=== PATIENT | female | born 1955 | race Caucasian/White ===

== ENCOUNTER 2017-04-16 17:20 | Emergency (ER) | payer BC, SELFPAY ==
[2017-04-16 17:21] VITALS: BP 169/90; PULSE 70; RESP 17; TEMP 36.6; O2SAT 95; BMI 43.7
[2017-04-16 18:18] VITALS: BP 118/60; PULSE 63; RESP 13; O2SAT 95
--- NOTE | 2017-04-16 18:44 | EKG12_ITS ---
Test Reason : Blood Pressure : / mmHG Vent. Rate : 053 BPM Atrial Rate : 053 BPM P-R Int : 192 ms QRS Dur : 082 ms QT Int : 430 ms P-R-T Axes : 005 009 022 degrees QTc Int : 403 ms Sinus bradycardia Otherwise normal ECG Confirmed by REYMUNDO RAYMOND ([id number]), health editor SHEN SINCLAIR ([id number] on 04/21/2017 10:08:35 AM Referred By: ERNIE Confirmed By:REYMUNDO RAYMOND
--- NOTE | 2017-04-16 18:44 | CT_ITS ---
STUDY: CTA OF THE BRAIN REASON FOR EXAM: Female, 61 years old. Headache for 2 weeks, dizziness, high blood pressure. RADIATION DOSAGE (If Supplied By Facility): CTDIvol = ( 22.19 ) mGy, DLP = ( 1409.55 ) mGycm TECHNIQUE: CT angiography was performed with a multi-detector CT scanner. Data acquisition was obtained from the skull base through the vertex following intravenous administration of 100 ml of Isovue-370. MIP images were reconstructed from the axial data set. Post-processing of the angiographic images was performed, with multiplanar reformation and 3D reconstruction. Individualized dose optimization techniques were used for this CT. COMPARISON: Noncontrast CT brain April 06, 2017. FINDINGS: Normal bilateral petrous carotid arteries. There is minimal calcified plaque formation of the right cavernous carotid artery, without a cross-sectional luminal stenosis. There is minor calcified plaque formation of the left cavernous carotid artery, without a cross-sectional luminal stenosis. Normal A1 segment of the right anterior cerebral artery. Normal A1 segment of the left anterior cerebral artery. Normal intact anterior communicating artery (ACOM). Normal bilateral A2 segments of the anterior cerebral arteries. Normal M1 and M2 segments of the right middle cerebral artery, with a normal M1 bifurcation. Normal M1 and M2 segments of the left middle cerebral artery, with a normal M1 bifurcation. Normal right posterior communicating artery (PCOM). There is non-visualization of the left posterior communicating artery (PCOM). Normal bilateral vertebral arteries. Normal basilar artery with a normal basilar bifurcation. The visualized bilateral superior cerebellar (SCA) arteries are normal. Normal bilateral P1, P2 and visualized P3 segments of the posterior cerebral arteries. There is no demonstrated aneurysm of the [place]. There is no demonstrated abnormality of the visualized brain. CT/CTA Head W/WO Contrast IMPRESSION: Normal [place] without a demonstrated aneurysm or hemodynamically significant stenosis. Electronically Signed: Kevin Bass MD at 19:58 EST , Service support ,
--- NOTE | 2017-04-16 18:44 | CT_ITS ---
STUDY: CTA NECK WITH CONTRAST REASON FOR EXAM: Female, 61 years old. Headache, dizziness, elevated blood pressure RADIATION DOSAGE (If Supplied By Facility): CTDIvol = ( ) mGy, DLP = ( ) mGycm TECHNIQUE: CT angiography with multi-detector data acquisition was performed from the aortic arch to the skull base following intravenous administration of 100 ml of Isovue-370 contrast. MIP images were reconstructed from the axial data set. Post-processing of the angiographic images was performed, with multiplanar reformation and 3D reconstruction. Individualized dose optimization techniques were used for this CT. COMPARISON: None. FINDINGS: Incidental note of an 8 x 5 x 7 mm hypodense lesion in the upper left lobe of the thyroid gland. There are multilevel degenerative changes of the cervical spine. Mild fullness of the soft tissues of the posterior nasopharynx may reflect hypertrophy of the adenoids. AORTIC ARCH: Normal visualized aortic arch. Normal origins of the brachiocephalic, left common carotid, and left subclavian arteries. RIGHT CAROTID ARTERIES: Normal right common carotid artery (CCA). Normal right common carotid bulb. Normal origin of the right internal carotid (ICA) artery without a hemodynamically significant stenosis. There is tortuous elongation of the proximal cervical portion of the right internal carotid artery. Normal origin of the right external carotid artery (ECA). LEFT CAROTID ARTERIES: Normal left common carotid artery (CCA). Normal left common carotid bulb. Normal origin of the left internal carotid (ICA) artery without a hemodynamically significant stenosis. There is borderline to mild tortuous elongation of the cervical portion of the left internal carotid artery. Normal origin of the left external carotid artery (ECA). VERTEBRAL ARTERIES: Patent bilateral vertebral arteries without hemodynamically significant stenosis. Mild smooth narrowing is seen at the origin of the right vertebral artery, while there is a hairpin tortuosity of the proximal left vertebral artery. CT/CTA Neck W/WO Contrast IMPRESSION: 1. No hemodynamically significant stenosis of the bilateral cervical carotid and vertebral arteries. 2. 8 mm lesion in the upper left lobe of the thyroid gland. Further characterization with ultrasound is advised. 3. Multilevel degenerative changes of the cervical spine. Electronically Signed: Kevin Bass MD at 19:45 EST , Service support ,
[2017-04-16 19:04] LABS: Absolute Lymphocyte Count 2.18 X10^3/ul (0.83-4.51); Absolute Neutrophil Count 4.9 X10^3/uL (2.0-7.7); Basophil# 0.03 X10^3/uL; Basophil% 0.4 % (0-1); Eosinophil# 0.11 X10^3/uL; Eosinophils% 1.4 % (0-5); Hematocrit 44.4 % (37-47); Hemoglobin 14.9 g/dl (12.0-15.0); Lymphocyte # 2.18 X10^3/ul (4.0); Lymphocyte % 28.1 % (19-41); Mean Corp Hgb Conc 33.6 g/gl (32-36); Mean Corpuscular Hgb 27.9 pg (27.0-32.0); Mean Corpuscular Volume 83.1 fL (81-99); Mean Platelet Vol. 10.1 fl (6.2-12.0); Monocyte# 0.57 X10^3/uL; Monocyte% 7.4 % (0-10); Neutrophil # 4.85 X10^3/uL (2.7-7.7); Neutrophil % 62.6 % (47-70); Platelet Count 296 K/mm3 (150-450); RBC Distribution Width CV 13.2 % (11.6-14.6); RBC Distribution Width SD 39.7 fl (35.1-43.9); Red Blood Count 5.34 M/mm3 (4.2-5.4); White Blood Count 7.8 K/mm3 (4.4-11.0)
[2017-04-16 19:09] LABS: Anion Gap 7 (5-15); BUN 24 mg/dL (7-18); BUN/Creat Ratio 24.7 RATIO (10-20); Calcium,Total 8.7 mg/dL (8.5-10.1); Chloride 108 mmol/L (98-107); Creatinine, Serum 0.97 mg/dL (0.55-1.02); EST Glomerular Filtration Rate 62 mL/min (>60); Est Glom Filt Rate - Afr Amer 75 mL/min (>60); Estimated Creatinine Clearance 51.02 ml/min; Glucose 109 mg/dL (70-110); POSITIVE COUNT NO; POSITIVE DIFFERENTIAL NO; POSITIVE MORPHOLOGY NO; Potassium 3.9 mmol/L (3.5-5.1); Sodium Level 141 mmol/L (136-145)
[2017-04-16 20:08] VITALS: BP 139/71; PULSE 60; RESP 16; O2SAT 96
--- NOTE | 2017-04-16 20:42 | ED.DCSUM_ITS ---
- ER Visit Summary Date of Service: 04/16/17 Chief Complaint: Headache and elevated blood pressure History of Present Illness: The patient is a 61 F who states that after Piyush and beginning of this month she is sick. She had a lot of coughing. She states that since that time she has had episodes where she gets a bad headache on the left side and she takes her blood pressure is elevated. She had her blood pressure pills altered yesterday. Today she had little ones with her and began to have the headache her blood pressures up and she just did not feel right and that was concerning for her. She denies any syncope. She denies any arm or leg symptoms. No slurred speech. No vision changes. Physical Examination: Blood pressure in the room is 118/60 temperature 97.9 heart rate is 63 respirations are 13 pulse ox is 95% on room air Gen: Well-nourished well-developed Head: Normocephalic atraumatic Eyes: Perrl EOMI ENT: TMs clear no rhinorrhea moist mucous membranes Neck: Supple no lymphadenopathy no JVD nontender CVS: Regular rate rhythm no murmurs normal S1-S2 Respiratory: No distress clear to auscultation bilaterally chest nontender Abdomen: Soft nontender nondistended normal bowel sounds no masses Back: Nontender Extremity: Nontender no edema Skin: Normal color no rash Neuro: alert orientated ?3 CN II-XII intact normal strength sensation reflexes gait cerebellar Psych: Normal affect normal mood Test Results: EKG sinus at a rate of 53. CBC and chemistries are normal. CTA of the head and neck were negative. Emergency Department Course and Treatment: There is no evidence of dissection. No evidence of aneurysm. Think the patient is having difficulty managing her blood pressure with frequent ups and downs. She does take her blood pressure quite frequently throughout the day which could contribute to her elevated pressures. Think it safe to discharge her home and have her follow-up with her doctors. I recommend her staying with her new regimen of blood pressure pills Impression: 1. Headache 2. Elevated blood pressure This note was generated with [employer] dictation software. It may contain incorrect words, spelling, and punctuation that were not noted in review of the chart prior to signing ED Disposition - Plan for ED Patient: Disposition: Home or Assisted Living Chief Complaint: Hypertension Instructions: ED HTN Established Referrals: Chacha Bynum DO [Primary Care Provider] - 1 Week
[2017-04-16 21:07] VITALS: BP 138/97; PULSE 60; RESP 16; O2SAT 93
== END 2017-04-16 21:08 | disposition home or self-care (01) ==
PROVIDERS: Emergency Provider Emergency Medicine; Family Provider Internal Medicine; PCP Internal Medicine
DX: R51 Headache (principal); R03.0 Elevated blood-pressure reading, without diagnosis of hypertension; R05 Cough
CPT/HCPCS: 70496; 70498; 80048; 85025; 93005; 99284; Q9967; A4216

== ENCOUNTER → 2017-04-22 12:32 | Outpatient (CLI) | payer BC, SELFPAY ==
--- NOTE | 2017-04-22 12:34 | US_ITS ---
STUDY: THYROID ULTRASOUND REASON FOR EXAM: Female, 61 years old. Thyroid nodule TECHNIQUE: Ultrasound evaluation of the thyroid was performed with real-time and static arteaga-scale imaging. COMPARISON: None. FINDINGS: RIGHT LOBE: The right lobe of the thyroid gland measures 4.8X2X1.7 cm. There is a homogeneous echotexture. 8 x 6 x 6.0 nodule. This is in the mid pole. The lesion is solid with regular margins and intra- nodular doppler flow. LEFT LOBE: The left lobe of the thyroid gland measures 4.4X2.1X1.4 cm. There is a homogeneous echotexture. Cystic nodule containing calcification visualized measuring 8 x 7 x 5 mm. Hypervascular nodule noted measuring 10 x 7 x 6 cm. Cyst noted measuring 3 x 4 x 2 mm. The lesion is solid/cystic with regular margins and INTRA AND kush nodular doppler flow. ISTHMUS: The isthmus measures 2mm. US/Thyroid IMPRESSION: Bilateral thyroid nodules. The [place] [employer] (AACE) in collaboration with the [employer] (MAGDALENO) and the Thyroid Association (ETA) published guidelines for the diagnosis and management of thyroid nodules. Biopsy of any solid and hypoechoic nodule larger than 1 cm in diameter. Thyroid nodules of any size undergo biopsy if the patient has been exposed to irradiation, has a family history of medullary carcinoma or multiple endocrine neoplasia, or has previously undergone partial thyroidectomy for thyroid cancer or if an elevated calcitonin level is present. The AACE/MAGDALENO/ETA guidelines recommend biopsy of nodules of any size with marked hypoechogenicity, irregular or microlobulated margins, a taller than wide configuration (anteroposterior dimension greater than transverse dimension), microcalcifications, or chaotic arrangement of intranodular vascular images or chaotic intranodular vascular spots. These guidelines recommend biopsy independent of size if ultrasonography suggests the presence of metastatic lymph nodes or if extracapsular growth is noted in the nodule. They recommend biopsy of the solid component of all complex cystic nodules because of the risk of cystic papillary carcinoma. They further suggest that nodules that are hot on scintigraphy do not require biopsy. -Current Guidelines for the Management of Thyroid Nodules. Hollis Curtis MD, EZE MARION. Endocr Pract. 2012; 18(4): 596-599. Electronically Signed: Huy Lew MD at 16:49 EST , Service support ,
== END ==
PROVIDERS: Family Provider Internal Medicine; PCP Internal Medicine; Visit Provider Internal Medicine
DX: E04.1 Nontoxic single thyroid nodule (principal)
CPT/HCPCS: 76536

== ENCOUNTER → 2017-05-18 07:32 | Outpatient (CLI) | payer BC, SELFPAY ==
[2017-05-18 07:38] LABS: Bacteria 0 SEEN /hpf (None Seen); Mucous, Urine 0 SEEN /hpf (<or=2+); Red Blood Cells-Urine 0 SEEN /hpf (0-5)
[2017-05-18 08:31] LABS: Absolute Lymphocyte Count 2.44 X10^3/ul (0.83-4.51); Absolute Neutrophil Count 4.5 X10^3/uL (2.0-7.7); Basophil# 0.04 X10^3/uL; Basophil% 0.5 % (0-1); Eosinophil# 0.09 X10^3/uL; Eosinophils% 1.2 % (0-5); Hematocrit 44.8 % (37-47); Hemoglobin 15.4 g/dl (12.0-15.0); Lymphocyte # 2.44 X10^3/ul (4.0); Lymphocyte % 32.4 % (19-41); Mean Corp Hgb Conc 34.4 g/gl (32-36); Mean Corpuscular Volume 81.5 fL (81-99); Mean Platelet Vol. 10.2 fl (6.2-12.0); Monocyte# 0.43 X10^3/uL; Monocyte% 5.7 % (0-10); Neutrophil # 4.52 X10^3/uL (2.7-7.7); Neutrophil % 60.1 % (47-70); Platelet Count 279 K/mm3 (150-450); RBC Distribution Width SD 38.9 fl (35.1-43.9); White Blood Count 7.5 K/mm3 (4.4-11.0)
[2017-05-18 08:32] LABS: Color, Urine Yellow (Yellow); Glucose, Dipstick Normal (Normal); Ketone-Dipstick Negative (Negative); Leukocyte Esterase-Dipstick 25 /ul (Negative); Nitrite-Dipstick Negative (Negative); Occult Blood-Urine Negative /ul (Negative); Protein-Dipstick Negative (Negative); Specific Gravity, Urine 1.015 (1.002-1.030); Urine Bilirubin Dipstick Negative (Negative); Urine Clarity Sl. Cloudy (Clear); Urine Urobilinogen Normal (Normal)
[2017-05-18 08:34] LABS: POSITIVE COUNT NO; POSITIVE DIFFERENTIAL NO; POSITIVE MORPHOLOGY NO
[2017-05-18 08:45] LABS: Squamous Epithelial Cells - UA 0-5 SEEN /hpf (5-10); White Blood Cells 0-5 SEEN /hpf (0-5)
[2017-05-18 08:57] LABS: Vitamin B12 418 pg/mL (211-911); Vitamin D,25 Hydroxy 29.9 ng/mL (19.95-100.01)
[2017-05-18 09:02] LABS: AST(SGOT) 11 U/L (15-37); Alanine Aminotransfer ALT/SGPT 19 U/L (13-56); Albumin, Serum 3.5 g/dL (3.2-5.0); Alkaline Phosphatase 76 U/L (45-117); Anion Gap 10 (5-15); BUN 25 mg/dL (7-18); BUN/Creat Ratio 35.1 RATIO (10-20); Calcium,Total 8.7 mg/dL (8.5-10.1); Chloride 110 mmol/L (98-107); Cholesterol 197 mg/dL (200); Creatinine, Serum 0.71 mg/dL (0.55-1.02); EST Glomerular Filtration Rate 89 mL/min (>60); Est Glom Filt Rate - Afr Amer 107 mL/min (>60); Globulin 3.4 g/dL (2.2-4.2); Glucose 81 mg/dL (74-106); High Density Lipoprotein 41 mg/dL; Magnesium 2.1 mg/dL (1.6-2.6); Microalbumin,Random Urine 6.8 mg/L (NO RANGE EST.); Potassium 3.9 mmol/L (3.5-5.1); Protein, Total 6.9 g/dL (6.4-8.2); Sodium Level 141 mmol/L (136-145); Thyroid Stim Hormone (TSH) 1.39 uIU/mL (0.358-3.74); Triglycerides 82 mg/dL; Very Low Density Lipoprotein 16 mg/dL (5-40)
== END ==
PROVIDERS: Family Provider Internal Medicine; PCP Internal Medicine; Visit Provider Internal Medicine
DX: E53.8 Deficiency of other specified B group vitamins (principal); E55.9 Vitamin D deficiency, unspecified; E78.2 Mixed hyperlipidemia; I10 Essential (primary) hypertension; E83.42 Hypomagnesemia
CPT/HCPCS: 36415; 80053; 80061; 81001; 82043; 82306; 82570; 82607; 83735; 84443; 85025

== ENCOUNTER → 2017-05-20 09:21 | Outpatient (CLI) | payer BC, SELFPAY | PROVIDERS: Family Provider Internal Medicine; PCP Internal Medicine; Visit Provider Internal Medicine | DX: I49.5 Sick sinus syndrome (principal) | CPT/HCPCS: 93225; 93226 ==

== ENCOUNTER 2017-05-29 15:03 | Emergency (ER) | payer BC, SELFPAY ==
[2017-05-29 15:04] VITALS: BP 171/107; PULSE 71; RESP 16; TEMP 36.4; O2SAT 98; BMI 41.3
--- NOTE | 2017-05-29 15:25 | EKG12_ITS ---
Test Reason : Blood Pressure : / mmHG Vent. Rate : 060 BPM Atrial Rate : 060 BPM P-R Int : 184 ms QRS Dur : 090 ms QT Int : 430 ms P-R-T Axes : 005 006 021 degrees QTc Int : 430 ms Normal sinus rhythm Normal ECG Confirmed by NELLA WILKS MD ([id number]), news copy editor SHEN SINCLAIR ([id number]) on 06/01/2017 2:50:51 PM Referred By: ROCAEL Confirmed By:NELLA WILKS MD
--- NOTE | 2017-05-29 15:26 | ED.VISSUMM ---
- ER Visit Summary Date of Service: 05/29/17 Chief Complaint: I feel sheepish History of Present Illness: The patient is a 61 F history of hypertension. Patient states recently her blood pressures have been too high and sometimes too low. Today she saw her licensed and certified midwife Dr. Jalloh who adjusted her blood pressure medications. It was low prior to coming to the ER and now it is high. She denies any headache. She denies any chest pain. She denies any shortness of breath. She states she had a recent echocardiogram was is okay and she has an upcoming stress test. She denies any nausea or vomiting. Several days ago had diarrhea which is since resolved. She denies any fever or melena. Physical Examination: Very well appearing middle-aged female. Vital signs are stable afebrile. Her pulse ox is 90% room air her initial blood pressure is 171/107. She is in no distress. Her blood pressure will be repeated. HEENT exam unremarkable. No droop. Normal speech. Neck nontender no lymphadenopathy. Lungs clear to auscultation bilaterally. Heart regular rate and rhythm no murmur. Abdomen is soft and nontender. She is moving all 4 extremities. They are nontender without edema or cords. Neurologically she is awake and alert with no focal deficits. Test Results: Patient recently had numerous labs including CBC, BMP, TSH etc. which I reviewed and are unremarkable. She is going to have an EKG done today. EKG shows a sinus rhythm rate of 60 with no acute abnormalities and no change from her recent EKG done in March. Orthostatic vital signs were normal. Emergency Department Course and Treatment: She has a normal exam. Her blood pressure currently is around 120/70. She has had recent labs which were unremarkable. She will be discharged to home. Treatment Plan: He has been instructed to log her blood pressures twice daily. Continue on her current medications. Follow-up with her licensed and certified midwife and/or primary care physicians to have her blood pressure medications adjusted as needed for her daily recordings. Disposition: discharge Impression: Acute on chronic hypertension This note was generated with [employer] dictation software. It may contain incorrect words, spelling, and punctuation that were not noted in review of the chart prior to signing ED Disposition - Plan for ED Patient: Chief Complaint: Hypertension Referrals: Chacha Bynum DO [Primary Care Provider] -
--- NOTE | 2017-05-29 15:29 | ED.DCSUM_ITS ---
- ER Visit Summary Date of Service: 05/29/17 Chief Complaint: I feel sheepish History of Present Illness: The patient is a 61 F history of hypertension. Patient states recently her blood pressures have been too high and sometimes too low. Today she saw her hydraulic tester Dr. Jalloh who adjusted her blood pressure medications. It was low prior to coming to the ER and now it is high. She denies any headache. She denies any chest pain. She denies any shortness of breath. She states she had a recent echocardiogram was is okay and she has an upcoming stress test. She denies any nausea or vomiting. Several days ago had diarrhea which is since resolved. She denies any fever or melena. Physical Examination: Very well appearing middle-aged female. Vital signs are stable afebrile. Her pulse ox is 90% room air her initial blood pressure is 171 /107. She is in no distress. Her blood pressure will be repeated. HEENT exam unremarkable. No droop. Normal speech. Neck nontender no lymphadenopathy. Lungs clear to auscultation bilaterally. Heart regular rate and rhythm no murmur. Abdomen is soft and nontender. She is moving all 4 extremities. They are nontender without edema or cords. Neurologically she is awake and alert with no focal deficits. Test Results: Patient recently had numerous labs including CBC, BMP, TSH etc. which I reviewed and are unremarkable. She is going to have an EKG done today. EKG shows a sinus rhythm rate of 60 with no acute abnormalities and no change from her recent EKG done in March. Orthostatic vital signs were normal. Emergency Department Course and Treatment: She has a normal exam. Her blood pressure currently is around 120/70. She has had recent labs which were unremarkable. She will be discharged to home. Treatment Plan: He has been instructed to log her blood pressures twice daily. Continue on her current medications. Follow-up with her hydraulic tester and/or primary care physicians to have her blood pressure medications adjusted as needed for her daily recordings. Disposition: discharge Impression: Acute on chronic hypertension This note was generated with [employer] dictation software. It may contain incorrect words, spelling, and punctuation that were not noted in review of the chart prior to signing ED Disposition - Plan for ED Patient: Chief Complaint: Hypertension Referrals: Chacha Bynum DO [Primary Care Provider] -
[2017-05-29 16:04] VITALS: BP 123/77; PULSE 59; RESP 14; O2SAT 96
[2017-05-29 16:16] VITALS: BP 116/81; BP 121/90; BP 123/77; PULSE 59; PULSE 60; PULSE 61
--- NOTE | 2017-05-29 16:26 | DCINST.ED_ITS ---
ED Disposition - Plan for ED Patient: Disposition: Home or Assisted Living Chief Complaint: Hypertension Referrals: Chacha Bynum DO [Primary Care Provider] - As Needed Nehemias Rich MD [STAFF PHYSICIAN] - 1-2 Weeks Additional Instructions: Log blood pressures twice daily and follow-up your primary care physician and/ or Dr. Jalloh to have your blood pressure medications adjusted.
[2017-05-29 16:49] VITALS: BP 121/70; PULSE 68; RESP 16; O2SAT 97
== END 2017-05-29 16:51 | disposition home or self-care (01) ==
PROVIDERS: Emergency Provider Emergency Medicine; Family Provider Internal Medicine; PCP Internal Medicine
DX: I10 Essential (primary) hypertension (principal); R19.7 Diarrhea, unspecified
CPT/HCPCS: 93005; 99283

== ENCOUNTER → 2017-06-12 11:25 | Outpatient (CLI) | payer BC, SELFPAY ==
--- NOTE | 2017-06-12 18:22 | STRESSREP ---
Stress Test Report Exercise stress test. 61-year-old lady with a history of chest pain. Stress protocol: Resting EKG demonstrates normal sinus rhythm with rate of 67 bpm normal intervals and noted resting blood pressure is 128/84. The patient exercised according to regular Jimmie protocol for total duration of 5 minutes and 30 seconds attaining a maximum heart rate of 166 bpm which was 103% of maximum predicted heart rate the maximum workload attained was 7 metabolic equivalents. Patient maintained sinus rhythm throughout the recording. At rest there were no ST or T-wave changes noticed ischemia peak exercise no ST or T-wave changes were noted suggest ischemia. The resting blood pressure was 128/84 with a peak blood pressure of 252/120 the test was terminated due to dizziness. There were no EKG changes noted suggest ischemia. Conclusion: Exercise stress test with no EKG criteria for ischemia at a moderate workload. Severe hypertensive response to exercise.
== END ==
PROVIDERS: Family Provider Internal Medicine; PCP Internal Medicine; Visit Provider Internal Medicine Cardiovascular Disease
DX: I15.0 Renovascular hypertension (principal); I25.118 Atherosclerotic heart disease of native coronary artery with other forms of angina pectoris
CPT/HCPCS: 93017

== ENCOUNTER → 2017-09-17 10:32 | Outpatient (CLI) | payer BC, SELFPAY ==
--- NOTE | 2017-09-17 10:35 | VDLE_ITS ---
Reason For Study: LEG PAIN RIGHT LEFT CFV is compressible, spontaneous, phasic, GSV is normal. competent and demonstrates normal CFV is compressible, spontaneous, phasic, augmentation. competent, and demonstrates normal Procedure augmentation. Exam performed in department. FV is compressible, spontaneous, phasic, A preliminary report was called and/or faxed competent and demonstrates normal to Dr. Demarco. augmentation. POP V is compressible, spontaneous, phasic, competent and demonstrates normal augmentation. T/P Trunk is compressible. PTV is compressible. LT PerV is compressible. Interpretation Summary Deep veins of the left lower extremity are patent and compressible segmentally. There is no evidence of left lower extremity deep vein thrombosis. Valvular competence appears intact within the proximal deep venous system on the left . The left greater saphenous vein appears patent and compressible segmentally. Ordering Physician: Candida Demarco Referring Physician: Candida Demarco Performed By: Harriett Banks RVT
== END ==
PROVIDERS: Family Provider Internal Medicine; PCP Internal Medicine; Visit Provider Internal Medicine
DX: M79.669 Pain in unspecified lower leg (principal)
CPT/HCPCS: 93971

== ENCOUNTER → 2017-09-25 10:14 | Outpatient (CLI) | payer BC, SELFPAY ==
--- NOTE | 2017-09-25 10:18 | RAD_ITS ---
STUDY: X-RAY - PELVIS AND LEFT HIP REASON FOR EXAM: Female, 61 years old. Left hip pain TECHNIQUE: Radiological exam, hip, unilateral, with pelvis when performed; 2 or 3 views. COMPARISON: None. FINDINGS: There is a non-specific bowel gas pattern. Normal visualized soft tissue structures. Normal bilateral iliac wings, sacroiliac joints and visualized sacrum. Normal bilateral superior and inferior pubic rami. Normal pubic symphysis. Normal bilateral ischial tuberosities. Normal visualized femoral head. Normal acetabulum. Normal hip joint. RAD/Hip 2-3 Views with Pelvis IMPRESSION: Normal x-ray examination of the pelvis and hip. Electronically Signed: Huy Lew MD at 20:25 EDT , Service support ,
--- NOTE | 2017-09-25 10:18 | RAD_ITS ---
STUDY: X-RAY - LEFT SHOULDER REASON FOR EXAM: Female, 61 years old. Left shoulder pain TECHNIQUE: 4 view(s) of the shoulder. COMPARISON: None. FINDINGS: Normal glenohumeral articulation. There is degenerative arthrosis of the acromioclavicular joint without inferior osseous spur formation. Normal acromion. Normal humeral head and visualized proximal humerus. The soft tissue structures are unremarkable. Normal visualized pulmonary apex. RAD/Shoulder min 2 Views IMPRESSION: There is degenerative arthrosis of the acromioclavicular joint without inferior osseous spur formation. Electronically Signed: Huy Lew MD at 19:47 EDT , Service support ,
== END ==
PROVIDERS: Family Provider Internal Medicine; PCP Internal Medicine; Visit Provider Internal Medicine
DX: M25.512 Pain in left shoulder (principal); M25.552 Pain in left hip
CPT/HCPCS: 73030; 73502

== ENCOUNTER → 2017-10-06 09:15 | Outpatient (CLI) | payer BC, SELFPAY ==
--- NOTE | 2017-10-06 09:17 | BI_ITS ---
MAMMOGRAPHY - BILATERAL SCREENING REASON FOR EXAM: Female, 61 years old. Routine annual screening examination. PERTINENT HISTORY: Sister with breast cancer. TECHNIQUE: Digital bilateral breast cynthia (3D mammographic acquisition) in the CC and MLO projections. 2-D mediolateral oblique (MLO) and craniocaudad (CC) views of both breasts were obtained. CAD: Full Field Digital Mammography with Computer Added Detection was performed. COMPARISON: Comparison is made with prior examination dated July 23, 2016 and April 11, 2015. FINDINGS: Breast Composition: The breasts are almost entirely fatty. There are no dominant masses or suspicious calcifications. No other significant abnormalities are identified. There has been no significant change since the prior study. BI/SCREENING MAMM (CAD), BILAT IMPRESSION: Stable bilateral screening mammogram. Yearly follow-up mammogram recommended. (A) ASSESSMENT CATEGORY: BIRADS Category 1: Negative. A letter regarding these results will be sent to the patient by the facility within 30 days. Approximately 10% of breast cancers are not detected by mammography. A normal mammogram should not delay biopsy of a clinically suspicious abnormality. [id number] Electronically Signed: Jacob Hagan MD at 10:52 EDT Tel [phone], Service support ,
--- NOTE | 2017-10-06 09:18 | BD_ITS ---
STUDY: DUAL ENERGY X-RAY ABSORPTIOMETRY / DXA REASON FOR EXAM: Female, 61 years old. The patient is postmenopausal. Loss of height. TECHNIQUE: Bone Mineral Density (BMD) measurements of lumbar spine and bilateral hips were obtained. COMPARISON: None. FINDINGS: Lumbar Spine (L1-L4): g/cm2 (1.387) / T-score (1.9) / Z-score (3.1) Findings are suggestive of normal bone density with a low fracture risk. Left Femur Total: g/cm2 (1.199) / T-score (1.5) / Z-score (2.5) Left Femoral Neck: g/cm2 (1.063) / T-score (0.2) / Z-score (1.4) Right Femur Total: g/cm2 (1.229) / T-score (1.8) / Z-score (2.7) Right Femoral Neck: g/cm2 (1.200) / T-score (1.2) / Z-score (2.4) BD/Dexa Bone Density Study IMPRESSION: The patient is considered normal as outlined below according to World Richy Organization (WHO) criteria with a low fracture risk. Reference Information: The T-score is the number of standard deviations above or below the standard which is normal for young adults at their peak bone mineral density. The World Health Organization (WHO) interprets the T-scores as follows: Above -1 Normal bone density Between -1 and -2.5 Osteopenia Equal to / or below -2.5 Osteoporosis As a practical clinical guideline, osteopenia may be graded as follows: Mild -1 through -1.5 Moderate -1.6 through -2.0 Severe -2.1 through -2.4 The Z-score is the number of standard deviations above or below age-matched controls. A Z-score of less than -1.5 would be considered abnormal. References: 1. NIH Osteoporosis and Related Bone Diseases http://www.osteo.org 2. International Society for Clinical Densitometry http://www.iscd.org 3. National Osteoporosis Foundation http://www.nof.org Electronically Signed: Jacob Hagan MD at 9:54 EDT Tel [phone], Service support ,
== END ==
PROVIDERS: Family Provider Internal Medicine; PCP Internal Medicine; Visit Provider Internal Medicine
DX: Z00.00 Encounter for general adult medical examination without abnormal findings (principal); Z78.0 Asymptomatic menopausal state; Z12.31 Encounter for screening mammogram for malignant neoplasm of breast
CPT/HCPCS: 77063; 77067; 77080

== ENCOUNTER 2017-10-14 15:30 | Outpatient (RCR) | payer BC, SELFPAY ==
--- NOTE | 2017-09-30 13:20 | HP.PTEVAL ---
Patient's Visit Information KVNG ROMERO is a 61 year old F referred to Physical Therapy by Candida Demarco DO with a diagnosis of L shoulder RC tear, L knee pain. Date of Evaluation: 09/30/17 Physical Therapist: Ken Navarro PT, - Visit Plan Frequency: 2x /Week Duration: 4 Weeks Plan: postural ex's ,graded ROM left shoulder,grade ROM /PRE'S,flexablity,NU-STEP,modalties PRN. Patient has significant RTC tear with (+ drop arm) left shoulder - Subjective Subjective: Pt is a 61 y/o female referred for L RTC tear and L knee pain. L shoulder: She has 10+ year history of L shoulder pain with a RTC tear confirmed by MRI. Three weeks ago she started noticing increased pain when she was moving a swimming pool wall and feels like this irritated her shoulder. She did not hear a pop but noticed increased pain in the lateral shoulder quickly. Currently, she is not having much pain but is unable to elevate her L arm. She had full ROM before this with only occational pain. Denies any symptoms distal to the elbow. She is R hand dominant but using her L UE quite a bit. She did have injection about 2 weeks ago with minimal improvement. Denies any surgery for the L shoulder. Aggrevating factors: OH reaching. Easing factors: rest. L knee: Pt has a long history of L knee pain, but about 2 weeks ago she had started noticing increased L knee pain when she was busy with yard/gardening work. She reports posterior knee pain and calf pain that is worse with walking but improved with rest. She describes her symptoms as feeling tight. She also notices pain in her ankle at times. Denies LBP, n/t in the LEs. She reports that she is in talks with a surgeon to perform a possible replacement in the future. Injection to L knee about a week ago with minimal improvement. Denies surgical history to the L knee. 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 - Pain L shoulder Pain Intensity (Out of 10): 0 Pain Intensity Range: 0 L knee Pain Intensity (Out of 10): 4 Pain Intensity Range: 0, 9 - Objective OBSERVATION: Increased swelling L medial and posterior knee. Sulcus sign L shoulder. PALPATION: Tenderness medial and lateral distal hamstring tendons. No tenderness L shoulder. GAIT: Ambulates with increased knee flexion throughout L stance phase, antalgic L stance. ROM: L shoulder flexion AROM 75 degrees, functional IR L3, unable to perform functional ER actively. PROM full L shoulder. R shoulder AROM WNL. L knee AROM -12-80. R knee -7-124. R ankle DF 12, L ankle DF 10. STRENGTH: L shoulder flexion/abduction 2+/5, ER 4/5, IR 5/5. R shoulder 5/5. B hip abd/ext 5/5. - Special Tests R Shoulder Drop Sign - IS Test: Negative R Shoulder Sulcus Sign - Inferior Laxity: Negative L Shoulder Drop Sign - IS Test: Positive L Shoulder Sulcus Sign - Inferior Laxity: Positive - Goals Goal 1:: Pt will demonstrate L shoulder elevation AROM of 120 degrees to improve tolerance with overhead activities. Goal Time Frame: 4-6 Weeks Goal 2:: Pt will demonstrate L knee ROM of -5-120 degrees to normalize mechanics with gait and stair negotiation. Goal Time Frame: 4-6 Weeks Goal 3:: Pt will report ability to ambulate for 15 minutes or greater to improve tolerance with work/household duties. Goal Time Frame: 4-6 Weeks Goal 4:: Pt will improve LEFS score by 10 points or greater to show improved function and QOL. Goal Time Frame: 4-6 Weeks Goal 5:: Pt will be independent with HEP to sustain gains made in the clinic. Goal Time Frame: 4-6 Weeks - Rehabilitation Potential Physical Therapy Diagnosis: Pt is a 61 y/o female referred to PT for L shoulder RC tear and L knee pain. Both problem areas are acute on chronic that worsed ~2-3 weeks ago. Her L shoulder AROM and strength are significantly impaired and consistent with supraspinatus tearing. Pt's L knee is lacking extension ROM and quadriceps engagement and is consistent with OA deficits. She has activity limitations that include decreased ambulation tolerance, weight bearing tolerance, difficulty reaching overhead, and difficulty lifting. 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 The patient's prognosis for an ideal outcome is fair for her L shoulder problem and good for her L knee problem. The pt will benefit from skilled PT to address the documented impairments to maximize function. Rehabilitation Potential: Good - Anticipated Interventions Patient/Client Instruction: Educate patient on: Condition, Plan of Care For the Purpose of:: To decrease pain, To increase ROM, To improve muscle performance and motor function, To improve ability to perform ADL's, To increase tolerance to activity/condition/position, To improve performance and independence with ADL's, To improve ability of physical actions for home/community/work/leisure, To improve gait and locomotor functions, To improve health of tissue, To decrease soft tissue restriction, To increase flexibility/ROM, To reduce risk of recurrence, To improve self management Therapeutic Exercise to Include: Strength training, Endurance training, Postural training, Flexibilty training, Gait and locomotor training, Active ROM For the Purpose of:: To decrease pain, To increase ROM, To improve muscle performance and motor function, To improve ability to perform ADL's, To increase tolerance to activity/condition/position, To improve performance and independence with ADL's, To improve ability of physical actions for home/community/work/leisure, To improve gait and locomotor functions, To improve health of tissue, To decrease soft tissue restriction, To increase flexibility/ROM Manual Therapy Techniques to Include: Mobilization, Passive ROM, Soft tissue mobilization For the Purpose of:: To decrease pain, To increase ROM, To improve muscle performance and motor function, To improve ability to perform ADL's, To increase tolerance to activity/condition/position, To improve performance and independence with ADL's, To improve ability of physical actions for home/community/work/leisure, To improve gait and locomotor functions, To improve health of tissue, To decrease soft tissue restriction, To increase flexibility/ROM, To improve endurance, To reduce risk of recurrence, To improve self management TENS: Yes IF ES: Yes Other electric stimulation: Yes Cryotherapy (ice pack, ice massage): Yes Thermo therapy (hot pack): Yes Ultrasound (thermal/non thermal): Yes For the Purpose of:: To decrease pain, To increase ROM, To improve health of tissue, To decrease soft tissue restriction, To increase flexibility/ROM Thank you for the opportunity to evaluate your patient. For Medicare and Medicare HMO plans, please review the plan of care and approve it. It will need to be FAXED BACK to us at [phone] for Medicare purposes. Please let me know if there are questions or concerns regarding this plan of care. Physician Signature: Date:
--- NOTE | 2017-12-15 07:47 | HP.PTDCNRP_ITS ---
HP - Discharge Summary (1) - Patient Information KVNG ROMERO was seen in my office for initial evaluation on 09/30/17. The following Plan of Care was established for this patient: Initial Frequency: 2x /Week Initial Duration: 4 Weeks - Anticipated Interventions Patient/Client Instruction: Educate patient on: Condition, Plan of Care For the Purpose of:: To decrease pain, To increase ROM, To improve muscle perf ormance and motor function, To improve ability to perform ADL's, To increase tolerance to activity/condition/position, To improve performance and independence with ADL's, To improve ability of physical actions for home/community/work/leisure, To improve gait and locomotor functions, To improve health of tissue, To decrease soft tissue restriction, To increase flexibility/ROM, To reduce risk of recurrence, To improve self management Therapeutic Exercise to Include: Strength training, Endurance training, Postural training, Flexibilty training, Gait and locomotor training, Active ROM For the Purpose of:: To decrease pain, To increase ROM, To improve muscle performance and motor function, To improve ability to perform ADL's, To increase tolerance to activity/condition/position, To improve performance and independence with ADL's, To improve ability of physical actions for home/community/work/leisure, To improve gait and locomotor functions, To improve health of tissue, To decrease soft tissue restriction, To increase flexibility/ROM Manual Therapy Techniques to Include: Mobilization, Passive ROM, Soft tissue mobilization For the Purpose of:: To decrease pain, To increase ROM, To improve muscle performance and motor function, To improve ability to perform ADL's, To increase tolerance to activity/condition/position, To improve performance and independence with ADL's, To improve ability of physical actions for home/community/work/leisure, To improve gait and locomotor functions, To improve health of tissue, To decrease soft tissue restriction, To increase flexibility/ROM, To improve endurance, To reduce risk of recurrence, To improve self management TENS: Yes IF ES: Yes Other electric stimulation: Yes Cryotherapy (ice pack, ice massage): Yes Thermo therapy (hot pack): Yes Ultrasound (thermal/non thermal): Yes For the Purpose of:: To decrease pain, To increase ROM, To improve health of tissue, To decrease soft tissue restriction, To increase flexibility/ROM This patient was last seen in our office 10/14/17. Pertinent comments regarding their Physical therapy will appear below: Patient was seen for PT for left shoulder and and knee pain gocusing on ROM/strength. Patient had MRI knee showed complex tear of meniscus.Thus is d/c. At this point I will be discontinuing this patient from physical therapy. I would be happy to see this patient again in the future if found appropriate by the physician. Thank you! Ken Navarro, PT,
== END 2017-10-14 19:00 | disposition home or self-care (01) ==
LOC: PT 15:30
PROVIDERS: Family Provider Internal Medicine; PCP Internal Medicine; Visit Provider Internal Medicine
DX: M25.512 Pain in left shoulder (principal); M25.562 Pain in left knee
CPT/HCPCS: 97110; 97162

== ENCOUNTER 2017-10-20 08:55 | Outpatient (RCR) | payer BC, SELFPAY | END 2017-10-20 23:59 | LOC: NS 08:55 | PROVIDERS: Family Provider Internal Medicine; PCP Internal Medicine; Visit Provider Specialist | DX: E66.9 Obesity, unspecified (principal); Z68.41 Body mass index [BMI] 40.0-44.9, adult; Z71.3 Dietary counseling and surveillance | CPT/HCPCS: 97802 ==

== ENCOUNTER → 2017-11-19 15:00 | Outpatient (CLI) | payer BC, SELFPAY | PROVIDERS: Family Provider Internal Medicine; PCP Internal Medicine; Visit Provider Nurse Practitioner Gerontology | DX: R60.0 Localized edema (principal) | CPT/HCPCS: 93970 ==

== ENCOUNTER 2017-11-24 08:12 | Outpatient (RCR) | payer BC, SELFPAY | END 2017-12-20 23:59 | LOC: NS 08:12 | PROVIDERS: Family Provider Internal Medicine; PCP Internal Medicine; Visit Provider Specialist | DX: E66.9 Obesity, unspecified (principal); Z68.41 Body mass index [BMI] 40.0-44.9, adult; Z71.3 Dietary counseling and surveillance ==

== ENCOUNTER → 2017-12-07 11:18 | Outpatient (CLI) | payer BC, SELFPAY ==
--- NOTE | 2017-12-07 11:22 | RAD_ITS ---
STUDY: X-RAY CHEST REASON FOR EXAM: Female, 62 years old. Preop for knee surgery TECHNIQUE: PA and lateral views of the chest. COMPARISON: 04/06/2017 FINDINGS: The lungs are clear and expanded. There is no demonstrated pleural abnormality. Normal size heart. Normal mediastinum and jennifer. Normal visualized pulmonary arteries. Normal visualized aortic arch and descending thoracic aorta. Normal visualized thoracic spine. Normal visualized ribs, clavicles, and shoulders. There is no demonstrated abnormality of the visualized soft tissue structures of the upper abdomen. RAD/Chest PA and Lateral IMPRESSION: Normal x-ray examination of the chest. Electronically Signed: Kevin Garg MD at 17:43 EDT , Service support ,
== END ==
PROVIDERS: Family Provider Internal Medicine; PCP Internal Medicine; Visit Provider Internal Medicine
DX: Z01.818 Encounter for other preprocedural examination (principal)
CPT/HCPCS: 71046

== ENCOUNTER → 2017-12-09 17:30 | Outpatient (CLI) | payer BC, SELFPAY ==
--- NOTE | 2017-12-09 18:15 | MRI_ITS ---
STUDY: MRI LEFT KNEE REASON FOR EXAM: Female, 62 years old. Left knee pain. TECHNIQUE: Standardized fat and water weighted pulse sequences were obtained in all 3 orthogonal planes. COMPARISON: None. FINDINGS: There is a complex tear of the posterior horn of the medial meniscus with marked extrusion of the body and anterior horn. There is marked thinning of the articular cartilage of the medial femorotibial compartment with reactive subchondral bone marrow edema, subchondral cyst formation and osteophyte formation (coronal series 7 images 7-18). Normal medial collateral ligamentous complex (MCL). Normal distal semimembranosus, gracilis and semitendinosus tendons. Normal lateral meniscus. There is moderate thinning of the articular cartilage of the lateral femorotibial compartment with osteophyte formation (coronal series 7 images 10-17). Normal proximal tibiofibular articulation. Normal lateral collateral (fibular) ligament. Normal popliteus tendon. Normal biceps femoris tendon. Normal anterior cruciate ligament (ACL). Normal posterior cruciate ligament (PCL). Normal congruent patellofemoral articulation. There is moderate thinning of the articular cartilage of the patellofemoral compartment (axial series 3 images 10-15). Normal medial and lateral patellar retinaculum. Normal quadriceps tendon. Normal patellar tendon. Normal Hoffa's fat pad. There is a joint effusion (axial series 3 images 4-8). There is prepatellar subcutaneous soft tissue edema (sagittal series 5 images 10-16). The otherwise visualized osseous structures are unremarkable. MRI/Lower Ext Joint Only W/WO Cont IMPRESSION: Complex tear of the posterior horn of the medial meniscus with marked extrusion of the body and anterior horn. Marked thinning of the articular cartilage of the medial femorotibial compartment. Moderate thinning of the articular cartilage of the lateral femorotibial compartment. Moderate thinning of the articular cartilage of the patellofemoral compartment. Prepatellar subcutaneous soft tissue edema. Joint effusion. Electronically Signed: Bony Lam MD at 17:02 EDT , Service support ,
== END ==
PROVIDERS: Family Provider Internal Medicine; PCP Internal Medicine; Visit Provider Internal Medicine
DX: R93.6 Abnormal findings on diagnostic imaging of limbs (principal)
CPT/HCPCS: 73723; A9585

== ENCOUNTER 2017-12-30 05:51 | Inpatient (IN) | payer BC, SELFPAY ==
[2017-12-16 09:56] VITALS: BP 129/88; PULSE 57; RESP 16; TEMP 36.6; O2SAT 95; BMI 41.8
[2017-12-16 10:41] LABS: International Normalized Ratio 0.9; Prothrombin Time (Protime)PT. 12.5 SECONDS (11.7-14.9)
[2017-12-16 10:42] LABS: Partial Thromboplast Time 27.4 Seconds (24.1-36.2)
[2017-12-16 10:49] LABS: Absolute Lymphocyte Count 2.47 X10^3/ul (0.83-4.51); Absolute Neutrophil Count 6.1 X10^3/uL (2.0-7.7); Basophil# 0.06 X10^3/uL; Basophil% 0.6 % (0-1); Eosinophil# 0.13 X10^3/uL; Eosinophils% 1.4 % (0-5); Hematocrit 43.6 % (37-47); Hemoglobin 14.4 g/dl (12.0-15.0); Lymphocyte # 2.47 X10^3/ul (4.0); Lymphocyte % 26.6 % (19-41); Mean Corpuscular Hgb 27.5 pg (27.0-32.0); Mean Corpuscular Volume 83.4 fL (81-99); Mean Platelet Vol. 9.6 fl (6.2-12.0); Monocyte# 0.54 X10^3/uL; Monocyte% 5.8 % (0-10); Neutrophil # 6.07 X10^3/uL (2.7-7.7); Neutrophil % 65.5 % (47-70); POSITIVE COUNT NO; POSITIVE DIFFERENTIAL NO; POSITIVE MORPHOLOGY NO; Platelet Count 276 K/mm3 (150-450); RBC Distribution Width CV 13.3 % (11.6-14.6); RBC Distribution Width SD 40.1 fl (35.1-43.9); Red Blood Count 5.23 M/mm3 (4.2-5.4); White Blood Count 9.3 K/mm3 (4.4-11.0)
[2017-12-16 11:00] LABS: Microalbumin,Random Urine 20.5 mg/L (NO RANGE EST.); Microalbumin:Creatinine Ratio 10.5 mg/g CRE (<30 mg/g CRE)
[2017-12-16 11:05] LABS: Hemoglobin A1c 5.9 % (4.2-6.3)
[2017-12-16 11:06] LABS: Vitamin B12 391 pg/mL (211-911); Vitamin D,25 Hydroxy 21.6 ng/mL (29.95-100.01)
[2017-12-16 11:09] LABS: AST(SGOT) 10 U/L (15-37); Alanine Aminotransfer ALT/SGPT 21 U/L (13-56); Albumin, Serum 3.5 g/dL (3.2-5.0); Alkaline Phosphatase 76 U/L (45-117); Anion Gap 6 (5-15); BUN 19 mg/dL (7-18); BUN/Creat Ratio 22.5 RATIO (10-20); Bilirubin, Direct 0.09 mg/dL (0.00-0.30); Calcium,Total 8.5 mg/dL (8.5-10.1); Chloride 106 mmol/L (98-107); Cholesterol 152 mg/dL (200); Creatinine, Serum 0.84 mg/dL (0.55-1.02); EST Glomerular Filtration Rate 73 mL/min (>60); Est Glom Filt Rate - Afr Amer 88 mL/min (>60); Estimated Creatinine Clearance 58.18 ml/min; Globulin 3.5 g/dL (2.2-4.2); Glucose 88 mg/dL (74-106); High Density Lipoprotein 52 mg/dL; Sodium Level 139 mmol/L (136-145); Thyroid Stim Hormone (TSH) 1.64 uIU/mL (0.358-3.74); Triglycerides 85 mg/dL; Very Low Density Lipoprotein 17 mg/dL (5-40)
--- NOTE | 2017-12-17 11:10 | PCM.HP.BLA ---
History and Physical DATE OF SURGERY: 12/30/2017 SCHEDULED PROCEDURE: Left Total Knee Arthroplasty HISTORY OF PRESENT ILLNESS: This is a 62-year-old female who is been having ongoing pain in the left knee for several years duration. Patient states her pain as being constant, aching, stabbing, and sore. She has increased pain going up and down stairs and walking any amount of distance. She has difficult time with activities of daily living including bathing/showering, housework, shopping, leisure activities, and going to the barn. She has difficult time and feels unsafe with going up and down stairs and at the barn. Patient has tried conservative measures consisting of rest, elevation, and previous cortisone injections with minimal relief. Her pain is over the medial joint line. She has difficult time sleeping due to the pain. Patient has start up pain. She has also been through formal physical therapy and home exercises with minimal relief. 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 Patient has tried oral medications with no relief in symptoms. She denies previous surgery on the left knee. She has tried a brace in the past with no significant relief in symptoms. After failure of conservative measures and discussion with Dr. Roberto Nunez, the patient would like proceed with a left total knee arthroplasty. She currently denies any chest pain, shortness of breath, fevers chills, recent infections. She does have medical history pertinent for hypertension. Patient also has history of sciatica nerve problems in the past and occasionally gets numbness and tingling into left lower leg. REVIEW OF SYSTEMS: ROS: Const: Reports weight change, but denies anorexia, anxiety, change in appetite and fever,hard of hearing, and vision problems. Eyes: Reports vision loss. CV: Reports peripheral vascular disease, but denies chest pain, heart murmur and irregular heartbeat. Resp: Reports shortness of breath, but denies asthma, cough, pneumonia, sleep apnea, tuberculosis and wheezing. GI: Denies constipation, diarrhea, heartburn, nausea, bloody stools and vomiting, and difficulty swallowing. : Denies incontinence. Musculo: Denies leg swelling, trouble walking and weakness and limp. Skin: Denies Raynaud's, history of shingles and tattoo. Neuro: Reports numbness/tingling but denies ambulatory dysfunction, dizziness and tremor. Psych: Denies anxiety, depression, insomnia, mental illness and stress. [place]/Lymph: Denies anemia, bleeding/bruising tendency and past transfusion. Reviewed, no changes. PAST MEDICAL HISTORY: Advance Care Plan: No Advance Directives Effective Date: 09/17/2017 PMH: Medical Problems: Arthritis, High Blood Pressure, Hypercholesterolemia Accidents: Fracture - pelvis/ l arm Surgical Hx: Hysterectomy Anesthesia Complications: None Assistive Devices: Dentures Reviewed, no changes. 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 Personal Habits: Cigarette Use: Never.Alcohol: Denies use.Drug Use: Denies Use.Enjoy Exercising: Never Exercises. Reviewed, no changes. VITALS: Ht: 63 Wt: 232lb Wt k.235 BMI: 41.1 BP: 124/74 Pulse: 64 Resp: 16 T: 98.7 T: 37.1C ALLERGIES: No Known Drug Allergy MEDICATIONS: Jayna 1 tab PO daily, Vitamin D 1 tab PO daily, Aspirin 325 mg 1 tab PO daily, Atenolol 25 mg 1 tab PO daily, Crestor 5 mg 1 tab PO daily, Advil 200 mg prn pain PRE-OP EXAM: General appearance:NORMAL Other: Eyes: Conjunctivae and lids: NORMAL Pupils: ERR Ears, Nose, Mouth, and Throat: NORMAL Other: Inspection of lips, teeth and gums: NORMAL Other: Neck: Examination of neck: no masses noted. Respiratory: Assessment of respiratory effort: NORMAL Other: Auscultation of lungs: clear to auscultation no wheezes, rhonchi or rales. Cardiovascular: Auscultation of heart: regular rate and rhythm, no murmurs, gallops or rubs. Exam of carotid arteries: NORMAL Other: Gastrointestinal: Exam of abdomen: soft, nontender, nondistended bowel sounds present. PHYSICAL EXAMINATION: Patient walks with a limping gait. Left knee is cool to touch without erythema. She has tenderness to palpation over the medial joint line. Range of motion of the left knee lacks 10 of extension to 90 of flexion. Varus alignment. Patient is unstable with varus and valgus stress test. Sensation intact to light touch. Neurovascularly intact. IMAGING STUDIES: X-rays of the left knee reveal varus alignment with medial joint space narrowing, subchondral sclerosis, and osteophyte formation consistent with severe osteoarthritis. IMPRESSION: 1. Severe left knee osteoarthritis 2. Hypertension 3. Hypercholesterolemia PLAN: Dr. Nunez did discuss and review with the patient all treatment options including surgical versus nonsurgical options. Patient does wish to proceed with the above-stated procedure. Potential risks, benefits, and complications of the procedure were discussed in detail including but not limited to , infection, nerve and blood vessel damage, persistent pain, numbness, tingling, paresthesias, blood clot, pulmonary embolism, and requirement for possible further surgery. The patient expressed full understanding and has no further questions for the doctor. Patient does agree to proceed with the above-stated procedure and has signed the surgery consent form. ___ I have re-examined the patient. There are no clinical changes since date of exam. ___ See progress notes for changes. ___ Dictated on admission Date: Time: Signature:
--- NOTE | 2017-12-24 10:50 | CASEMGMT ---
Call placed to patient to discuss d/c needs after upcoming surgery. Patient plans to return home, states she has assistance at home. Outpatient PT is set up at [facility], has assistance with transportation. Patient has a walker and a higher toilet at home. No shower seat or grab bars in bathroom. Bathroom is on 1st level of the home, plans to sleep on couch or in chair d/t bedroom being upstairs. Patient has 2 steps into home, there are no handrails near steps. Informed patient that RN-CM will follow up in hospital for any further needs. Madyson Jerome LPN Clinical Support
[2017-12-30] VITALS (13 sets, daily range): BP systolic 109–130; BP diastolic 60–83; PULSE 55–73; RESP 16–20; TEMP 36–36.7; O2SAT 91–97; BMI 41.8
--- NOTE | 2017-12-30 | KNEE_PTH ---
PATIENT: KVNG ROMERO LOC: [facility]3 U#:[id number] AGE/SX: 62/F ROOM: MS315 RE12/30/[address]: Dr. Roberto Nunez MD : [id number] BED: 1 DIS: 01/01/2018 SPEC #: [id number] RECD: 12/30/17 13:27 STATUS: DENILSON REQ #: [id number] RADHA: 12/30/17 00:[address]: Roberto Nunez DEPT: SURGICAL PATHOLOGY RECD BY: Nacho May ENTERED: 12/30/17 13:27 SP TYPE: TOTAL KNEE OTHR DR: Dr. Candida Demarco, DO Tissues: Knee, NOS Procedures: Decalcification bone/plaque Surgery Specimen Level IV HEADER OPERATION: Left total knee replacement with navigation PRE-OP DIAGNOSIS: Severe left knee osteoarthritis TISSUE SUBMITTED: Bone left knee MICROSCOPIC DIAGNOSIS Bone, left knee, total knee replacement/resection: Pieces of bone with degenerative osteoarthritic changes. SJ:kennedy 01/04/18 MICROSCOPIC DESCRIPTION Slides are reviewed. GROSS DESCRIPTION Received is one container designated bone left knee. The specimen consists of multiple fragments of winters-yellow bone measuring in aggregate 9 x 11 x 4 cm. No soft tissue is identified. A number of bony fragments contain articular surfaces consistent with tibial plateau and femoral condyle and displaying prominent osteophyte formation, eburnation and bone erosion. Director Of Integrated Marketing sections from the bone are submitted in one cassette after decalcification. / ELIZABETH:kennedy 12/30/17 TC:5 CPT: 73179, 36751
[2017-12-30] MEDS: oxyCODONE HCl Cr 10 MG Tablet PO (07:08)
[2017-12-30] MEDS: Acetaminophen 500 MG Tablet 1000 MG PO ×3 (07:09→22:29)
[2017-12-30] MEDS: Celecoxib 200 MG Capsule 400 MG PO (07:09)
[2017-12-30] MEDS: Cefazolin 2 GM in 0.9% Normal Saline 100 ML IV (07:45)
--- NOTE | 2017-12-30 07:58 | PCM.OPRPT ---
Report of Operation Date of Procedure: 12/30/17 Pre-Operative Diagnosis: Left knee primary OA Post-Operative Diagnosis: Left knee primary OA Surgery/Procedure Performed:: Left TKA Description of Surgical Findings:: Cemented stable cruciate retaining total knee replacement with good patella tracking, no bony lesions were noted signals collector/analyst: Dayton Kinney Type of Anesthesia:: Spinal Anesthesiologist: Thuan Regalado Special Medications: 2 g Ancef, 1 g TXA at incision, 1 g TXA closure, 10 mg Decadron, joint cocktail (5 mg Duramorph, 30 mL of 0.5% Ropivicaine, 1000 units of epinephrine, 30 mg of Toradol) Specimen's removed: Bony cuts were sent to pathology Estimated Blood Loss (mL): 40 Fluids Replaced: 700 ml crystalloid Description of Procedure: Implants used: 1. Phillips size 4 triathlon cruciate retaining distal femoral component 2. Heavenly size 4 universal tibial baseplate 3. Phillips X3 9 mm CS polyethylene 4. Heavenly X3 32 mm asymmetric patella Brief history operative indications: 62-year-old F with history of left knee osteoarthritis with radiographic findings with loss of joint space, osteophyte formation and subchondral sclerosis. Failed conservative measures as mentioned in the H&P. Discussion of total knee arthroplasty as well as risk and benefits were discussed the patient including but not limited to blood loss, DVTs, PEs, neurovascular damage, general risk of anesthesia including loss of life, and stiffness or instability were discussed with patient. Patient demonstrated understanding and was able to sign informed consent. Patient also had a history of red marrow disease. Multiple MRI showed no progressive lesions. We did discuss this with her previous orthopedic oncologist who recommended sending the tissue for specimen but no further workup at this time considering previous workup for the same bone lesions were negative. Procedure: On the date of procedure patient's left lower extremity was marked in the preoperative area. The patient was then taken back to the operating room where the patient was placed on the table in the supine position. All bony prominences were identified a well-padded. Anesthesia assumed control of the C-spine and airway and remained controlled throughout the remainder of the procedure. A tourniquet was placed on the left upper thigh and the leg was prepped in a sterile fashion. The surgeon then scrubbed at this time .Upon reentering the room left lower extremity was draped in a standard orthopedic fashion. A timeout was then called and everyone agreed upon the side, the site, the procedure to be performed, patient's identity and antibiotics given. Esmarch bandage was used to exsanguinate the extremity and the tourniquet was placed up to 250 mmHg with the knee in flexion. A midline skin incision was made and sharp dissection was taken down through skin subcutaneous tissue and fat. The standard medial parapatellar incision was made and the patella was subluxed laterally. The standard deep MCL release was done and the fat pad was resected. Next our attention was directed to the femur. Navigation pins were placed, navigation was registered. The distal femoral cutting block was pinned into place and 8 mm of distal femur resection was completed. The distal femoral cut was verified with navigation. The knee was then placed in deep flexion in the standard [employer] sizing guide was used to place the femoral component in 3? external rotation based on the posterior condyles. A size 4 4-in-1 cutting block was selected and pinned into place. The anterior cut was then made and checked for notching. The subsequent anterior chamfer cuts, posterior condylar cuts and posterior chamfer cuts were made while ensuring the MCL and LCL were protected. Our attention was then turned to the tibia where the navigation pins were placed, navigation was registered. [employer] tibial cutting guide was used to make the appropriate tibial cut 90 degrees from the mechanical axis. Navigation was then used to verify the cut. A size 4 tibial base plate was selected. the knee was flexed to 90 degrees and the soft tissues and posterior osteophytes were removed from the joint. 40 cc of the periarticular injection was injected into the posterior medial corner of the joint. The appropriate trials were then placed on the femur and tibia. A trial polyethylene was trialed to ensure proper balancing and stability of the knee. Patella tracking, was then verified and corrected appropriately as needed. The appropriate tibial internal rotation was then marked with a bovie. Our attention was then directed to the patella. The patella was everted and a flat resection was made. The lug holes were drilled and the patella trial was placed. Patellar tracking was checked and deemed appropriate. Once we were happy lug holes were drilled for the femur and trial components were removed. the tibia was subluxed and pinned into place and the keel was punched and the canal was reamed. Final components were verified and opened, and cement was mixed in a vacuum. Heavenly Simplex cement was used. The wound was copiously irrigated with normal saline. When the cement was ready the components were cemented into place starting with the tibia, femur and finally the patella. The trial poly component was placed and the knee was placed in full extension. All excess cement was removed in the process. Once the cement had cured the tracking, alignment and balance were verified and a size 9 mm polyethylene component was placed. Once the final components were placed the wound was copiously irrigated with normal saline solution and the periarticular injection was given. The wound was closed in a layer perez fashion using #1 vicryl interrupted sutures for the arthrotomy, 2-0 interrupted Vicryl suture for the subcuticular layer and nichelle for final skin closure. A sterile compressive dressing was then placed. The patient was then awakened from anesthesia, transferred to the [facility] and transferred to the PACU for recovery. Post op plan DVT ppx: ASA 81mg, thigh high compression stockings Follow up: in office in 2 weeks for wound check PT: to start POD #0 at hospital, outpatient PT should be arranged. Grafts/Implants Used: Heavenly triathlon total knee replaced - Complications none - Admit VTE Documentation VTE Present on Admission: No VTE Mechan Device Prophylaxis: SCD's, Thigh High DEB Hose VTE Pharm Prophylaxis ordered?: Yes
--- NOTE | 2017-12-30 10:00 | RAD_ITS ---
STUDY: X-RAY - LEFT KNEE REASON FOR EXAM: Postop. TECHNIQUE: 2 view(s) of the knee. COMPARISON: None. FINDINGS: There is a left total knee arthroplasty without evidence of complication. There are overlying skin nichelle and postoperative gas in the soft tissues. RAD/Knee 1 or 2 Views IMPRESSION: Uncomplicated left total knee arthroplasty. Electronically Signed: Agus Swan MD at 13:09 EDT Tel , Service support ,
[2017-12-30] MEDS: Scopolamine 1mg/72hr Patch 1 PATCH TD (11:14)
[2017-12-30] MEDS: Lactated Ringers 1,000 ML 999 ML IV (11:14)
[2017-12-30] MEDS: Famotidine 20 MG Tablet PO (13:55)
[2017-12-30] MEDS: Senna/Docusate Sodium 1 Tablet 2 TABLET PO ×2 (13:56→22:29)
[2017-12-30] MEDS: Ondansetron 4 MG/2 ML Vial IV (15:05)
[2017-12-30] MEDS: 0.9% NaCl Peripheral Flush Adult/Peds IV ×2 (15:05→22:30)
[2017-12-30] MEDS: Cefazolin 1 GM/50 ML BAG IV (15:51)
[2017-12-30] MEDS: Ketorolac 15 MG/ML Vial IV (17:43)
[2017-12-30] MEDS: proMETHazine 25 MG/ML Syringe 12.5 MG IM (17:43)
[2017-12-30] MEDS: Lactated Ringers 1,000 ML 125 ML IV (17:44)
[2017-12-30] MEDS: Aspirin 81 MG TAB.CHEW PO (17:51)
[2017-12-30] MEDS: Morphine 2 MG/ML Syringe IV (22:29)
[2017-12-30] MEDS: Atorvastatin Calcium 10 MG Tablet PO (22:29)
[2017-12-31] MEDS: Cefazolin 1 GM/50 ML BAG IV (00:12)
[2017-12-31] MEDS: Lactated Ringers 1,000 ML 125 ML IV (00:13)
[2017-12-31] MEDS: Morphine 2 MG/ML Syringe IV (02:40)
[2017-12-31] MEDS: 0.9% NaCl Peripheral Flush Adult/Peds IV ×3 (02:40→09:26)
[2017-12-31 04:40] VITALS: BP 123/80; PULSE 60; RESP 16; TEMP 36.6; O2SAT 95
[2017-12-31] MEDS: Acetaminophen 500 MG Tablet 1000 MG PO (05:41)
[2017-12-31] MEDS: oxyCODONE 5 MG Tablet PO (05:43)
[2017-12-31] MEDS: Ondansetron 4 MG/2 ML Vial IV (06:21)
[2017-12-31 06:46] LABS: Hematocrit 41.7 % (37-47); Mean Corp Hgb Conc 33.6 g/gl (32-36); Mean Corpuscular Hgb 28.1 pg (27.0-32.0); Mean Corpuscular Volume 83.6 fL (81-99); Mean Platelet Vol. 9.7 fl (6.2-12.0); Platelet Count 267 K/mm3 (150-450); RBC Distribution Width CV 13.3 % (11.6-14.6); RBC Distribution Width SD 40.3 fl (35.1-43.9); Red Blood Count 4.99 M/mm3 (4.2-5.4); White Blood Count 10.1 K/mm3 (4.4-11.0)
[2017-12-31 06:49] LABS: Scan Indicated on CBC? Y/N NO
[2017-12-31 07:01] LABS: Anion Gap 11 (5-15); BUN 17 mg/dL (7-18); BUN/Creat Ratio 22.4 RATIO (10-20); Calcium,Total 8.7 mg/dL (8.5-10.1); Chloride 107 mmol/L (98-107); Creatinine, Serum 0.76 mg/dL (0.55-1.02); EST Glomerular Filtration Rate 82 mL/min (>60); Est Glom Filt Rate - Afr Amer 100 mL/min (>60); Glucose 133 mg/dL (74-106); Potassium 3.7 mmol/L (3.5-5.1); Sodium Level 141 mmol/L (136-145)
[2017-12-31 07:30] VITALS: RESP 16; O2SAT 96
[2017-12-31 07:31] VITALS: PULSE 80
[2017-12-31] MEDS: Aspirin 81 MG TAB.CHEW PO ×2 (07:34→16:37)
--- NOTE | 2017-12-31 08:56 | PN.ORTHO_ITS ---
Subjective: The patient was sitting in bedside chair upon examination. Patient denies any chest pain, shortness of breath, dizziness, lightheadedness, nausea or vomiting, or calf pain. Patient did have nausea yesterday. She states she also had increased nausea and sick to her stomach from the oxycodone this morning. She states she has had a similar episode with this medication in the past. She has taken [place] in the past and tolerated it much better. No adverse overnight events. [ ]. Objective: Vital signs stable and afebrile. Patient is able to plantarflex and dorsiflex actively. Sensation is intact to light touch to saphenous, sural, superficial and deep peroneal, and tibial distribution. Dressing is with minimal drainage Negative Homans bilaterally, negative signs and symptoms of DVT. - Physical Exam General: Alert, Oriented x3, Cooperative, No apparent distress Vital Signs Temp Pulse Resp BP Pulse Ox 97.9 F 80 16 123/80 H 96 12/31/17 04:40 12/31/17 07:31 12/31/17 07:30 12/31/17 04:40 12/31/17 07:30 Oxygen Flow Rate (L/min) 2 Oxygen Delivery Method Room Air Weight: 107 kg Body Mass Index (BMI) 41.8 Intake and Output for Last 24 Hours 12/29/17 12/30/17 12/31/17 23:59 23:59 23:59 Intake Total 1500 / 1500 2303 / 2303 Output Total 800 / 800 900 / 900 Balance 700 / 700 1403 / 1403 Laboratory Tests Past 24 Hrs 12/31/17 12/31/17 06:18 06:18 WBC 10.1 RBC 4.99 Hgb 14.0 Hct 41.7 MCV 83.6 MCH 28.1 MCHC 33.6 RDW 13.3 RDW Differential 40.3 Plt Count 267 MPV 9.7 Sodium 141 Potassium 3.7 Chloride 107 Carbon Dioxide 23.0 Anion Gap 11 BUN 17 Creatinine 0.76 Estim Creat Clear Calc 64.30 Est GFR (MDRD) Af Amer 100 Est GFR (MDRD) Non-Af 82 BUN/Creatinine Ratio 22.4 H Glucose 133 H Calcium 8.7 Medical Necessity - Tobacco Use Smoking Status: Current every day smoker Tobacco Use: Non-smoker Assessment/Plan 1. S/P left total knee arthroplasty POD #1 2. Continue Pain Medications: Tylenol and OxyIR has been stopped. [place] was placed for pain control. If [place] does not control her pain we will add MS Contin 15 mg twice daily. 3. DVT Prophylaxis: Aspirin 81 mg twice daily times 4 weeks 4. PT/OT: Weightbearing as tolerated 5. H & H: 14.0/41.7, asymptomatic 6. Encouraged Incentive Spirometry 7. Disposition: Plan will be for possible discharge home tomorrow if pain is controlled and tolerates physical therapy.
[2017-12-31 09:22] VITALS: BP 160/90; PULSE 96; RESP 18; TEMP 36.6; O2SAT 94
[2017-12-31] MEDS: Senna/Docusate Sodium 1 Tablet 2 TABLET PO ×2 (09:26→20:50)
[2017-12-31] MEDS: Atenolol 25 MG Tablet PO (09:26)
[2017-12-31] MEDS: Meloxicam 7.5 MG Tablet PO ×2 (09:26→20:50)
[2017-12-31] MEDS: Losartan Potassium 100 MG Tablet PO (09:26)
[2017-12-31] MEDS: Famotidine 20 MG Tablet PO (09:27)
[2017-12-31] MEDS: amLODIPine 10 MG Tablet PO (09:27)
--- NOTE | 2017-12-31 09:33 | DCINST_ITS ---
Discharge Diet: No Restrictions Discharge Activity: May Not Drive May shower in (days): 1 - Turned dressing away from water Ice area for (Minutes): 20 - every hour while awake. Weight Bearing Status: Weight bearing as tolerated Elevate: Operative Extremity Additional Activity Instructions:: Wear elastic stockings for 2 weeks after your surgery. Call your doctor if your incision/area has: Continuous Slow Oozing, Sudden Increased Bleeding, Increased Pain/ Swelling, Increased Redness, Foul Smelling Discharge Call your doctor if you observe: Fever of 101 or Higher, Coldness, Increased Pain, Numbness or Tingling, Change in Color, Calf discomfort, Uncontrolled pain Remove Dressing in (days):: 3 - Okay to remove dressing on January 04, 2018 Additional Instructions: Follow [facility] postop instructions Allergies/Adverse Reactions: Allergies No Known Allergies Allergy (Verified 12/30/17 06:45) Medications to take at Discharge Atenolol 25 mg PO DAILY 02/08/16 Amlodipine Bes/Olmesartan Med [Jayna 10-40 MG Tablet] 1 udtab PO DAILY 12/16/17 Rosuvastatin Calcium [Crestor] 5 mg PO DAILY 12/16/17 Aspirin [Aspirin, Baby] 81 mg PO BIDCM #60 tab.chew 01/01/18 Famotidine [Pepcid] 20 mg PO DAILY #30 tablet 01/01/18 Hydrocodone Bitart/Apap 5-325 [[place] 5/325] 1 tab PO Q6H PRN PRN 7 Days #56 tablet 01/01/18 Meloxicam [Mobic] 7.5 mg PO BID #30 tablet 01/01/18 Senna/Docusate Sodium [Senokot-S] 2 tablet PO BID #20 tablet 01/01/18 morphine SR tablet [Ms Contin] 15 mg PO BID 4 Days #8 tablet 01/01/18 The following prescriptions were given: Hydrocodone Bitart/Apap 5-325 [[place] 5/325] 1 tab PO Q6H PRN PRN 7 Days #56 tablet PRN Reason: Mod-Severe Pain (-12/30) Famotidine [Pepcid] 20 mg PO DAILY #30 tablet Aspirin [Aspirin, Baby] 81 mg PO BIDCM #60 tab.chew Meloxicam [Mobic] 7.5 mg PO BID #30 tablet morphine SR tablet [Ms Contin] 15 mg PO BID 4 Days #8 tablet Senna/Docusate Sodium [Senokot-S] 2 tablet PO BID #20 tablet Primary Care Physician: Candida Demarco DO [Primary Care Provider] - Test Results: Test results from this visit will be discussed in further detail at your follow- up appointment, if applicable. Please Follow Up With: Physical therapy When: 01/04/18 @ 8:00 am Please Follow Up With: Jose Tong PA-C When: 01/13/18 @ 8:30 am
--- NOTE | 2017-12-31 11:40 | CASEMGMT ---
GOLDIE MINA Face to Face with patient for initial transition planning/care coordination assessment. RN KEELEY introduced self and role at [facility]. Patient lying in bed, alert and oriented. Patient willing to participate in assessment and is able to answer all questions appropriately. Care providers, pharmacy, and demographics verified. Lives with in two story house with bed and bath on 1st floor. Patient has walker and raised toilet. Patient wishes to discharge home and is setup with outpatient therapy at [facility] and family providing transportation. Patient states she has no further needs or concerns at this time. CM to follow for discharge planning needs that may arise. Disposition Plan: Patient to discharge home with outpatient therapy, family support, and follow-up plans in place. Vita ESETVEZ, RN, CM
[2017-12-31] MEDS: HYDROcodone Bitartrate/Apap 5/325 Tablet PO ×2 (11:51→20:50)
--- NOTE | 2017-12-31 15:11 | NURSING ---
Christophe LIMA paged at [phone], no reply paged again at [phone], no reply, Dr Nunez paged at [phone] waiting to hear from him.
[2017-12-31] MEDS: morphine SR 15 MG Tablet PO (16:37)
[2017-12-31] MEDS: Atorvastatin Calcium 10 MG Tablet PO (20:50)
[2017-12-31 20:57] VITALS: BP 183/93; PULSE 86; RESP 18; TEMP 37.1; O2SAT 94
[2017-12-31 22:22] VITALS: BP 154/78; PULSE 74
[2018-01-01] MEDS: HYDROcodone Bitartrate/Apap 5/325 Tablet PO ×2 (01:51→08:41)
[2018-01-01 02:55] VITALS: BP 158/95; PULSE 86; RESP 18; TEMP 36.9; O2SAT 96
[2018-01-01] MEDS: morphine SR 15 MG Tablet PO (04:24)
--- NOTE | 2018-01-01 06:38 | PCM.PN.ORT ---
Subjective: The patient was sitting in bed upon examination. Patient denies any chest pain, shortness of breath, dizziness, lightheadedness, nausea or vomiting, or calf pain. Pain is controlled on medications. No adverse overnight events. Patient is doing much better today with the change of medications. Patient is ready for discharge home. Objective: Vital signs stable and afebrile. Patient is able to plantarflex and dorsiflex actively. Sensation is intact to light touch to saphenous, sural, superficial and deep peroneal, and tibial distribution. Dressing is with minimal discharge that is been stable Negative Homans bilaterally, negative signs and symptoms of DVT. - Physical Exam General: Alert, Oriented x3, Cooperative, No apparent distress Vital Signs Temp Pulse Resp BP Pulse Ox 98.4 F 86 18 158/95 H 96 01/01/18 02:55 01/01/18 02:55 01/01/18 02:55 01/01/18 02:55 01/01/18 02:55 Oxygen Flow Rate (L/min) 2 Oxygen Delivery Method Room Air Weight: 107 kg Body Mass Index (BMI) 41.8 Intake and Output for Last 24 Hours 12/30/17 12/31/17 01/01/18 23:59 23:59 23:59 Intake Total 1500 / 1500 3053 / 3053 Output Total 800 / 800 1650 / 1650 Balance 700 / 700 1403 / 1403 Laboratory Tests Past 24 Hrs 12/31/17 12/31/17 01/01/18 06:18 06:18 05:50 WBC 10.1 Pending RBC 4.99 Pending Hgb 14.0 Pending Hct 41.7 Pending MCV 83.6 Pending MCH 28.1 Pending MCHC 33.6 Pending RDW 13.3 Pending RDW Differential 40.3 Pending Plt Count 267 Pending MPV 9.7 Sodium 141 Potassium 3.7 Chloride 107 Carbon Dioxide 23.0 Anion Gap 11 BUN 17 Creatinine 0.76 Estim Creat Clear Calc 64.30 Est GFR (MDRD) Af Amer 100 Est GFR (MDRD) Non-Af 82 BUN/Creatinine Ratio 22.4 H Glucose 133 H Calcium 8.7 Medical Necessity - Tobacco Use Smoking Status: Current every day smoker Tobacco Use: Non-smoker Assessment/Plan 1. S/P left total knee arthroplasty POD #2 2. Continue Pain Medications: [place] and MS Contin 3. DVT Prophylaxis: Aspirin 81 mg twice daily times 4 weeks 4. PT/OT: Weightbearing as tolerated 5. H & H: Labs are currently pending, asymptomatic 6. Encouraged Incentive Spirometry 7. Disposition: Plan is for discharge home today. Patient will perform physical therapy outpatient. Prescriptions will be E scribed to [facility]. Patient will follow-up per postop instructions.
[2018-01-01 06:41] LABS: Hematocrit 39.8 % (37-47); Hemoglobin 13.3 g/dl (12.0-15.0); Mean Corp Hgb Conc 33.4 g/gl (32-36); Mean Corpuscular Hgb 27.9 pg (27.0-32.0); Mean Corpuscular Volume 83.6 fL (81-99); Mean Platelet Vol. 9.6 fl (6.2-12.0); Platelet Count 213 K/mm3 (150-450); RBC Distribution Width CV 13.3 % (11.6-14.6); RBC Distribution Width SD 40.4 fl (35.1-43.9); Red Blood Count 4.76 M/mm3 (4.2-5.4); White Blood Count 9.2 K/mm3 (4.4-11.0)
[2018-01-01 06:42] LABS: Scan Indicated on CBC? Y/N NO
[2018-01-01] MEDS: Atenolol 25 MG Tablet PO (08:43)
[2018-01-01] MEDS: amLODIPine 10 MG Tablet PO (08:44)
[2018-01-01] MEDS: Meloxicam 7.5 MG Tablet PO (08:44)
[2018-01-01] MEDS: Losartan Potassium 100 MG Tablet PO (08:44)
[2018-01-01] MEDS: Famotidine 20 MG Tablet PO (08:44)
[2018-01-01] MEDS: Aspirin 81 MG TAB.CHEW PO (08:44)
[2018-01-01] MEDS: Senna/Docusate Sodium 1 Tablet 2 TABLET PO (08:45)
[2018-01-01] MEDS: 0.9% NaCl Peripheral Flush Adult/Peds IV (08:47)
[2018-01-01] MEDS: Ondansetron 4 MG/2 ML Vial IV (08:47)
[2018-01-01 08:59] VITALS: BP 164/104; PULSE 92; RESP 18; TEMP 36.4; O2SAT 99
[2018-01-01 12:18] VITALS: BP 152/100; PULSE 79; RESP 18; TEMP 36.6; O2SAT 96
== END 2018-01-01 12:46 | disposition home or self-care (01) | DRG 470 ==
LOC: ACINP 05:52 → MS3 08:27
PROVIDERS: Admitting Provider Specialist; Family Provider Internal Medicine; PCP Internal Medicine; Visit Provider Specialist
PROC: 0SRD0J9 Replacement of Left Knee Joint with Synthetic Substitute, Cemented, Open Approach (ICD-10-PCS; CPT 27447; principal; 2017-12-30 07:30)
DX: M17.12 Unilateral primary osteoarthritis, left knee (principal); I10 Essential (primary) hypertension; E78.00 Pure hypercholesterolemia, unspecified; Z79.82 Long term (current) use of aspirin; F17.200 Nicotine dependence, unspecified, uncomplicated
CPT/HCPCS: 36415; 73560; 80048; 80053; 80061; 82043; 82248; 82306; 82570; 82607; 83036; 84443; 85025; 85027; 85610; 85730; 87081; 88305; 88311; 97110; 97162; 97165; 97530; 99251; C1776; J7120; A4216; G0463; J2405

== ENCOUNTER 2018-01-03 20:19 | Emergency (ER) | payer BC, SELFPAY ==
[2018-01-03 20:19] VITALS: BP 143/74; PULSE 95; RESP 18; TEMP 36.7; O2SAT 94; BMI 41.4
--- NOTE | 2018-01-03 21:43 | RAD_ITS ---
STUDY: X-RAY - RIGHT KNEE REASON FOR EXAM: Female, 62 years old. PAIN SWELLING TECHNIQUE: 3 view(s) of the knee. COMPARISON: None. FINDINGS: Normal visualized distal femur. Normal visualized proximal tibia and fibula. Normal proximal tibiofibular articulation. There is mild degenerative arthrosis of the medial femorotibial compartment. Normal lateral femorotibial compartment. There is mild degenerative arthrosis of the patellofemoral articulation. There is no demonstrated joint effusion. The soft tissue structures are unremarkable. RAD/Knee 3 Views IMPRESSION: There is mild degenerative arthrosis of the medial femorotibial compartment. There is mild degenerative arthrosis of the patellofemoral articulation. Electronically Signed: Huy Lew MD at 22:56 EDT , Service support ,
[2018-01-03] MEDS: Cefazolin 1 GM/50 ML BAG IV (22:29)
[2018-01-03 22:35] LABS: Absolute Neutrophil Count 5.2 X10^3/uL (2.0-7.7); Basophil# 0.01 X10^3/uL; Basophil% 0.1 % (0-1); Eosinophil# 0.23 X10^3/uL; Hematocrit 38.5 % (37-47); Hemoglobin 12.5 g/dl (12.0-15.0); Lymphocyte % 21.8 % (19-41); Mean Corp Hgb Conc 32.5 g/gl (32-36); Mean Corpuscular Hgb 27.3 pg (27.0-32.0); Mean Corpuscular Volume 84.1 fL (81-99); Mean Platelet Vol. 9.3 fl (6.2-12.0); Monocyte# 0.61 X10^3/uL; Monocyte% 7.8 % (0-10); Neutrophil # 5.23 X10^3/uL (2.7-7.7); Neutrophil % 67.2 % (47-70); POSITIVE COUNT NO; POSITIVE DIFFERENTIAL NO; POSITIVE MORPHOLOGY NO; Platelet Count 254 K/mm3 (150-450); RBC Distribution Width CV 13.2 % (11.6-14.6); RBC Distribution Width SD 40.1 fl (35.1-43.9); Red Blood Count 4.58 M/mm3 (4.2-5.4); White Blood Count 7.8 K/mm3 (4.4-11.0)
[2018-01-03 22:45] LABS: Anion Gap 4 (5-15); BUN 24 mg/dL (7-18); BUN/Creat Ratio 34.8 RATIO (10-20); Calcium,Total 8.5 mg/dL (8.5-10.1); Chloride 104 mmol/L (98-107); Creatinine, Serum 0.69 mg/dL (0.55-1.02); EST Glomerular Filtration Rate 92 mL/min (>60); Est Glom Filt Rate - Afr Amer 111 mL/min (>60); Estimated Creatinine Clearance 70.83 ml/min; Glucose 109 mg/dL (74-106); Potassium 4.2 mmol/L (3.5-5.1); Sodium Level 138 mmol/L (136-145)
--- NOTE | 2018-01-03 22:45 | RAD_ITS ---
STUDY: X-RAY - LEFT KNEE REASON FOR EXAM: Female, 62 years old. Pain and swelling. Recent knee replacement. TECHNIQUE: 3 view(s) of the knee. COMPARISON: 12/30/2017. FINDINGS: Normal visualized distal femur. Normal visualized proximal tibia and fibula. Normal proximal tibiofibular articulation. The patient is status post total knee replacement. Hardware appears to be intact.There is a soft tissue prominence in the suprapatellar region suggesting a small volume joint effusion. There are anterior skin nichelle, anterior soft tissue swelling, and minimal anterior soft tissue emphysema, consistent with history of recent surgery. RAD/Knee 3 Views IMPRESSION: Intact knee prosthesis. Small joint effusion. Electronically Signed: Bang Epperson MD at 0:10 EDT , Service support ,
[2018-01-03 23:19] VITALS: BP 124/77; PULSE 77; RESP 14; O2SAT 94
--- NOTE | 2018-01-04 00:40 | ED.VISSUMM ---
- ER Visit Summary Date of Service: 01/04/18 Chief Complaint: Left leg swelling History of Present Illness: The patient is a 62 F who presents with swelling of her left lower extremity the began today. Patient noted worsening swelling of her left leg. Patient had a recent left total knee replacement done by Dr. Nunez. Patient states that she is scheduled for physical therapy tomorrow. Patient noted increased swelling of her thigh, knee, and lower leg today. Patient also admits to some mild swelling of her right lower extremity. Patient is concerned over possible blood clot. Patient denies any prior history of DVT. Patient denies any fevers or chills. Patient denies any chest pain or shortness of breath. Physical Examination: Vital signs are stable. Patient is afebrile. Patient is in no acute distress. Oral mucosa is pink and moist. Neck is supple. There is no JVD noted. Heart was regular rate and rhythm. Lungs are clear and equal bilaterally. Skin is warm and dry. There is some mild erythema and warmth over the medial aspect of the left knee and thigh. There is no pain with short arc range of motion. There is no discharge or drainage from the incision. There is no calf tenderness. Pedal pulses are equal bilaterally. There is no motor or sensory deficit noted. The remaining physical exam is within normal limits. Test Results: X-rays of the left knee shows a small effusion but there is no disruption in the prosthesis. X-rays of the right knee also were obtained and showed mild degenerative joint changes. CBC was normal. Basic metabolic profile shows slightly elevated BUN of 24. The remaining lab was within normal limits. Emergency Department Course and Treatment: Patient was given a dose of Ancef here. Venous duplex was unable to be obtained tonight. Patient was given a dose of Lovenox here. Patient was given an order for an outpatient venous duplex to be obtained tomorrow. Case was discussed with Dr. Conner who is covering for Dr. Nunez. He agreed with the plan. Patient was instructed to contact Dr. Nunez's office tomorrow morning and update the office. Patient was given a prescription for Keflex. Patient and family understood and were agreeable with the plan. All questions were answered. Disposition: Discharge home Impression: Left leg cellulitis This note was generated with [employer] software. It may contain incorrect words, spelling, and punctuation that were not noted in review of the chart prior to signing ED Disposition - Plan for ED Patient: Disposition: Home or Assisted Living Chief Complaint: Edema Diagnosis: Cellulitis of leg, left Instructions: ED Leg Swelling Unilateral Prescriptions: Cephalexin [Keflex] 500 mg PO 4X/DAY #40 cap Referrals: Candida Demarco DO [Primary Care Provider] -
[2018-01-04] MEDS: Enoxaparin 100 MG/ML Syringe SC (00:46)
--- NOTE | 2018-01-04 00:47 | ED.DCSUM_ITS ---
- ER Visit Summary Date of Service: 01/04/18 Chief Complaint: Left leg swelling History of Present Illness: The patient is a 62 F who presents with swelling of her left lower extremity the began today. Patient noted worsening swelling of her left leg. Patient had a recent left total knee replacement done by Dr. Nunez. Patient states that she is scheduled for physical therapy tomorrow. Patient noted increased swelling of her thigh, knee, and lower leg today. Patient also admits to some mild swelling of her right lower extremity. Patient is concerned over possible blood clot. Patient denies any prior history of DVT. Patient denies any fevers or chills. Patient denies any chest pain or shortn ess of breath. Physical Examination: Vital signs are stable. Patient is afebrile. Patient is in no acute distress. Oral mucosa is pink and moist. Neck is supple. There is no JVD noted. Heart was regular rate and rhythm. Lungs are clear and equal bilaterally. Skin is warm and dry. There is some mild erythema and warmth over the medial aspect of the left knee and thigh. There is no pain with short arc range of motion. There is no discharge or drainage from the incision. There is no calf tenderness. Pedal pulses are equal bilaterally. There is no motor or sensory deficit noted. The remaining physical exam is within normal limits. Test Results: X-rays of the left knee shows a small effusion but there is no disruption in the prosthesis. X-rays of the right knee also were obtained and showed mild degenerative joint changes. CBC was normal. Basic metabolic profile shows slightly elevated BUN of 24. The remaining lab was within normal limits. Emergency Department Course and Treatment: Patient was given a dose of Ancef here. Venous duplex was unable to be obtained tonight. Patient was given a dose of Lovenox here. Patient was given an order for an outpatient venous duplex to be obtained tomorrow. Case was discussed with Dr. Conner who is covering for Dr. Nunez. He agreed with the plan. Patient was instructed to contact Dr. Nunez's office tomorrow morning and update the office. Patient was given a prescription for Keflex. Patient and family understood and were agreeab le with the plan. All questions were answered. Disposition: Discharge home Impression: Left leg cellulitis This note was generated with [employer] software. It may contain incorrect words, spelling, and punctuation that were not noted in review of the chart prior to signing ED Disposition - Plan for ED Patient: Disposition: Home or Assisted Living Chief Complaint: Edema Diagnosis: Cellulitis of leg, left Instructions: ED Leg Swelling Unilateral Prescriptions: Cephalexin [Keflex] 500 mg PO 4X/DAY #40 cap Referrals: Candida Demarco DO [Primary Care Provider] -
[2018-01-04 00:49] VITALS: BP 143/85; PULSE 82; RESP 16; O2SAT 95
[2018-01-04 01:06] VITALS: BP 143/85; PULSE 80; RESP 15
== END 2018-01-04 01:11 | disposition home or self-care (01) ==
PROVIDERS: Emergency Provider Emergency Medicine; Family Provider Internal Medicine; PCP Internal Medicine
DX: L03.116 Cellulitis of left lower limb (principal); Z96.652 Presence of left artificial knee joint; K59.00 Constipation, unspecified
CPT/HCPCS: 73562; 80048; 85025; 96365; 96372; 99285; J7030; A4216

== ENCOUNTER → 2018-01-04 13:15 | Outpatient (CLI) | payer BC, SELFPAY ==
--- NOTE | 2018-01-04 13:17 | VDLE_ITS ---
Reason For Study: Swelling LLE RIGHT LEFT CFV is compressible, spontaneous, phasic, GSV is normal. competent and demonstrates normal CFV is compressible, spontaneous, phasic, augmentation. competent, and demonstrates normal Procedure augmentation. Exam performed in department. FV is compressible, spontaneous, phasic, A preliminary report was called and/or faxed competent and demonstrates normal to Dr. Demarco. augmentation. POP V is compressible, spontaneous, phasic, competent and demonstrates normal augmentation. T/P Trunk is compressible. PTV is compressible. LT PerV is compressible. Interpretation Summary Deep veins of the left lower extremity are patent and compressible segmentally. There is no evidence of left lower extremity deep vein thrombosis. Valvular competence appears intact within the proximal deep venous system on the left . The left greater saphenous vein appears patent and compressible segmentally. Ordering Physician: Matthias Blair Referring Physician: Candida Demarco Performed By: Yudelka Concepcion, DYLON, RVT
== END ==
PROVIDERS: Family Provider Internal Medicine; PCP Internal Medicine; Visit Provider Emergency Medicine
DX: M79.89 Other specified soft tissue disorders (principal)
CPT/HCPCS: 93971

== ENCOUNTER → 2018-01-05 13:30 | Outpatient (CLI) | payer BC, SELFPAY ==
[2018-01-05 14:37] LABS: Absolute Lymphocyte Count 2.08 X10^3/ul (0.83-4.51); Basophil# 0.03 X10^3/uL; Basophil% 0.5 % (0-1); Eosinophil# 0.19 X10^3/uL; Eosinophils% 2.9 % (0-5); Hematocrit 39.3 % (37-47); Hemoglobin 12.9 g/dl (12.0-15.0); Lymphocyte # 2.08 X10^3/ul (4.0); Lymphocyte % 31.4 % (19-41); Mean Corp Hgb Conc 32.8 g/gl (32-36); Mean Corpuscular Hgb 27.5 pg (27.0-32.0); Mean Corpuscular Volume 83.8 fL (81-99); Mean Platelet Vol. 9.4 fl (6.2-12.0); Monocyte# 0.35 X10^3/uL; Monocyte% 5.3 % (0-10); Neutrophil # 3.98 X10^3/uL (2.7-7.7); Neutrophil % 59.9 % (47-70); Platelet Count 298 K/mm3 (150-450); RBC Distribution Width CV 13.2 % (11.6-14.6); RBC Distribution Width SD 39.8 fl (35.1-43.9); Red Blood Count 4.69 M/mm3 (4.2-5.4); White Blood Count 6.6 K/mm3 (4.4-11.0)
[2018-01-05 14:40] LABS: Erythrocyte Sedimentation Rate 54 mm/hr (0-30); POSITIVE COUNT NO; POSITIVE DIFFERENTIAL NO; POSITIVE MORPHOLOGY NO
== END ==
PROVIDERS: Family Provider Internal Medicine; PCP Internal Medicine; Referring Provider Specialist; Visit Provider Specialist
DX: Z47.1 Aftercare following joint replacement surgery (principal)
CPT/HCPCS: 36415; 85025; 85652; 86140

== ENCOUNTER 2018-03-21 03:03 | Emergency (ER) | payer BC, SELFPAY ==
[2018-03-21 03:03] VITALS: BP 204/113; PULSE 74; RESP 20; TEMP 36.7; O2SAT 99; BMI 42.6
[2018-03-21 03:06] VITALS: RESP 20
--- NOTE | 2018-03-21 03:17 | CT_ITS ---
HISTORY: SEVERE RT FLANK PAIN THIS AM,NAUSEA,ELEVATED BP,SIMILAR EPISODE 1 WEEK AGOHX:HTN,TOTAL HYSTERECTOMY TECHNIQUE: Helically acquired images were obtained of the abdomen and pelvis without oral or IV contrast as per renal stone protocol. A radiation dose optimization technique was used for this scan. IV Contrast dosage and agent: None. Oral contrast: None. COMPARISON: None FINDINGS: Lower thorax: No pleural effusion. The posterior segment of the right hepatic lobe shows a 0.8 cm hypodensity in keeping with a small cyst or possibly hemangioma. No biliary dilatation. Borderline hepatomegaly. Negative gallbladder. The spleen and pancreas show no CT abnormality. Both kidneys are normal in position. No renal or ureteral calculi and no hydronephrosis or hydroureter. Possible small parapelvic cyst at the lower pole of the right kidney. The adrenal glands are not enlarged. Abdominal aorta is normal in caliber. No ascites or retroperitoneal lymphadenopathy. GI tract: Diverticulosis coli. Normal appendix. No pericolonic inflammatory changes. Pelvis: Hysterectomy. The pelvis shows no free fluid or lymphadenopathy. Urinary bladder appears negative. Bones: No acute osseous abnormality. CT/Abdomen/Pelvis without Cont IMPRESSION: 1. Diverticulosis coli. No acute disease seen. 2. No urolithiasis or hydronephrosis. 3. Incidental findings, as above Individualized dose optimization techniques were used for this CT. at 0500 Reported and signed by: Edgar Hatch MD Electronically Signed: Edgar Hatch, at 4:59 EST Tel , Service support ,
--- NOTE | 2018-03-21 03:17 | ED.VISSUMM ---
- ER Visit Summary Date of Service: 03/21/18 Chief Complaint: [] Right flank pain History of Present Illness: The patient is a 62 F complaining of right flank pain since last week. It went away last week and then came back a few days ago. It was tolerable but then became intolerable this evening. The pain waxes and wanes. It is a sharp stabbing pain in her right flank. She feels in her low back as well. Current severity is moderate. Maximum severity is moderate. Worsened by nothing. Relieved by nothing. She tried Tylenol this evening with minimal relief. She had some mild nausea without vomiting. No diarrhea. No urinary symptoms. No blood in her urine. She is never had this before. No recent illness. ROS General: Denies fever, chills, sweats Eyes: Denies visual changes, blurred vision, double vision ENT: Denies ear pain, rhinorrhea, sore throat Cardiovascular: Denies chest pain, palpitations, heart racing Respiratory: Denies dyspnea, cough, sputum, dyspnea on exertion, orthopnea,PND GI: Denies abdominal pain, nausea, vomiting, diarrhea, constipation, melena : Denies dysuria, hematuria, frequency Musculoskeletal: Denies myalgias, arthralgias, neck pain, positive right flank and back pain lower Skin: Denies rash, abscess, abrasions Neuro: Denies headache, weakness, paresthesia Psych: Denies depression, anxiety Endo: Denies polyuria, polydipsia, polyphagia Heme: Denies easy bruising, easy bleeding, lymphadenopathy Allergy: Denies hives, swelling Physical Examination: [] Vital signs reviewed General: Well-nourished well-developed Head: Normocephalic atraumatic Eyes: Pupils equal round and reactive to light extraocular movements intact ENT: TMs clear no hemotympanum no trauma Neck: Nontender full range of motion Cardiovascular: Regular rate rhythm no murmurs normal S1-S2 Respiratory: No distress clear to auscultation bilaterally chest nontender Abdomen: Soft nontender nondistended normal bowel sounds no masses Back: Nontender no CVA tenderness Extremities: Nontender active range of motion ?4 extremities no trauma Skin: Normal color no trauma Neuro alert oriented cranial nerves II through XII intact normal strength sensation reflexes Test Results: [] Emergency Department Course and Treatment: [] Patient given IV fluids, Zofran, Toradol, morphine. Lab work and CT abdomen pelvis obtained. Lab work shows a white count of 13.9. Hemoglobin 15.7. Chemistries show glucose 128 BUN 23 liver function tests show AST of 13. Urinalysis shows nothing acute. CT abdomen pelvis shows a liver hemangioma which the patient stated is chronic for her. No other acute abnormalities noted. Her gallbladder appears normal. No evidence of kidney stones. Her aorta shows no AAA. Her appendix is normal. Reevaluation after 2 doses of pain medicine she is resting comfortably. I do not have a cause for her pain. This could be musculoskeletal. This could be shingles type pain. The patient will be given Percocet for home as well as Zofran and will follow-up as an outpatient return if she worsens. Treatment Plan: [] Disposition: [] Impression: [] Right flank pain This note was generated with [employer] dictation software. It may contain incorrect words, spelling, and punctuation that were not noted in review of the chart prior to signing ED Disposition - Plan for ED Patient: Chief Complaint: Flank Pain Referrals: Candida Demarco DO [Primary Care Provider] -
[2018-03-21] MEDS: Ondansetron 4 MG/2 ML Vial IV (03:36)
[2018-03-21] MEDS: 0.9% Normal Saline 1,000 ML 250 ML IV (03:36)
[2018-03-21] MEDS: Morphine 4 MG/ML Syringe IV ×2 (03:38→04:29)
[2018-03-21] MEDS: Ketorolac 30 MG/ML Syringe IV (03:41)
[2018-03-21 04:08] LABS: Absolute Lymphocyte Count 2.17 X10^3/ul (0.83-4.51); Absolute Neutrophil Count 10.8 X10^3/uL (2.0-7.7); Basophil# 0.04 X10^3/uL; Basophil% 0.3 % (0-1); Eosinophil# 0.02 X10^3/uL; Eosinophils% 0.1 % (0-5); Hemoglobin 15.7 g/dl (12.0-15.0); Lymphocyte # 2.17 X10^3/ul (4.0); Lymphocyte % 15.7 % (19-41); Mean Corp Hgb Conc 34.1 g/gl (32-36); Mean Corpuscular Hgb 27.7 pg (27.0-32.0); Mean Corpuscular Volume 81.3 fL (81-99); Monocyte# 0.82 X10^3/uL; Monocyte% 5.9 % (0-10); Neutrophil # 10.76 X10^3/uL (2.7-7.7); Neutrophil % 77.7 % (47-70); Platelet Count 313 K/mm3 (150-450); RBC Distribution Width CV 13.9 % (11.6-14.6); Red Blood Count 5.66 M/mm3 (4.2-5.4); White Blood Count 13.9 K/mm3 (4.4-11.0)
[2018-03-21 04:10] LABS: POSITIVE COUNT NO; POSITIVE DIFFERENTIAL NO; POSITIVE MORPHOLOGY NO
[2018-03-21 04:19] LABS: AST(SGOT) 13 U/L (15-37); Alanine Aminotransfer ALT/SGPT 23 U/L (13-56); Alkaline Phosphatase 95 U/L (45-117); Anion Gap 12 (5-15); BUN 23 mg/dL (7-18); BUN/Creat Ratio 25.8 RATIO (10-20); Bilirubin, Direct 0.11 mg/dL (0.00-0.30); Calcium,Total 9.2 mg/dL (8.5-10.1); Chloride 105 mmol/L (98-107); Creatinine, Serum 0.89 mg/dL (0.55-1.02); EST Glomerular Filtration Rate 68 mL/min (>60); Est Glom Filt Rate - Afr Amer 83 mL/min (>60); Estimated Creatinine Clearance 54.91 ml/min; Globulin 3.3 g/dL (2.2-4.2); Glucose 128 mg/dL (74-106); Potassium 3.6 mmol/L (3.5-5.1); Protein, Total 7.3 g/dL (6.4-8.2); Sodium Level 139 mmol/L (136-145)
[2018-03-21 05:04] LABS: Bacteria 0 SEEN /hpf (None Seen); Mucous, Urine 0 SEEN /hpf (<or=2+); Red Blood Cells-Urine 0 SEEN /hpf (0-5)
[2018-03-21 05:05] LABS: Color, Urine Yellow (Yellow); Glucose, Dipstick Normal (Normal); Ketone-Dipstick Negative (Negative); Leukocyte Esterase-Dipstick Negative /ul (Negative); Nitrite-Dipstick Negative (Negative); Occult Blood-Urine 10 /ul (Negative); Protein-Dipstick Negative (Negative); Specific Gravity, Urine 1.015 (1.002-1.030); Urine Bilirubin Dipstick Negative (Negative); Urine Clarity Clear (Clear); Urine Urobilinogen Normal (Normal); Urine pH 6.5 (5.0 - 8.0)
[2018-03-21 05:10] VITALS: BP 160/91; PULSE 63; RESP 16; TEMP 36.8; O2SAT 97
[2018-03-21 05:15] LABS: Squamous Epithelial Cells - UA 0-5 SEEN /hpf (5-10); White Blood Cells 0-5 SEEN /hpf (0-5)
--- NOTE | 2018-03-21 05:46 | ED.DEP ---
ED Disposition - Plan for ED Patient: Disposition: Home or Assisted Living Chief Complaint: Flank Pain Instructions: ED Flank Pain Uncertain Cause Prescriptions: Hydrocodone Bitart/Apap 5-325 [[place] 5MG-325MG] 1 - 2 tab PO Q6H PRN PRN 3 Days #15 tab PRN Reason: Pain Ondansetron [Zofran Odt] 4 mg PO Q8H PRN PRN #10 tab PRN Reason: Nausea Referrals: Candida Demarco DO [Primary Care Provider] -
[2018-03-21 06:08] VITALS: BP 154/113; PULSE 66; RESP 16; O2SAT 98
== END 2018-03-21 06:12 | disposition home or self-care (01) ==
PROVIDERS: Emergency Provider Emergency Medicine; Family Provider Internal Medicine; PCP Internal Medicine
DX: R10.9 Unspecified abdominal pain (principal); I10 Essential (primary) hypertension; E78.00 Pure hypercholesterolemia, unspecified; D18.09 Hemangioma of other sites
CPT/HCPCS: 36415; 74176; 80048; 80076; 81001; 85025; 96361; 96374; 96375; 96376; 99285; J7030; A4216; J2405

== ENCOUNTER → 2018-03-26 06:14 | Outpatient (CLI) | payer BC, SELFPAY ==
[2018-03-21 03:03] VITALS: BMI 42.6
[2018-03-26 07:53] LABS: Absolute Lymphocyte Count 2.64 X10^3/ul (0.83-4.51); Absolute Neutrophil Count 7.4 X10^3/uL (2.0-7.7); Basophil# 0.05 X10^3/uL; Basophil% 0.5 % (0-1); Eosinophil# 0.12 X10^3/uL; Eosinophils% 1.1 % (0-5); Hematocrit 46.3 % (37-47); Hemoglobin 15.2 g/dl (12.0-15.0); Lymphocyte # 2.64 X10^3/ul (4.0); Lymphocyte % 24.2 % (19-41); Mean Corp Hgb Conc 32.8 g/gl (32-36); Mean Corpuscular Hgb 27.1 pg (27.0-32.0); Mean Corpuscular Volume 82.7 fL (81-99); Mean Platelet Vol. 10.4 fl (6.2-12.0); Monocyte# 0.65 X10^3/uL; Neutrophil # 7.43 X10^3/uL (2.7-7.7); Neutrophil % 67.9 % (47-70); Platelet Count 346 K/mm3 (150-450); RBC Distribution Width CV 14.2 % (11.6-14.6); White Blood Count 10.9 K/mm3 (4.4-11.0)
[2018-03-26 07:57] LABS: POSITIVE COUNT NO; POSITIVE DIFFERENTIAL NO; POSITIVE MORPHOLOGY NO
[2018-03-26 08:12] LABS: Microalbumin,Random Urine 7.4 mg/L (NO RANGE EST.)
[2018-03-26 08:21] LABS: Hemoglobin A1c 6.1 % (4.2-6.3)
[2018-03-26 08:22] LABS: ALB/GLOB Ratio 1.1 RATIO (0.9-2.4); AST(SGOT) 8 U/L (15-37); Alanine Aminotransfer ALT/SGPT 18 U/L (13-56); Albumin, Serum 3.8 g/dL (3.2-5.0); Alkaline Phosphatase 95 U/L (45-117); Anion Gap 10 (5-15); BUN 23 mg/dL (7-18); BUN/Creat Ratio 31.9 RATIO (10-20); Calcium,Total 8.6 mg/dL (8.5-10.1); Chloride 109 mmol/L (98-107); Cholesterol 187 mg/dL (200); Creatinine, Serum 0.72 mg/dL (0.55-1.02); EST Glomerular Filtration Rate 87 mL/min (>60); Est Glom Filt Rate - Afr Amer 105 mL/min (>60); Globulin 3.4 g/dL (2.2-4.2); Glucose 88 mg/dL (74-106); High Density Lipoprotein 53 mg/dL; Potassium 4.1 mmol/L (3.5-5.1); Protein, Total 7.2 g/dL (6.4-8.2); Sodium Level 140 mmol/L (136-145); Thyroid Stim Hormone (TSH) 2.07 uIU/mL (0.358-3.74); Triglycerides 98 mg/dL; Very Low Density Lipoprotein 20 mg/dL (5-40)
[2018-03-26 08:23] LABS: Vitamin B12 374 pg/mL (211-911); Vitamin D,25 Hydroxy 24.5 ng/mL (29.95-100.01)
== END ==
PROVIDERS: Family Provider Internal Medicine; PCP Internal Medicine; Referring Provider Internal Medicine; Visit Provider Internal Medicine
DX: R73.09 Other abnormal glucose (principal); I10 Essential (primary) hypertension; E04.1 Nontoxic single thyroid nodule; E53.8 Deficiency of other specified B group vitamins; E78.2 Mixed hyperlipidemia; E55.9 Vitamin D deficiency, unspecified
CPT/HCPCS: 36415; 80053; 80061; 82043; 82306; 82570; 82607; 83036; 84443; 85025

== ENCOUNTER → 2018-04-02 09:18 | Outpatient (CLI) | payer BC, SELFPAY ==
[2018-03-21 03:03] VITALS: BMI 42.6
--- NOTE | 2018-04-02 09:20 | US_ITS ---
STUDY: ABDOMINAL ULTRASOUND - RIGHT UPPER QUADRANT REASON FOR VISIT: Female, 62 years old. Right upper quadrant pain TECHNIQUE: Ultrasound evaluation of the right upper quadrant was performed with real-time and static arteaga-scale imaging. TECHNICAL QUALITY: Adequate. COMPARISON: None. FINDINGS: Liver: The liver measures 17.6 cm. There is increased echogenicity consistent with fatty infiltration. The bile ducts are within normal limits. There is hepatic color flow. The direction of portal flow is hepatopetal. Hypoechoic mass in the left hepatic lobe measuring 1.5 x 1.5 x 1.9 cm. This appears to be avascular. Gallbladder: Normal distended gallbladder. The gallbladder wall measures 2 mm. There is a negative sonographic Cabrera's sign. There is no pericholecystic fluid. There are no gallstones. Common Bile Duct (C.B.D.): The common bile duct measures 4 mm. Pancreas: Normal size of the head, body and tail of the pancreas. There is normal echogenicity of the pancreas. There is no demonstrated pancreatic mass or cyst. Right Kidney: Normal size of the right kidney. The right kidney measures 11.5 x 6 x 4.5 cm. Normal renal cortex. The right cortex measures 1.8 cm. There is inferior pole 1.4 x 1 x 1 cm cyst. There is no right hydronephrosis. US/Abdomen Limited IMPRESSION: Moderate hepatomegaly and hepatic steatosis. Small subcentimeter right hepatic low attenuation on CT is not visualized. Hypoechoic area within the anterior left hepatic lobe medial lobe is seen very subtle finding retrospectively on CT. This is not a simple cyst. This can represent a benign finding such as hemangioma. This can be further assessed with MRI. Small right renal cyst. Electronically Signed: Klarissa Busch MD at 6:34 EST , Service support ,
== END ==
PROVIDERS: Family Provider Internal Medicine; PCP Internal Medicine; Referring Provider Internal Medicine; Visit Provider Internal Medicine
DX: R10.9 Unspecified abdominal pain (principal)
CPT/HCPCS: 76705

== ENCOUNTER → 2018-06-16 06:12 | Outpatient (CLI) | payer BC, SELFPAY ==
[2018-06-16 07:50] LABS: Absolute Lymphocyte Count 2.62 X10^3/ul (0.83-4.51); Absolute Neutrophil Count 4.3 X10^3/uL (2.0-7.7); Basophil# 0.03 X10^3/uL; Basophil% 0.4 % (0-1); Eosinophils% 1.4 % (0-5); Hematocrit 43.4 % (37-47); Hemoglobin 14.7 g/dl (12.0-15.0); Lymphocyte # 2.62 X10^3/ul (4.0); Lymphocyte % 35.9 % (19-41); Mean Corp Hgb Conc 33.9 g/gl (32-36); Mean Corpuscular Hgb 27.7 pg (27.0-32.0); Mean Corpuscular Volume 81.7 fL (81-99); Mean Platelet Vol. 10.1 fl (6.2-12.0); Monocyte# 0.27 X10^3/uL; Monocyte% 3.7 % (0-10); Neutrophil # 4.27 X10^3/uL (2.7-7.7); Neutrophil % 58.5 % (47-70); Platelet Count 270 K/mm3 (150-450); RBC Distribution Width CV 13.1 % (11.6-14.6); RBC Distribution Width SD 39.3 fl (35.1-43.9); Red Blood Count 5.31 M/mm3 (4.2-5.4); White Blood Count 7.3 K/mm3 (4.4-11.0)
[2018-06-16 07:51] LABS: POSITIVE COUNT NO; POSITIVE DIFFERENTIAL NO; POSITIVE MORPHOLOGY NO
[2018-06-16 07:59] LABS: ALB/GLOB Ratio 1.1 RATIO (0.9-2.4); AST(SGOT) 16 U/L (15-37); Alanine Aminotransfer ALT/SGPT 22 U/L (13-56); Albumin, Serum 3.9 g/dL (3.2-5.0); Alkaline Phosphatase 88 U/L (45-117); Anion Gap 9 (5-15); BUN 15 mg/dL (7-18); BUN/Creat Ratio 20.5 RATIO (10-20); Calcium,Total 8.9 mg/dL (8.5-10.1); Chloride 109 mmol/L (98-107); Cholesterol 144 mg/dL (200); Creatinine, Serum 0.73 mg/dL (0.55-1.02); EST Glomerular Filtration Rate 86 mL/min (>60); Est Glom Filt Rate - Afr Amer 104 mL/min (>60); Globulin 3.4 g/dL (2.2-4.2); Glucose 96 mg/dL (74-106); High Density Lipoprotein 47 mg/dL; Potassium 3.3 mmol/L (3.5-5.1); Protein, Total 7.3 g/dL (6.4-8.2); Sodium Level 141 mmol/L (136-145); Triglycerides 131 mg/dL; Very Low Density Lipoprotein 26 mg/dL (5-40)
[2018-06-16 09:30] LABS: Vitamin B12 610 pg/mL (211-911); Vitamin D,25 Hydroxy 45.3 ng/mL (29.95-100.01)
[2018-06-16 12:47] LABS: Hemoglobin A1c 5.9 % (4.2-6.3)
[2018-06-17 14:42] LABS: AFP, Tumor Marker 4.2 ng/mL (0.0-8.3)
== END ==
PROVIDERS: Family Provider Internal Medicine; PCP Internal Medicine; Referring Provider Internal Medicine; Visit Provider Internal Medicine
DX: R73.09 Other abnormal glucose (principal); K76.0 Fatty (change of) liver, not elsewhere classified; I10 Essential (primary) hypertension; E55.9 Vitamin D deficiency, unspecified; E78.2 Mixed hyperlipidemia; E53.8 Deficiency of other specified B group vitamins
CPT/HCPCS: 36415; 80053; 80061; 82105; 82306; 82607; 83036; 85025

== ENCOUNTER 2018-07-10 10:01 | Emergency (ER) | payer BC, SELFPAY ==
[2018-07-10 10:01] VITALS: BP 187/107; PULSE 59; RESP 20; TEMP 36.4; O2SAT 97; BMI 42.1
--- NOTE | 2018-07-10 10:14 | RAD_ITS ---
STUDY: X-RAY CHEST REASON FOR EXAM: Female, 62 years old. Chest pain TECHNIQUE: AP COMPARISON: 12/07/2017 FINDINGS: EKG leads project over the chest. The lungs are clear and expanded. There is no demonstrated pleural abnormality. Normal size heart. Normal mediastinum and jennifer. Normal visualized pulmonary arteries. There is atherosclerotic tortuosity of the aortic arch and descending thoracic aorta. Normal visualized thoracic spine. There is degenerative osteoarthritis of the bilateral shoulders. There is no demonstrated abnormality of the visualized soft tissue structures of the upper abdomen. RAD/Chest 1 View (Portable) IMPRESSION: Stable, nonacute portable x-ray examination of the chest. Electronically Signed: Quinton Bacno MD at 10:32 EDT , Service support ,
--- NOTE | 2018-07-10 10:14 | EKG12_ITS ---
Test Reason : PALPS Blood Pressure : / mmHG Vent. Rate : 058 BPM Atrial Rate : 058 BPM P-R Int : 162 ms QRS Dur : 076 ms QT Int : 412 ms P-R-T Axes : -05 007 019 degrees QTc Int : 404 ms Sinus bradycardia Inferior AK, age undetermined, cannot be excluded Confirmed by SAMMI FOX, TATO ([id number]), news videotape editor SHEN SINCLAIR ([id number]) on 07/13/2018 1:59:54 PM Referred By: AIMEE Confirmed By:TATO CHAPA MD
--- NOTE | 2018-07-10 10:16 | ED.DCSUM_ITS ---
- ER Visit Summary Date of Service: 07/10/18 Chief Complaint: Chest pain History of Present Illness: The patient is a 62 F who presents with chest pain. She states that last night and into this morning she has had a vibrating sensation in the left part of her chest. It last seconds to a minute. It only happens in the left parasternal area. Nothing seems to make it better or worse. She has mild shortness of breath. Denies nausea or vomiting. She has a history of hypertension but no other cardiac risk factors. She has no history of coronary artery disease. She took nothing for this at home. She is a non- smoker. Physical Examination: Vital signs reviewed. HEENT exam unremarkable. Heart is regular rate and rhythm without murmurs. Lungs are clear to auscultation. Abdomen is soft and nontender. Extremities reveal no edema. Peripheral pulses are equal. Skin exam normal. Neurologic exam normal. Test Results: EKG is sinus rhythm with a rate of 58. No ST changes. Intervals normal. Laboratory studies are normal. Chest x-ray unremarkable as well. Emergency Department Course and Treatment: Patient was given aspirin. I was in the room when she had 1 of these episodes. Her heart monitor remain normal. It only lasted a few seconds. This could be a muscle spasm causing the symptoms. I do not feel it is cardiac in nature. Patient will be discharged to monitor her symptoms and follow-up with her PCP Treatment Plan: [] Disposition: Discharge Impression: Chest pain This note was generated with [employer] dictation software. It may contain incorrect words, spelling, and punctuation that were not noted in review of the chart prior to signing ED Disposition - Plan for ED Patient: Referrals: Candida Demarco DO [Primary Care Provider] -
[2018-07-10 10:28] LABS: Absolute Lymphocyte Count 2.13 X10^3/ul (0.83-4.51); Absolute Neutrophil Count 6.9 X10^3/uL (2.0-7.7); Basophil# 0.02 X10^3/uL; Basophil% 0.2 % (0-1); Eosinophil# 0.13 X10^3/uL; Eosinophils% 1.3 % (0-5); Hematocrit 43.9 % (37-47); Hemoglobin 14.8 g/dl (12.0-15.0); Lymphocyte # 2.13 X10^3/ul (4.0); Lymphocyte % 21.4 % (19-41); Mean Corp Hgb Conc 33.7 g/gl (32-36); Mean Corpuscular Hgb 28.1 pg (27.0-32.0); Mean Corpuscular Volume 83.5 fL (81-99); Mean Platelet Vol. 9.7 fl (6.2-12.0); Neutrophil # 6.94 X10^3/uL (2.7-7.7); Neutrophil % 69.9 % (47-70); Platelet Count 247 K/mm3 (150-450); RBC Distribution Width CV 13.8 % (11.6-14.6); RBC Distribution Width SD 42.3 fl (35.1-43.9); Red Blood Count 5.26 M/mm3 (4.2-5.4); White Blood Count 9.9 K/mm3 (4.4-11.0)
[2018-07-10 10:31] LABS: POSITIVE COUNT NO; POSITIVE DIFFERENTIAL NO; POSITIVE MORPHOLOGY NO
[2018-07-10] MEDS: Aspirin 81 MG TAB.CHEW 324 MG PO (10:31)
[2018-07-10 10:34] VITALS: BP 116/70; PULSE 69; RESP 18; O2SAT 98
[2018-07-10 10:43] LABS: BUN 31 mg/dL (7-18); Creatinine, Serum 0.91 mg/dL (0.55-1.02); Glucose 93 mg/dL (74-106)
[2018-07-10 10:44] LABS: Anion Gap 6 (5-15); Calcium,Total 9.1 mg/dL (8.5-10.1); Chloride 110 mmol/L (98-107); EST Glomerular Filtration Rate 67 mL/min (>60); Est Glom Filt Rate - Afr Amer 80 mL/min (>60); Potassium 4.4 mmol/L (3.5-5.1); Sodium Level 142 mmol/L (136-145)
--- NOTE | 2018-07-10 10:51 | ED.DEP ---
ED Disposition - Plan for ED Patient: Disposition: Home or Assisted Living Instructions: ED Chest Pain NonCardiac Referrals: Candida Demarco DO [Primary Care Provider] -
[2018-07-10 11:43] VITALS: BP 113/61; PULSE 67; RESP 18; O2SAT 99
== END 2018-07-10 11:45 | disposition home or self-care (01) ==
PROVIDERS: Emergency Provider Emergency Medicine; Family Provider Internal Medicine; PCP Internal Medicine
DX: R07.9 Chest pain, unspecified (principal); I10 Essential (primary) hypertension
CPT/HCPCS: 71045; 80048; 84484; 85025; 93005; 99285; A4216

== ENCOUNTER → 2018-08-23 | Outpatient (CLI) | payer BC, SELFPAY ==
--- NOTE | 2018-08-23 09:09 | US_ITS ---
HISTORY: NODULES EXAMINATION: US Thyroid (eg thyroid, parathyroid, parotid) TECHNIQUE: Moreno scale and color doppler imaging was performed of the thyroid gland. COMPARISON: Most recent thyroid ultrasound is from April 22, 2017. Additional comparison study is a CT scan of the neck from April 16, 2017. FINDINGS: RIGHT THYROID LOBE: Measures 4.7 x 1.8 x 1.7 cm. Homogeneous echotexture with normal vascularity. Within the midportion of the right lobe of the thyroid gland there is a 10 x 7 x 6 mm solid lesion with regular margins. There is intra-and. Nodular vascularization. LEFT THYROID LOBE: Measures 4.2 x 1.9 x 1.5 cm.. Homogeneous echotexture with normal vascularity. 2 left lobe thyroid nodules are demonstrated. One measures 9 x 7 x 5 mm and is simple and cystic. The other measures 10 x 9 x 5 mm and is complex. Both are present within the midportion left lobe of the thyroid gland. They've regular margins with kush-nodular flow. ISTHMUS: 4 mm. No thyroid nodules are present. US/Thyroid IMPRESSION: The lesion within the right lobe of the thyroid gland is likely a spongiform thyroid nodule, likely a colloid nodule benign. Accounting for differences in cursor placement it does not appear to significantly change since previous study of April 22, 2017. The larger lesion within the left lobe of the thyroid gland is a benign cyst. It is unchanged since previous study. Previously, the second nodule within the left lobe of the thyroid gland measured 10 x 6 x 6 mm. Therefore, by measurements placed on today's study, it appears to be minimally larger. This enlargement is within the transverse, left and right plane. It may also be a spongiform benign nodule. at 2214 Reported and signed by: Evaristo Ramirez MD Electronically Signed: Evaristo Ramirez MD at 22:13 EDT Tel , Service support ,
== END | disposition home or self-care (01) ==
PROVIDERS: Family Provider Internal Medicine; PCP Internal Medicine; Referring Provider Internal Medicine; Visit Provider Internal Medicine
DX: E04.1 Nontoxic single thyroid nodule (principal)
CPT/HCPCS: 76536

== ENCOUNTER → 2018-09-14 11:27 | Outpatient (CLI) | payer BC, SELFPAY ==
[2018-09-03 08:58] VITALS: BMI 42.1
--- NOTE | 2018-09-14 11:35 | RAD_ITS ---
STUDY: X-RAY CHEST REASON FOR EXAM: Female, 62 years old. TECHNIQUE: 2 views COMPARISON: July 10, 2018 FINDINGS: The lungs are clear and expanded. There is no demonstrated pleural abnormality. Normal size heart. Normal mediastinum and jennifer. Normal visualized pulmonary arteries. Normal visualized aortic arch and descending thoracic aorta. Normal visualized thoracic spine. Normal visualized ribs, clavicles, and shoulders. There is no demonstrated abnormality of the visualized soft tissue structures of the upper abdomen. RAD/Chest PA and Lateral IMPRESSION: Normal x-ray examination of the chest, unchanged since July 10, 2018. Electronically Signed: Zeynep Green, at 16:33 EDT Tel , Service support ,
== END ==
PROVIDERS: Family Provider Internal Medicine; PCP Internal Medicine; Referring Provider Internal Medicine; Visit Provider Internal Medicine
DX: R06.09 Other forms of dyspnea (principal)
CPT/HCPCS: 71046

== ENCOUNTER → 2018-10-07 09:48 | Outpatient (CLI) | payer BC, SELFPAY ==
[2018-09-03 08:58] VITALS: BMI 42.1
--- NOTE | 2018-10-07 09:51 | BI_ITS ---
MAMMOGRAPHY - BILATERAL SCREENING REASON FOR EXAM: Female, 62 years old. Routine annual screening examination. PERTINENT HISTORY: Sister with breast cancer. TECHNIQUE: Digital bilateral breast esau (3D mammographic acquisition) in the CC and MLO projections. 2-D mediolateral oblique (MLO) and craniocaudad (CC) views of both breasts were obtained. CAD: Full Field Digital Mammography with Computer Added Detection was performed. COMPARISON: Comparison is made with prior study dated October 06, 2017 and July 23, 2016. FINDINGS: Breast Composition: The breasts are almost entirely fatty. There are no dominant masses or suspicious calcifications. No other significant abnormalities are identified. There has been no significant change since the prior study. BI/SCREEN MAMM (CAD) W/ESAU BILAT IMPRESSION: Stable bilateral screening mammogram. Yearly follow-up mammogram recommended. (A) ASSESSMENT CATEGORY: BIRADS Category 1: Negative. A letter regarding these results will be sent to the patient by the facility within 30 days. Approximately 10% of breast cancers are not detected by mammography. A normal mammogram should not delay biopsy of a clinically suspicious abnormality. [id number] Electronically Signed: Jacob Hagan, at 11:22 EDT , Service support ,
== END ==
PROVIDERS: Family Provider Internal Medicine; PCP Internal Medicine; Referring Provider Internal Medicine; Visit Provider Internal Medicine
DX: Z12.31 Encounter for screening mammogram for malignant neoplasm of breast (principal)
CPT/HCPCS: 77063; 77067

== ENCOUNTER → 2018-12-25 07:10 | Outpatient (CLI) | payer BC, SELFPAY ==
[2018-09-03 08:58] VITALS: BMI 42.1
[2018-12-25 08:41] LABS: Absolute Lymphocyte Count 2.46 X10^3/uL (0.83-4.51); Absolute Neutrophil Count 5.3 X10^3/uL (2.0-7.7); Basophil# 0.06 X10^3/uL; Basophil% 0.7 % (0-1); Eosinophil# 0.18 X10^3/uL; Eosinophils% 2.1 % (0-5); Hematocrit 45.1 % (37-47); Hemoglobin 14.7 g/dL (12.0-15.0); Lymphocyte # 2.46 X10^3/ul (4.0); Mean Corp Hgb Conc 32.6 g/dL (32-36); Mean Corpuscular Hgb 27.4 pg (27.0-32.0); Mean Corpuscular Volume 84.1 fL (81-99); Monocyte# 0.49 X10^3/uL; Monocyte% 5.8 % (0-10); NRBC Flagged by Analyzer 0 % (0-5); Neutrophil # 5.26 X10^3/uL (2.7-7.7); Platelet Count 289 K/mm3 (150-450); RBC Distribution Width CV 12.7 % (11.6-14.6); RBC Distribution Width SD 38.5 fl (35.1-43.9); Red Blood Count 5.36 M/mm3 (4.2-5.4); White Blood Count 8.5 K/mm3 (4.4-11.0)
[2018-12-25 09:24] LABS: ALB/GLOB Ratio 0.9 RATIO (0.9-2.4); AST(SGOT) 9 U/L (15-37); Alanine Aminotransfer ALT/SGPT 16 U/L (13-56); Albumin, Serum 3.2 g/dL (3.2-5.0); Alkaline Phosphatase 77 U/L (45-117); Anion Gap 7 (5-15); BUN 20 mg/dL (7-18); BUN/Creat Ratio 24.6 RATIO (10-20); Calcium,Total 8.6 mg/dL (8.5-10.1); Chloride 113 mmol/L (98-107); Cholesterol 130 mg/dL (200); Creatinine, Serum 0.81 mg/dL (0.55-1.02); EST Glomerular Filtration Rate 76 mL/min (>60); Est Glom Filt Rate - Afr Amer 92 mL/min (>60); Globulin 3.4 g/dL (2.2-4.2); Glucose 99 mg/dL (74-106); High Density Lipoprotein 33 mg/dL; Potassium 3.9 mmol/L (3.5-5.1); Protein, Total 6.6 g/dL (6.4-8.2); Sodium Level 142 mmol/L (136-145); Triglycerides 131 mg/dL; Very Low Density Lipoprotein 26 mg/dL (5-40)
[2018-12-27 09:19] LABS: Vitamin B12 432 pg/mL (211-911); Vitamin D,25 Hydroxy 37.7 ng/mL (29.95-100.01)
== END ==
PROVIDERS: Family Provider Internal Medicine; PCP Internal Medicine; Referring Provider Internal Medicine; Visit Provider Internal Medicine
DX: E53.8 Deficiency of other specified B group vitamins (principal); E55.9 Vitamin D deficiency, unspecified; R82.90 Unspecified abnormal findings in urine; I10 Essential (primary) hypertension; R73.09 Other abnormal glucose; E78.2 Mixed hyperlipidemia
CPT/HCPCS: 36415; 80053; 80061; 82306; 82607; 83036; 85025; 87086; 87088

== ENCOUNTER 2019-01-23 16:20 | Emergency (ER) | payer BC, SELFPAY ==
[2018-09-03 08:58] VITALS: BMI 42.1
[2019-01-23 16:22] VITALS: BP 161/90; PULSE 77; RESP 14; TEMP 36.2; O2SAT 97; BMI 43.8
[2019-01-23 16:32] VITALS: BP 167/100; PULSE 72; RESP 15; O2SAT 96
--- NOTE | 2019-01-23 16:44 | EKG12_ITS ---
Test Reason : PALPITATIONS Blood Pressure : / mmHG Vent. Rate : 064 BPM Atrial Rate : 064 BPM P-R Int : 172 ms QRS Dur : 082 ms QT Int : 404 ms P-R-T Axes : 046 013 016 degrees QTc Int : 416 ms Normal sinus rhythm Normal ECG Confirmed by SAMMI FOX, TATO ([id number]), food editor KARTIK LUCAS ([id number]) on 01/26/2019 10:56:51 AM Referred By: REGULO Confirmed By:TATO CHAPA MD
--- NOTE | 2019-01-23 16:44 | RAD_ITS ---
STUDY: X-RAY CHEST REASON FOR EXAM: Female, 63 years old. Palpitations for 3 or 4 days. TECHNIQUE: PA and lateral views of the chest. COMPARISON: September 14, 2018. FINDINGS: Cardiac monitoring leads are present. The lungs are mildly underexpanded with crowding of the bronchovascular markings and obscuration of lung bases. There is no demonstrated pleural abnormality. There is borderline cardiomegaly. Normal mediastinum and jennifer. There is prominence of the pulmonary hilar arteries without peripheral pulmonary vascular congestion. Normal visualized aortic arch and descending thoracic aorta. There are diffuse degenerative changes of the visualized thoracic spine. There are degenerative changes of both shoulders. There is no demonstrated abnormality of the visualized soft tissue structures of the upper abdomen. RAD/Chest PA and Lateral IMPRESSION: No radiographic evidence of acute cardiopulmonary disease. Electronically Signed: Michelle Conner MD at 17:47 EST , Service support ,
--- NOTE | 2019-01-23 16:45 | ED.DCSUM_ITS ---
History of Present Illness Chief Complaint: Palpitations Detail of Chief Complaint: Vibrating in chest Informant: Patient Onset: Days - For 5 days Timing: Continuous Current Severity: Mild Maximum Severity: Mild Narrative: Patient presents with a vibrating sensation in her chest that is been ongoing for the last 4 or 5 days. It is not necessarily exacerbated by anything. She denies any increased shortness of breath. No URI symptoms. No change in medication. She has had the symptoms in the past but they were typically only last for seconds to a few minutes. She was last seen here in June for the same and had a negative work-up. Patient states his symptoms resolved after that visit and she had not had any problems again until this past week. She denies f eeling lightheaded or dizzy. She does not feel she is going to pass out. Past Medical History - Allergies and Home Meds Allergies/Adverse Reactions: Allergies No Known Allergies Allergy (Verified 01/23/19 16:22) Primary Care Physician: Candida Demarco DO [Primary Care Provider] - Prior records reviewed: Yes Past Medical History: - - Reviewed Lives: Spouse/ Significant Other Smoking Status: Never smoker Review of Systems General: Denies: Chills, Fever Eyes: Denies: Visual changes - bilaterally ENT: Denies: Bilateral ear pain Cardiovascular: Reports: - - Vibrating sensation in chest. Does not feel like her heart is skipping beats.. Denies: Chest pain Respiratory: Denies: Dyspnea, Cough Gastrointestinal: Denies: Abdominal pain, Nausea, Vomiting, Diarrhea Musculoskeletal: Denies: Neck pain, Back pain, Extremity Pain Skin: Denies: Rash Neurological: Denies: Headache, Weakness, Parasthesia Hematologic: Denies: Easy bruising Allergy: Denies: Uticaria Physical Exam Vital Signs/Narrative: Vital Signs Temp Pulse Resp BP Pulse Ox 01/23/19 16:32 72 15 167/100 H 96 01/23/19 16:22 97.1 F L 77 14 161/90 H 97 Inital Vital Signs reviewed: Yes General: Well nourished, Well developed Head: Normocephalic ENT: Moist mucous membranes Neck: Supple Cardiovascular: Regular rate, Regular rhythm Respiratory: No distress, CTA bilaterally Abdomen: Soft, Nontender, Nondistended Back: Nontender Extremities: Nontender Skin: Normal color, No rash Neurological: Alert, Oriented x3 Psychological: Normal affect Diagnostic/Tx/Re-eval Impressions Chest X-Ray 01/23/19 16:44 IMPRESSION: No radiographic evidence of acute cardiopulmonary disease. Electronically Signed: Michelle Conner MD at 17:47 EST , Service support , Chest CTA 01/23/19 17:45 IMPRESSION: 1. No CTA demonstrated pulmonary embolism or arterial dissection. 2. Right basilar subsegmental atelectasis. Electronically Signed: Michelle Conner MD at 20:02 EST , Service support , 01/23/19 16:44 Chest PA and Lateral [RAD] Stat 01/23/19 17:45 CTA Chest W/WO Contrast [CT] Stat Laboratory Results 01/23/19 01/23/19 01/23/19 17:10 17:10 17:10 WBC 8.7 RBC 5.57 H Hgb 15.4 H Hct 47.6 H MCV 85.5 MCH 27.6 MCHC 32.4 RDW Std Deviation 40.4 RDW Coeff of Onel 13.0 Plt Count 268 MPV 10.0 Immature Gran % (Auto) 0.200 Neut % (Auto) 67.0 Lymph % (Auto) 25.3 Sandoval % (Auto) 5.5 Eos % (Auto) 1.3 Baso % (Auto) 0.7 Absolute Neuts (auto) 5.8 Absolute Lymphs (auto) 2.21 Nucleated RBC % 0 D-Dimer Quant (PE/DVT) 0.70 H* Sodium 142 Potassium 4.1 Chloride 108 H Carbon Dioxide 27.0 Anion Gap 7 BUN 22 H Creatinine 0.82 Estim Creat Clear Calc 58.84 Est GFR (MDRD) Af Amer 90 Est GFR (MDRD) Non-Af 75 BUN/Creatinine Ratio 26.7 H Glucose 95 Calcium 9.4 Troponin I < 0.015 TSH 1.25 - EKG Initial EKG Interpretation: Sinus Rhythm - Sinus rhythm at 64 bpm. - Medical Decision Making Patient is given IV fluids here. Vital signs remained stable. She has remained in sinus rhythm. Test results are discussed with patient and at bedside. She is reassured with the work-up. She is supposed to see her primary care physician tomorrow and will discuss her symptoms with her further at that time. ED Disposition - Plan for ED Patient: Disposition: Home or Assisted Living Diagnosis: Palpitations Instructions: Palpitations Referrals: Candida Demarco DO [Primary Care Provider] - 1 Day
[2019-01-23 17:25] LABS: Absolute Lymphocyte Count 2.21 X10^3/uL (0.83-4.51); Absolute Neutrophil Count 5.8 X10^3/uL (2.0-7.7); Basophil# 0.06 X10^3/uL; Basophil% 0.7 % (0-1); Eosinophil# 0.11 X10^3/uL; Eosinophils% 1.3 % (0-5); Hematocrit 47.6 % (37-47); Hemoglobin 15.4 g/dL (12.0-15.0); Lymphocyte # 2.21 X10^3/ul (4.0); Lymphocyte % 25.3 % (19-41); Mean Corp Hgb Conc 32.4 g/dL (32-36); Mean Corpuscular Hgb 27.6 pg (27.0-32.0); Mean Corpuscular Volume 85.5 fL (81-99); Monocyte# 0.48 X10^3/uL; Monocyte% 5.5 % (0-10); NRBC Flagged by Analyzer 0 % (0-5); Neutrophil # 5.84 X10^3/uL (2.7-7.7); Platelet Count 268 K/mm3 (150-450); RBC Distribution Width SD 40.4 fl (35.1-43.9); Red Blood Count 5.57 M/mm3 (4.2-5.4); White Blood Count 8.7 K/mm3 (4.4-11.0)
--- NOTE | 2019-01-23 17:45 | CT_ITS ---
STUDY: CTA CHEST REASON FOR EXAM: Female, 63 years old. Chest pain for 3 to 4 days. RADIATION DOSAGE (If Supplied By Facility): CTDIvol = ( 19.79 ) mGy, DLP = ( 499.09 ) mGycm TECHNIQUE: The examination was performed with the intravenous administration of 100 mL of Isovue-370. Post-processing of the angiographic images was performed, with multiplanar reformation and 3D reconstruction. Individualized dose optimization techniques were used for this CT. COMPARISON: None. FINDINGS: Normal enhancement of the main pulmonary artery and right and left pulmonary arteries. There is limited enhancement of the bilateral peripheral pulmonary arteries. There is no demonstrated pulmonary embolism. There is atherosclerotic tortuosity of the aortic arch and descending thoracic aorta. Maximum transverse dimension of the ascending thoracic aorta measures 4.1 cm. There is no demonstrated aortic dissection. Normal heart and pericardium. There are visualized mediastinal lymph nodes, which are within normal size limits, and with normal morphology. Normal hilar regions. Normal visualized trachea and bronchi. The lungs are well expanded. There is right basilar subsegmental atelectasis. Normal pleura. Normal chest wall structures. There are degenerative changes of thoracic spine. Normal visualized upper abdomen. CT/CTA Chest W/WO Contrast IMPRESSION: 1. No CTA demonstrated pulmonary embolism or arterial dissection. 2. Right basilar subsegmental atelectasis. Electronically Signed: Michelle Conner MD at 20:02 EST , Service support ,
[2019-01-23 18:00] LABS: Anion Gap 7 (5-15); BUN 22 mg/dL (7-18); BUN/Creat Ratio 26.7 RATIO (10-20); Calcium,Total 9.4 mg/dL (8.5-10.1); Chloride 108 mmol/L (98-107); Creatinine, Serum 0.82 mg/dL (0.55-1.02); EST Glomerular Filtration Rate 75 mL/min (>60); Est Glom Filt Rate - Afr Amer 90 mL/min (>60); Estimated Creatinine Clearance 58.84 ml/min; Glucose 95 mg/dL (74-106); Potassium 4.1 mmol/L (3.5-5.1); Sodium Level 142 mmol/L (136-145); Thyroid Stim Hormone (TSH) 1.25 uIU/mL (0.358-3.74)
[2019-01-23 18:21] VITALS: BP 141/88; PULSE 65; RESP 18; O2SAT 96
[2019-01-23] MEDS: 0.9% Normal Saline 1,000 ML 150 ML IV (18:36)
[2019-01-23 20:22] VITALS: BP 142/89; PULSE 88; RESP 18; O2SAT 97
== END 2019-01-23 20:30 | disposition home or self-care (01) ==
PROVIDERS: Emergency Provider Emergency Medicine; Family Provider Internal Medicine; PCP Internal Medicine
DX: R00.2 Palpitations (principal)
CPT/HCPCS: 71046; 71275; 80048; 84443; 84484; 85025; 85379; 93005; 96360; 96361; 99285; J7030; Q9967; A4216

== ENCOUNTER → 2019-03-28 09:28 | Outpatient (CLI) | payer BC, SELFPAY ==
[2019-03-28 10:30] LABS: Absolute Lymphocyte Count 2.28 X10^3/uL (0.83-4.51); Absolute Neutrophil Count 5.3 X10^3/uL (2.0-7.7); Basophil# 0.05 X10^3/uL; Basophil% 0.6 % (0-1); Eosinophil# 0.14 X10^3/uL; Eosinophils% 1.7 % (0-5); Hemoglobin 15.2 g/dL (12.0-15.0); Lymphocyte # 2.28 X10^3/ul (4.0); Lymphocyte % 27.9 % (19-41); Mean Corp Hgb Conc 33.8 g/dL (32-36); Mean Corpuscular Hgb 27.9 pg (27.0-32.0); Mean Corpuscular Volume 82.6 fL (81-99); Monocyte# 0.43 X10^3/uL; Monocyte% 5.3 % (0-10); NRBC Flagged by Analyzer 0 % (0-5); Neutrophil # 5.25 X10^3/uL (2.7-7.7); Neutrophil % 64.1 % (47-70); Platelet Count 274 K/mm3 (150-450); RBC Distribution Width SD 38.8 fl (35.1-43.9); Red Blood Count 5.45 M/mm3 (4.2-5.4); White Blood Count 8.2 K/mm3 (4.4-11.0)
[2019-03-28 10:47] LABS: Microalbumin,Random Urine 18.6 mg/L (NO RANGE EST.); Microalbumin:Creatinine Ratio 9.7 mg/g CRE (<30 mg/g CRE)
[2019-03-28 10:52] LABS: Hemoglobin A1c 6.2 % (4.2-6.3)
[2019-03-28 11:04] LABS: AST(SGOT) 12 U/L (15-37); Alanine Aminotransfer ALT/SGPT 25 U/L (13-56); Albumin, Serum 3.4 g/dL (3.2-5.0); Alkaline Phosphatase 93 U/L (45-117); Anion Gap 5 (5-15); BUN 15 mg/dL (7-18); BUN/Creat Ratio 17.4 RATIO (10-20); Calcium,Total 8.6 mg/dL (8.5-10.1); Chloride 109 mmol/L (98-107); Cholesterol 141 mg/dL (200); Creatinine, Serum 0.86 mg/dL (0.55-1.02); EST Glomerular Filtration Rate 71 mL/min (>60); Est Glom Filt Rate - Afr Amer 86 mL/min (>60); Globulin 3.5 g/dL (2.2-4.2); Glucose 99 mg/dL (74-106); High Density Lipoprotein 49 mg/dL; Potassium 3.9 mmol/L (3.5-5.1); Protein, Total 6.9 g/dL (6.4-8.2); Sodium Level 139 mmol/L (136-145); Thyroid Stim Hormone (TSH) 1.82 uIU/mL (0.358-3.74); Triglycerides 123 mg/dL; Very Low Density Lipoprotein 25 mg/dL (5-40)
== END ==
PROVIDERS: Family Provider Internal Medicine; PCP Internal Medicine; Referring Provider Internal Medicine; Visit Provider Internal Medicine
DX: E04.1 Nontoxic single thyroid nodule (principal); E78.5 Hyperlipidemia, unspecified; E55.9 Vitamin D deficiency, unspecified; R73.09 Other abnormal glucose
CPT/HCPCS: 36415; 80053; 80061; 82043; 82306; 82570; 83036; 84443; 85025

== ENCOUNTER → 2019-04-04 07:37 | Outpatient (CLI) | payer BC, SELFPAY ==
--- NOTE | 2019-04-04 07:38 | US_ITS ---
STUDY: ABDOMINAL ULTRASOUND - RIGHT UPPER QUADRANT REASON FOR VISIT: Female, 63 years old ELEVATED LIVER ENZYMES TECHNIQUE: Ultrasound evaluation of the right upper quadrant was performed with real-time and static arteaga-scale imaging. TECHNICAL QUALITY: Adequate. COMPARISON: Comparison is made with prior study dated April 02, 2018. FINDINGS: Liver: The liver measures 17.8 cm. There is increased echogenicity consistent with fatty infiltration. The bile ducts are within normal limits. There is hepatic color flow. The direction of portal flow is hepatopetal. In the left lobe of the liver, there is a 1.7 cm x 2.2 cm x 1.3 cm slightly hypoechoic nodule. This may represent an hemangioma. This is unchanged. Gallbladder: Normal distended gallbladder. The gallbladder wall measures 2.9 mm. There is a negative sonographic Cabrera''s sign. There is no pericholecystic fluid. There are no gallstones. Common Bile Duct (C.B.D.): The common bile duct measures 3.7 mm. Pancreas: Normal size of the head, body and tail of the pancreas. There is normal echogenicity of the pancreas. There is no demonstrated pancreatic mass or cyst. Right Kidney: Normal size of the right kidney. The right kidney measures 11.4 cm x 5.7 cm x 4.7 cm. Normal renal cortex. The right cortex measures 1.7 cm. There is a 1.5 cm x 1.3 cm x 1.1 cm cyst. There is no right hydronephrosis. US/Liver IMPRESSION: Fatty infiltration of the liver. Stable 1.7 cm x 2.2 cm x 1.3 cm hypoechoic nodule in the left lobe of the liver. This may represent an hemangioma. Electronically Signed: Jacob Hagan, at 9:01 EST , Service support ,
== END ==
PROVIDERS: Family Provider Internal Medicine; PCP Internal Medicine; Referring Provider Internal Medicine; Visit Provider Internal Medicine
DX: K76.0 Fatty (change of) liver, not elsewhere classified (principal)
CPT/HCPCS: 76705

== ENCOUNTER → 2019-05-08 14:57 | Outpatient (CLI) | payer BC, SELFPAY ==
[2019-05-08 11:45] VITALS: BMI 43.8
[2019-05-08 14:59] LABS: Bacteria 0 SEEN /hpf (None Seen); Mucous, Urine 0 SEEN /hpf (<or=2+); Red Blood Cells-Urine 0 SEEN /hpf (0-5)
[2019-05-08 15:02] LABS: Color, Urine Yellow (Yellow); Glucose, Dipstick Normal (Normal); Ketone-Dipstick Negative (Negative); Leukocyte Esterase-Dipstick 500 /ul (Negative); Nitrite-Dipstick Negative (Negative); Occult Blood-Urine 25 /ul (Negative); Protein-Dipstick 30 mg/dl (Negative); Specific Gravity, Urine 1.015 (1.002-1.030); Urine Bilirubin Dipstick Negative (Negative); Urine Clarity Sl. Cloudy (Clear); Urine Urobilinogen Normal (Normal)
[2019-05-08 15:15] LABS: Squamous Epithelial Cells - UA 0-5 SEEN /hpf (5-10); White Blood Cells >100 SEEN /hpf (0-5)
== END ==
PROVIDERS: PCP Internal Medicine; Referring Provider Nurse Practitioner Family; Visit Provider Nurse Practitioner Family
DX: R30.0 Dysuria (principal)
CPT/HCPCS: 81001; 87086; 87088

== ENCOUNTER → 2019-05-18 10:54 | Outpatient (CLI) | payer BC, SELFPAY ==
[2019-05-08 11:45] VITALS: BMI 43.8
[2019-05-18 11:35] LABS: Erythrocyte Sedimentation Rate 18 mm/hr (0-30)
[2019-05-18 11:37] LABS: Absolute Lymphocyte Count 2.28 X10^3/uL (0.83-4.51); Absolute Neutrophil Count 5.5 X10^3/uL (2.0-7.7); Basophil# 0.06 X10^3/uL; Basophil% 0.7 % (0-1); Eosinophil# 0.16 X10^3/uL; Eosinophils% 1.9 % (0-5); Hematocrit 46.5 % (37-47); Hemoglobin 15.5 g/dL (12.0-15.0); Lymphocyte # 2.28 X10^3/ul (4.0); Lymphocyte % 26.6 % (19-41); Mean Corp Hgb Conc 33.3 g/dL (32-36); Mean Corpuscular Hgb 27.5 pg (27.0-32.0); Mean Corpuscular Volume 82.4 fL (81-99); Monocyte# 0.52 X10^3/uL; Monocyte% 6.1 % (0-10); NRBC Flagged by Analyzer 0 % (0-5); Neutrophil # 5.51 X10^3/uL (2.7-7.7); Neutrophil % 64.3 % (47-70); Platelet Count 332 K/mm3 (150-450); RBC Distribution Width CV 12.9 % (11.6-14.6); RBC Distribution Width SD 38.6 fl (35.1-43.9); Red Blood Count 5.64 M/mm3 (4.2-5.4); White Blood Count 8.6 K/mm3 (4.4-11.0)
== END ==
PROVIDERS: PCP Internal Medicine; Referring Provider Physician Assistant Surgical; Visit Provider Physician Assistant Surgical
DX: Z96.652 Presence of left artificial knee joint (principal)
CPT/HCPCS: 36415; 85025; 85652; 86140

== ENCOUNTER 2019-08-12 14:47 | Emergency (ER) | payer BC, SELFPAY ==
[2019-05-08 11:45] VITALS: BMI 43.8
[2019-08-12 14:48] VITALS: BP 165/114; PULSE 80; RESP 16; TEMP 36.6; O2SAT 98; BMI 44.2
--- NOTE | 2019-08-12 15:00 | ED.DCSUM_ITS ---
History of Present Illness Chief Complaint: Fall Informant: Patient Onset: Today Mechanism/Context: Blunt Injury, Fall Quality of Pain: Dull, Aching Location: Lateral right ankle Current Severity: Mild Maximum Severity: Moderate Worsened by: Movement and weightbearing Relieved by: Elevate and rest Associated Symptoms: Negative for: Parasthesias, Weakness, Loss of function, Inability to ambulate, Loss of consciousness, Amnesia Length of loss of consciousness: Not applicable Narrative: Patient is a 63-year-old woman who lost her footing going down the steps. She fell the last 2-3 steps. She presents because of injury to the dorsum of the right hand and anterior right leg as well as right ankle. Tetanus needs updated. She denies head trauma. She denies visual, ocular auditory symptoms. She denies neck pain. She denies paresthesia, anesthesia motor is present at time of the fall. She denies chest pain or shortness of breath. She denies abdominal pain. She denies low back pain. She denies pain in her pelvis or knees. She is not on an anticoagulant. She is not diabetic. Tetanus Immunization: >10 years Prior similar symptoms: No Recent Illness/Hospitalization: No - Past Medical History (1) A-fib Status: Acute (2) Sleep apnea Status: Acute (3) Hypertension Status: Chronic Past Medical History - Allergies and Home Meds Allergies/Adverse Reactions: Allergies No Known Allergies Allergy (Verified 08/12/19 14:50) Primary Care Physician: Candida Demarco DO [Primary Care Provider] - Prior records reviewed: Yes Surgical History: noncontributory, - Lives: Alone Smoking Status: Never smoker Alcohol: None Drugs: None Review of Systems General: Denies: Malaise, Sweats Eyes: Denies: Visual changes - bilaterally, Blurred Vision - bilaterally ENT: Denies: Rhinorrhea, Sore throat Cardiovascular: Denies: Chest pain, Palpitations Respiratory: Denies: Dyspnea, Cough, Dyspnea on exertion Gastrointestinal: Denies: Abdominal pain, Nausea, Vomiting Musculoskeletal: Reports: Myalgias, Extremity Pain. Denies: Arthralgias, Neck pain, Back pain, Swelling Skin: Reports: Abrasions, Wounds Neurological: Denies: Headache, Weakness, Parasthesia Hematologic: Denies: Easy bruising, Easy bleeding Physical Exam Vital Signs/Narrative: Vital Signs Temp Pulse Resp BP Pulse Ox 08/12/19 14:48 97.8 F 80 16 165/114 H 98 Inital Vital Signs reviewed: Yes General: Well nourished, Well developed, Obese Head: Normocephalic, Atraumatic. Negative for: Trauma, Tenderness Eyes: Perrl, EOMI. Negative for: Pale conjunctiva, Scleral icterus ENT: TM's clear, No hemotympanum or drainage, No trauma, - - Negative pete sign or raccoon sign.. Negative for: Hemotympanum, Nasal trauma, Nasal septal hematoma Neck: Nontender, Full ROM. Negative for: Spinal Tenderness, Paraspinal Tenderness Cardiovascular: Regular rate, Regular rhythm, No murmurs, Normal S1, Normal S2 Respiratory: No distress, CTA bilaterally, Chest nontender Abdomen: Soft, Nontender, Nondistended, Normal bowel sounds Back: Nontender Extremeties: There is swelling and discoloration over the lateral malleolus with pain ovation of the lateral malleolus. There are 3 large skin tears anterior right leg. Plan is to clean and apply appropriate dressing. There is no laxity with anterior drawer test of the right ankle. DP and PT pulse are palpable. There is no pain to palpation of the base of the fifth metatarsal. there is also a skin tear dorsum of the right hand. There is no pain the patient over the carpal bones, metacarpal bones or phalanges of the right hand. The extensor indices, extensor commonness and extensor minimize tendon are functionally intact. There is no subungual hematoma noted. Sensation and digits is intact. Capillary refill is normal. Skin: Normal color, No rash Neurological: Alert, Oriented x3, Cranial nerves II-XII grossly intact, Normal Strength, Normal Sensation Psychological: Normal affect - Glascow Coma Scale Eye Opening: Spontaneous Motor: Obeys Commands Verbal: Oriented Coma Scale Total: 15 Diagnostic/Tx/Re-eval Impressions Ankle X-Ray 08/12/19 15:22 IMPRESSION: There are heterogeneous areas of osteosclerosis in the tibia and fibula may represent metastatic disease further evaluation by CT scan would be helpful. Electronically Signed: Verónica Fermin, at 15:39 EDT Tel , Service support , 08/12/19 15:22 Ankle min 3 Views [RAD] Stat 08/12/19 16:11 CT Lower [Extremity Lower without Contra] [CT] Stat X-rays revealed no fracture. The ossicle sclerotic changes were noted. Based on radiologist interpretation CT of the lower extremities was ordered. Patient was informed why a CAT scan of her lower extremities was ordered. Impressions Ankle X-Ray 08/12/19 15:22 IMPRESSION: There are heterogeneous areas of osteosclerosis in the tibia and fibula may represent metastatic disease further evaluation by CT scan would be helpful. Electronically Signed: Verónica Fermin, at 15:39 EDT Tel , Service support , Lower Extremity CT 08/12/19 16:11 IMPRESSION: 1. Benign bony infarcts of the tibia 2. No acute fracture. 3. Moderate subcutaneous edema and some high density hemorrhage is seen in the anterior medial aspect of the lower leg/ankle junction compatible with posttraumatic changes. Electronically Signed: Luis Garcia MD at 17:12 EDT , Service support , 08/12/19 15:22 Ankle min 3 Views [RAD] Stat 08/12/19 16:11 CT Lower [Extremity Lower without Contra] [CT] Stat - Medical Decision Making Care for skin tears on the dorsum of the right hand and anterior right leg. X- ray to evaluate for sprain versus fracture right wrist. Tetanus was updated. Since CAT scan revealed benign infarcts of the bone will discharge to home with air splint and appropriate analgesia. 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
--- NOTE | 2019-08-12 15:22 | RAD_ITS ---
STUDY: X-RAY - RIGHT ANKLE REASON FOR EXAM: Female, 63 years old. PAIN S/P FALLING DOWN WET STAIRS TECHNIQUE: 3 view(s) of the ankle. COMPARISON: None. FINDINGS: There are heterogeneous areas of osteosclerosis in the tibia and fibula may represent metastatic disease further evaluation by CT scan would be helpful. Normal medial and lateral malleoli. Normal tibiotalar articulation and ankle mortise. Normal visualized talus and calcaneus. The visualized subtalar, talonavicular, calcaneocuboid and tarsal articulations are normal. The soft tissue structures are unremarkable. RAD/Ankle min 3 Views IMPRESSION: There are heterogeneous areas of osteosclerosis in the tibia and fibula may represent metastatic disease further evaluation by CT scan would be helpful. Electronically Signed: Verónica Fermin, at 15:39 EDT Tel , Service support ,
[2019-08-12] MEDS: Diphth,Pertuss(Acell),Tet Vac 0.5 ML Vial IM (15:46)
--- NOTE | 2019-08-12 16:11 | CT_ITS ---
STUDY: CT RIGHT TIBIA AND FIBULA WITHOUT CONTRAST REASON FOR EXAM: Female, 63 years old. FALL, RT TIB/FIB INJURY RADIATION DOSAGE (If Supplied By Facility): CTDIvol = ( 15.35 ) mGy, DLP = ( 772.08 ) mGycm TECHNIQUE: Transaxial CT imaging of the tibia and fibula was performed post contrast administration. Sagittal and coronal recon''s were included. COMPARISON: Right ankle x-ray dated August 12, 2019 FINDINGS: Benign bone infarcts are present throughout the tibial shaft. No fracture or displacement is seen. No cortical erosion is present. A small focus of mature periosteal reaction is present along the posterior cortex and proximal one third aspect of the tibia. No aggressive lytic or blastic lesion is present. There is moderate to significant narrowing in the medial compartment. The lateral compartment spaces preserved. The patellofemoral compartment space is moderately narrowed. Small cortical osteophytes are present in the medial and patellofemoral compartments. The muscles are unremarkable. Moderate subcutaneous edema and some high density hemorrhage is seen in the anterior medial aspect of the lower leg/ankle junction compatible with posttraumatic changes. Mild subcutaneous edema is also present in the posterior aspect of the Achilles tendon. A small to moderate size knee joint effusion is present. CT/Extremity Lower without Contra IMPRESSION: 1. Benign bony infarcts of the tibia 2. No acute fracture. 3. Moderate subcutaneous edema and some high density hemorrhage is seen in the anterior medial aspect of the lower leg/ankle junction compatible with posttraumatic changes. Electronically Signed: Luis Garcia MD at 17:12 EDT , Service support ,
[2019-08-12 18:13] VITALS: BP 148/92; PULSE 84; RESP 17; O2SAT 97
== END 2019-08-12 18:15 | disposition home or self-care (01) ==
PROVIDERS: Emergency Provider Emergency Medicine; PCP Internal Medicine
DX: S61.411A Laceration without foreign body of right hand, initial encounter (principal); S81.811A Laceration without foreign body, right lower leg, initial encounter; S93.491A Sprain of other ligament of right ankle, initial encounter; W10.9XXA Fall (on) (from) unspecified stairs and steps, initial encounter; Y92.9 Unspecified place or not applicable; Y99.9 Unspecified external cause status; I10 Essential (primary) hypertension; Z23 Encounter for immunization
CPT/HCPCS: 73610; 73700; 90471; 90715; 99284

== ENCOUNTER → 2019-08-19 14:25 | Outpatient (CLI) | payer BC, SELFPAY ==
[2019-08-12 14:48] VITALS: BMI 44.2
--- NOTE | 2019-08-19 14:29 | VDLE_ITS ---
Reason For Study: Swelling RIGHT LEFT GSV is normal. CFV is compressible, spontaneous, phasic, CFV is compressible, spontaneous, phasic, competent, and demonstrates normal competent and demonstrates normal augmentation. augmentation. FV is compressible, spontaneous, phasic, competent and demonstrates normal augmentation. POP V is compressible, spontaneous, phasic, competent and demonstrates normal augmentation. T/P Trunk is compressible. PTV is compressible. RT PerV is compressible. Procedure Exam performed in department. A preliminary report was called and/or faxed to Dav. Interpretation Summary Deep veins of the right lower extremity are patent and compressible segmentally. There is no evidence of right lower extremity deep vein thrombosis. Valvular competence appears intact within the proximal deep venous system on the right . The right great saphenous vein appears patent and compressible segmentally. Ordering Physician: Candida Demarco Referring Physician: Candida Demarco Performed By: Vita Tilley RVT
== END ==
PROVIDERS: PCP Internal Medicine; Referring Provider Internal Medicine; Visit Provider Internal Medicine
DX: M79.89 Other specified soft tissue disorders (principal)
CPT/HCPCS: 93971

== ENCOUNTER → 2019-08-29 13:14 | Outpatient (CLI) | payer BC, SELFPAY ==
[2019-08-12 14:48] VITALS: BMI 44.2
--- NOTE | 2019-08-29 13:35 | MRI_ITS ---
PROCEDURE: MRI LOWER EXTREMITY RIGHT TIBIA/FIBULA REASON FOR EXAM: Right anterior tibial pain after a fall. TECHNIQUE: Standardized fat and water weighted pulse sequences were obtained in all 3 orthogonal planes. COMPARISON: MRI images 05/21/2012 and radiographs 05/17/2012. FINDINGS: There are multiple bone infarcts of the right tibia and fibula (T2 coronal images 13, 19-22) as on the previous study. There is a nondisplaced fracture of the posterior malleolus (T1 sagittal image 20) with bone edema, not visualized on the prior study. There are also bone infarcts in the contralateral left tibia and fibula also demonstrated on the prior study. Normal anterior, lateral, and posterior calf compartments, with normal muscles, crural fascia and intermuscular septa. There is edema in the subcutis adipose space. There is no solid, cystic or lipomatous mass lesion of the subcutis adipose space. MRI/Lower Ext/No Jt/w/o IMPRESSION: Nondisplaced fracture of the posterior malleolus with bone edema suggesting recent fracture. Multiple bone infarcts of the tibia and fibula as on the prior study. Electronically Signed: Agus Swan MD at 10:44 EDT Tel , Service support ,
--- NOTE | 2019-08-29 14:11 | MRI_ITS ---
STUDY: MRI RIGHT ANKLE WITHOUT CONTRAST REASON FOR EXAM: Medial ankle pain after a fall. TECHNIQUE: Standardized fat and water weighted pulse sequences were obtained in all 3 orthogonal planes. COMPARISON: CT images 08/12/2019, radiographs 08/12/2019. FINDINGS: There is edema in the subcutis adipose space. Normal posterior tibialis tendon. Normal flexor digitorum longus tendon. Normal flexor hallucis longus tendon. Normal peroneus longus and brevis tendons. Normal tibialis anterior tendon. Normal extensor hallucis longus tendon. Normal extensor digitorum longus tendons. Normal Achilles tendon and teno-osseous insertion. There is edema in Kager''s fat triangle (inversion recovery sagittal images 9-12) Normal plantar fascia. There is a bone infarct in the body/posterior tuberosity of the calcaneus (T1 sagittal image 9). There is atrophy with partial fat replacement of the abductor digiti minimi muscle (T1 sagittal image 9). Normal distal tibiofibular syndesmotic ligamentous complex. There is a mild sprain of the anterior talofibular ligament (inversion recovery axial oblique image 14). Normal calcaneofibular and posterior talofibular ligaments. Normal subtalar ligaments and sinus tarsi. There is a mild sprain of the deltoid ligament (T2 coronal images 15, 16). There is a mild bone contusion of the medial malleolus (T2 coronal image 15). Normal plantar calcaneonavicular (spring) ligament. Normal tibiotalar articulation. Normal talar dome. There is a nondisplaced fracture of the posterior malleolus (T1 sagittal 9-11) with associated bone edema. There is a small posterior subtalar joint effusion (inversion recovery sagittal images 7-10). There is an os trigonum. Normal talonavicular articulation. Normal calcaneocuboid articulation. Normal navicular-cuneiform articulations. There is a bone contusion of the lateral cuneiform (inversion recovery axial oblique image 15). There are bone infarcts in the distal tibia (T1 sagittal images 9-12) and distal fibula (T1 sagittal images 4, 5). MRI/Lower Ext Joint Only (Routine) IMPRESSION: Mild sprain of the deltoid ligament and mild bone contusion of the medial malleolus. Mild sprain of the anterior talofibular ligament. Nondisplaced fracture of the posterior malleolus with bone edema suggesting recent fracture. Bone contusion of the lateral cuneiform. Bone infarcts in the distal tibia, distal fibula and calcaneus. Edema in Kager''s fat triangle. Small posterior subtalar joint effusion. Atrophy of the abductor digiti minimi muscle.. Electronically Signed: Agus Swan MD at 10:45 EDT Tel , Service support ,
== END ==
PROVIDERS: PCP Internal Medicine; Referring Provider Internal Medicine; Visit Provider Internal Medicine
DX: M79.604 Pain in right leg (principal)
CPT/HCPCS: 73718; 73721

== ENCOUNTER → 2019-11-08 07:38 | Outpatient (CLI) | payer BC, SELFPAY ==
--- NOTE | 2019-11-08 07:42 | BI_ITS ---
MAMMOGRAPHY - BILATERAL SCREENING 3-D TOMOSYNTHESIS REASON FOR EXAM: Female, 63 years old. Screening mammogram. PERTINENT HISTORY: Family history of breast cancer in sister in her third decade. History of fall with bruising breast. TECHNIQUE: 2-D mammograms and 3-D Tomosynthesis of the breast (s) were performed. CAD was performed. COMPARISON: 09/07/2018, 10/06/2017 FINDINGS: The breast composition is almost entirely fat. Scattered benign calcifications are seen. No dense spiculated masses or suspicious microcalcifications are identified. No architectural distortion is identified. There is no skin thickening or retraction. There has been no significant change since the prior study. BI/SCREEN MAMM (CAD) W/ESAU BILAT IMPRESSION: No mammographic signs of malignancy. Routine yearly mammograms recommended. ASSESSMENT CATEGORY: BIRADS Category 2: Benign. A letter regarding these results will be sent to the patient by the facility within 30 days. FOLLOW UP RECOMMENDATION: Yearly follow up mammogram recommended. (A) Approximately 10% of breast cancers are not detected by mammography. A normal mammogram should not delay biopsy of a clinically suspicious abnormality. Electronically Signed: Bony Lam MD at 17:23 EDT , Service support ,
--- NOTE | 2019-11-08 07:44 | US_ITS ---
STUDY: THYROID ULTRASOUND REASON FOR EXAM: Female, 63 years old. Thyroid nodules TECHNIQUE: Ultrasound evaluation of the thyroid was performed with real-time and static arteaga-scale imaging. COMPARISON: 08/23/18 FINDINGS: RIGHT LOBE: The right lobe of the thyroid gland measures 4.4 x 2.2 x 1.4 cm. There is a homogeneous echotexture. There is a 0.9 x 0.6 cm solid nodule in the midportion of the right lobe. This is not significantly changed when compared with the prior exam. There are no new nodules are identified in the right lobe. LEFT LOBE: The left lobe of the thyroid gland measures 4.3 x 1.9 x 1.4 cm. There is a homogeneous echotexture. There is a 0.9 x 0.7 cm cystic nodule in the upper pole and a 0.8 x 0.6 cm complex nodule in the midportion. These are not significantly changed when compared with the prior exam. There are no new nodules. ISTHMUS: The isthmus measures 2 mm. The regional lymph nodes are normal. US/Thyroid IMPRESSION: No significant change in the previously seen bilateral thyroid nodules. No new nodules. Electronically Signed: Roberto Rios, at 17:13 EDT Tel , Service support ,
== END ==
PROVIDERS: PCP Internal Medicine; Referring Provider Internal Medicine; Visit Provider Internal Medicine
DX: Z12.31 Encounter for screening mammogram for malignant neoplasm of breast (principal); E04.1 Nontoxic single thyroid nodule; Z80.3 Family history of malignant neoplasm of breast
CPT/HCPCS: 76536; 77063; 77067

== ENCOUNTER → 2020-02-22 11:33 | Outpatient (CLI) | payer BC, SELFPAY ==
--- NOTE | 2020-02-22 11:37 | CT_ITS ---
STUDY: CT BRAIN WITH AND WITHOUT CONTRAST REASON FOR EXAM: Female, 64 years old. Left facial parasthenia, hypertension, Afib. RADIATION DOSAGE (If Supplied By Facility): CTDIvol = ( 44.99 ) mGy, DLP = ( 1580.97 ) mGycm TECHNIQUE: Transaxial CT imaging of the brain was performed pre and post contrast administration. The examination was performed with intravenous administration of IV 50mL Isovue-370. Individualized dose optimization techniques were used for this CT. COMPARISON: Comparison is made with prior study dated 04/06/2017. FINDINGS: Normal soft tissue structures. Normal calvarium. Normal size ventricles and extra-axial spaces for the patient''s age. Normal white matter tracts of the cerebral hemispheres. Normal basal ganglia and thalami. Normal brainstem. Normal cerebellum. There is no intracranial hemorrhage. There are no findings of an acute ischemic infarction. Normal visualized paranasal sinuses. CT/Brain/Head W/WO Contrast IMPRESSION: Normal unenhanced and enhanced CT scan of the brain. Electronically Signed: Jacob Hagan, at 12:34 EST , Service support ,
[2020-02-22 11:51] LABS: CREATININE FINGERSTICK 0.7 mg/dL (0.55-1.02)
[2020-02-22 12:21] LABS: Absolute Neutrophil Count 7.7 X10^3/uL (2.0-7.7); Basophil# 0.07 X10^3/uL; Basophil% 0.7 % (0-1); Eosinophil# 0.13 X10^3/uL; Eosinophils% 1.2 % (0-5); Hemoglobin 15.2 g/dL (12.0-15.0); Lymphocyte % 20.5 % (19-41); Mean Corp Hgb Conc 32.3 g/dL (32-36); Mean Corpuscular Hgb 28.3 pg (27.0-32.0); Mean Corpuscular Volume 87.5 fL (81-99); Monocyte# 0.58 X10^3/uL; Monocyte% 5.4 % (0-10); NRBC Flagged by Analyzer 0 % (0-5); Neutrophil # 7.68 X10^3/uL (2.7-7.7); Neutrophil % 71.6 % (47-70); Platelet Count 291 K/mm3 (150-450); RBC Distribution Width CV 13.2 % (11.6-14.6); RBC Distribution Width SD 42.3 fl (35.1-43.9); Red Blood Count 5.37 M/mm3 (4.2-5.4); White Blood Count 10.7 K/mm3 (4.4-11.0)
[2020-02-22 12:42] LABS: Erythrocyte Sedimentation Rate 14 mm/hr (0-30)
[2020-02-22 12:45] LABS: AST(SGOT) 12 U/L (15-37); Alanine Aminotransfer ALT/SGPT 23 U/L (13-56); Albumin, Serum 3.7 g/dL (3.2-5.0); Alkaline Phosphatase 96 U/L (45-117); Anion Gap 6 (5-15); BUN 20 mg/dL (7-18); BUN/Creat Ratio 26.1 RATIO (10-20); Calcium,Total 9.2 mg/dL (8.5-10.1); Chloride 107 mmol/L (98-107); Creatinine, Serum 0.77 mg/dL (0.55-1.02); EST Glomerular Filtration Rate 81 mL/min (>60); Est Glom Filt Rate - Afr Amer 98 mL/min (>60); Globulin 3.6 g/dL (2.2-4.2); Glucose 98 mg/dL (74-106); Protein, Total 7.3 g/dL (6.4-8.2); Sodium Level 138 mmol/L (136-145)
[2020-02-22 12:57] LABS: Vitamin B12 539 pg/mL (211-911)
== END ==
PROVIDERS: PCP Internal Medicine; Referring Provider Internal Medicine; Visit Provider Internal Medicine
DX: R20.2 Paresthesia of skin (principal); E53.8 Deficiency of other specified B group vitamins
CPT/HCPCS: 36415; 70470; 80053; 82607; 85025; 85652; Q9967

== ENCOUNTER 2020-04-14 08:09 | Outpatient (CLI) | payer BC, SELFPAY ==
[2020-04-14 08:05] VITALS: BP 129/72; PULSE 76; RESP 18; TEMP 35.4; O2SAT 96
[2020-04-14 08:45] VITALS: BP 129/72; PULSE 82; RESP 18; TEMP 35.4; O2SAT 96; BMI 46.0
[2020-04-14] MEDS: 0.9% Saline Lock 10 ML Syringe IV (09:10)
[2020-04-14 09:32] VITALS: BP 139/97; PULSE 79; RESP 18; TEMP 35.7; O2SAT 97
[2020-04-14 10:05] VITALS: BP 118/76; PULSE 76; RESP 18; TEMP 35.4; O2SAT 97
[2020-04-14 10:40] VITALS: BP 90/50; PULSE 69; RESP 18; TEMP 35.7; O2SAT 98
[2020-04-14 10:59] VITALS: BP 116/93; PULSE 80; RESP 18; TEMP 35.6; O2SAT 98
== END 2020-04-14 11:12 | disposition home or self-care (01) ==
LOC: MS2OUT 08:10 → MS2 08:11
PROVIDERS: PCP Internal Medicine; Referring Provider Nurse Practitioner Acute Care; Visit Provider Nurse Practitioner Acute Care
DX: U07.1 COVID-19 (principal)
CPT/HCPCS: J7050; M0239; Q0239; A4216

== ENCOUNTER 2020-04-14 18:07 | Emergency (ER) | payer BC, SELFPAY ==
[2020-04-14 08:45] VITALS: BMI 46.0
[2020-04-14 18:09] VITALS: BP 148/94; PULSE 101; RESP 20; TEMP 36.6; O2SAT 96; BMI 46.5
--- NOTE | 2020-04-14 18:25 | RAD_ITS ---
STUDY: X-RAY CHEST REASON FOR EXAM: Female, 64 years old. HYPOTENSION AND LOW SPO2 S/P HAVING COVID MONOCLONAL ANTIBODY INFUSION TODAY TECHNIQUE: Frontal view of the chest COMPARISON: 23 January 2019 FINDINGS: Examination is technically suboptimal due to patient''s large body habitus. Lung parenchyma is normal well seen. There is no pneumothorax, cardiomegaly or pleural effusions. There is possibly mild pulmonary edema versus artifactual appearance. There are no nodular or regional opacities. Interstitium is not well seen. Osseous structures are intact. RAD/Chest 1 View (Portable) IMPRESSION: 1. Limited negative chest radiograph, possibly artifact versus mild pulmonary edema. 2. Recommend repeating when patient''s condition improves with optimal inspiratory effort upright standing frontal and lateral views. Electronically Signed: Holli Briseno MD at 19:15 EST Tel , Service support ,
--- NOTE | 2020-04-14 18:25 | ED.DCSUM_ITS ---
- ER Visit Summary Date of Service: 04/14/20 Chief Complaint: Shortness of breath and low blood pressure History of Present Illness: The patient is a [address] Demarco. She reports that her tested positive for Covid. On April 07 she felt very lightheaded, had chills, headache, myalgias, vomiting and diarrhea. She tested positive on April 12. She got monoclonal antibody today at 8 AM which finished at 11 AM. She reports that she felt well when she left. However, patient reports that this evening she checked her blood pressure and it was 89/66. States that she usually runs 112 systolic. She checked her pulse ox and that was low as well so she came to emergency department for evaluation. Patient reports that she does continue to experience chills. She still has a nonproductive cough with that is occasional with mild shortness of breath. She complains of myalgias and back pain. She took ibuprofen prior to arrival and that resolved. She denies any rash, headache, numbness, or weakness. Patient denies any chest pain. She denies any calf pain or ankle swelling. Physical Examination: Vitals: Stable. Afebrile. General: Well-nourished and well-developed. Head: Normocephalic atraumatic. Neck: Supple, no lymphadenopathy. No JVD. Nontender. Cardiovascular: Tachycardic regular rhythm with a 2 out of 6 systolic murmur. Respiratory: No respiratory distress. Clear to auscultation bilaterally. Abdominal: Soft, nontender, nondistended, normal bowel sounds. No guarding, rebound, or peritoneal signs. Back: Nontender. Extremities: Nontender, no edema. Skin: Normal color, no rash. Neurologic: Alert and oriented ?3. Cranial nerves II through XII are intact. Normal strength and sensation. Psych: Normal affect. Test Results: EKG is sinus at 96 with PVCs. CBC shows segmented neutrophils 71 lymphs is 13. Chem-7 shows sodium 135 and glucose 108. D-dimer is 0.62 which is negative when corrected for her age of 64. Emergency Department Course and Treatment: Patient is resting comfortably. Ambulatory pulse ox is 93% on room air. Initial blood pressure was 148/94. Repeat blood pressure is 147/46. Treatment Plan: Patient will be discharged instructions to continue to quarantine. Keep an eye on her pulse ox. Follow-up with her primary care physician in 1 week if not improving. Return to the emergency department for any worsening symptoms. Disposition: To home in improved and stable condition. Impression: 1. COVID-19 infection. This note was generated with [employer] dictation software. It may contain incorrect words, spelling, and punctuation that were not noted in review of the chart prior to signing ED Disposition - Plan for ED Patient: Instructions: Coronavirus Disease 2019 (COVID-19): Overview Referrals: Fast,Candida, DO [Primary Care Provider] - 1 Week if not improving
--- NOTE | 2020-04-14 18:27 | EKG12_ITS ---
Test Reason : GEN ILL Blood Pressure : / mmHG Vent. Rate : 096 BPM Atrial Rate : 096 BPM P-R Int : 174 ms QRS Dur : 080 ms QT Int : 342 ms P-R-T Axes : 050 011 037 degrees QTc Int : 432 ms Sinus rhythm with occasional Premature ventricular complexes Otherwise normal ECG Confirmed by SAMIM FOX, TATO ([id number]), image editor ROSALIND PADGETT ([id number]) on 04/17/2020 10:30:30 AM Referred By: CANDI Confirmed By:TATO CHAPA MD
[2020-04-14 18:45] LABS: Absolute Lymphocyte Count 0.77 X10^3/uL (0.83-4.51); Absolute Neutrophil Count 4.7 X10^3/uL (2.0-7.7); Basophil# 0.02 X10^3/uL; Basophil% 0.3 % (0-1); Hematocrit 43.4 % (37-47); Hemoglobin 14.4 g/dL (12.0-15.0); Lymphocyte # 0.77 X10^3/ul (4.0); Lymphocyte % 12.9 % (19-41); Mean Corp Hgb Conc 33.2 g/dL (32-36); Mean Corpuscular Hgb 27.8 pg (27.0-32.0); Mean Corpuscular Volume 83.8 fL (81-99); Mean Platelet Vol. 9.8 fl (6.2-12.0); Monocyte# 0.42 X10^3/uL; Monocyte% 7.1 % (0-10); NRBC Flagged by Analyzer 0 % (0-5); Neutrophil # 4.71 X10^3/uL (2.7-7.7); Neutrophil % 79.2 % (47-70); Platelet Count 200 K/mm3 (150-450); RBC Distribution Width CV 12.6 % (11.6-14.6); RBC Distribution Width SD 38.5 fl (35.1-43.9); Red Blood Count 5.18 M/mm3 (4.2-5.4)
[2020-04-14 18:59] LABS: Anion Gap 7 (5-15); BUN 16 mg/dL (7-18); BUN/Creat Ratio 18.5 RATIO (10-20); Calcium,Total 8.6 mg/dL (8.5-10.1); Chloride 104 mmol/L (98-107); Creatinine, Serum 0.86 mg/dL (0.55-1.02); EST Glomerular Filtration Rate 70 mL/min (>60); Est Glom Filt Rate - Afr Amer 85 mL/min (>60); Estimated Creatinine Clearance 55.39 ml/min; Glucose 108 mg/dL (74-106); Potassium 3.7 mmol/L (3.5-5.1); Sodium Level 135 mmol/L (136-145)
[2020-04-14 19:05] VITALS: O2SAT 94
[2020-04-14 19:15] LABS: D-Dimer Quantitative (DVT/PE) 0.62 FEU/ug/m (0.27-0.49)
[2020-04-14 20:08] VITALS: BP 158/81; PULSE 92; RESP 20; O2SAT 95
== END 2020-04-14 20:27 | disposition home or self-care (01) ==
LOC: ED 18:51
PROVIDERS: Emergency Provider Emergency Medicine; PCP Internal Medicine
DX: U07.1 COVID-19 (principal); I10 Essential (primary) hypertension; K21.9 Gastro-esophageal reflux disease without esophagitis; G47.33 Obstructive sleep apnea (adult) (pediatric); I48.91 Unspecified atrial fibrillation; Z82.49 Family history of ischemic heart disease and other diseases of the circulatory system
CPT/HCPCS: 71045; 80048; 85025; 85379; 93005; 99284; A4216

== ENCOUNTER → 2020-05-21 07:54 | Outpatient (CLI) | payer BC, SELFPAY ==
--- NOTE | 2020-05-21 07:56 | US_ITS ---
STUDY: ABDOMINAL ULTRASOUND - RIGHT UPPER QUADRANT REASON FOR VISIT: Female, 64 years old Mixed hyperlipidemia TECHNIQUE: Ultrasound evaluation of the right upper quadrant was performed with real-time and static arteaga-scale imaging. TECHNICAL QUALITY: Adequate. COMPARISON: Comparison is made with prior examination dated 04/04/2019. FINDINGS: Liver: The liver is mildly enlarged and measures 18.9 cm. There is increased echogenicity consistent with fatty infiltration. The bile ducts are within normal limits. There is hepatic color flow. The direction of portal flow is hepatopetal. There is a 2.2 cm x 2.1 cm x 1.3 cm apple core nodule in the left lobe of the liver suggestive of a hemangioma. This is unchanged. Gallbladder: Normal distended gallbladder. The gallbladder wall measures 2.1 mm. There is a negative sonographic Cabrera''s sign. There is no pericholecystic fluid. There are no gallstones. Common Bile Duct (C.B.D.): The common bile duct measures 2.8 mm. Pancreas: Normal size of the head, body and tail of the pancreas. There is increased echogenicity of the pancreas. There is no demonstrated pancreatic mass or cyst. Right Kidney: Normal size of the right kidney. The right kidney measures 11.4 cm x 5.7 cm x 4.4 cm. Normal renal cortex. The right cortex measures 1.5 cm. There is a 1.9 cm x 1.7 cm x 1.4 cm renal cyst. There is no right hydronephrosis. US/Abdomen Limited IMPRESSION: Mild hepatomegaly and fatty infiltration of the liver. Findings suggestive of a stable hemangioma in the left lobe of the liver. Electronically Signed: Jacob Hagan MD at 10:13 EST , Service support ,
== END ==
PROVIDERS: PCP Internal Medicine; Referring Provider Internal Medicine; Visit Provider Internal Medicine
DX: E78.2 Mixed hyperlipidemia (principal)
CPT/HCPCS: 76705

== ENCOUNTER → 2020-07-23 11:48 | Outpatient (CLI) | payer BC, SELFPAY ==
[2020-07-23 12:02] LABS: Absolute Lymphocyte Count 1.74 X10^3/uL (0.83-4.51); Absolute Neutrophil Count 4.9 X10^3/uL (2.0-7.7); Basophil# 0.06 X10^3/uL; Basophil% 0.8 % (0-1); Eosinophil# 0.15 X10^3/uL; Hemoglobin 14.1 g/dL (12.0-15.0); Lymphocyte # 1.74 X10^3/ul (0.83-4.51); Lymphocyte % 23.6 % (19-41); Mean Corp Hgb Conc 32.8 g/dL (32-36); Mean Corpuscular Hgb 27.8 pg (27.0-32.0); Mean Corpuscular Volume 84.6 fL (81-99); Mean Platelet Vol. 10.5 fl (6.2-12.0); Monocyte# 0.49 X10^3/uL; Monocyte% 6.6 % (0-10); NRBC Flagged by Analyzer 0 % (0-5); Neutrophil # 4.91 X10^3/uL (2.7-7.7); Neutrophil % 66.6 % (47-70); Platelet Count 302 K/mm3 (150-450); RBC Distribution Width CV 12.5 % (11.6-14.6); RBC Distribution Width SD 38.3 fl (35.1-43.9); Red Blood Count 5.08 M/mm3 (4.2-5.4); White Blood Count 7.4 K/mm3 (4.4-11.0)
[2020-07-23 12:12] LABS: ALB/GLOB Ratio 1.1 RATIO (0.9-2.4); AST(SGOT) 8 U/L (15-37); Alanine Aminotransfer ALT/SGPT 20 U/L (13-56); Albumin, Serum 3.5 g/dL (3.2-5.0); Alkaline Phosphatase 73 U/L (45-117); Anion Gap 7 (5-15); BUN 21 mg/dL (7-18); BUN/Creat Ratio 22.3 RATIO (10-20); Calcium,Total 8.8 mg/dL (8.5-10.1); Chloride 110 mmol/L (98-107); Creatinine, Serum 0.94 mg/dL (0.55-1.02); EST Glomerular Filtration Rate 64 mL/min (>60); Est Glom Filt Rate - Afr Amer 77 mL/min (>60); Globulin 3.1 g/dL (2.2-4.2); Glucose 104 mg/dL (74-106); Lipase 52 U/L (73-393); Potassium 3.8 mmol/L (3.5-5.1); Protein, Total 6.6 g/dL (6.4-8.2); Sodium Level 144 mmol/L (136-145)
== END ==
PROVIDERS: PCP Internal Medicine; Visit Provider Internal Medicine
DX: R19.7 Diarrhea, unspecified (principal); R10.9 Unspecified abdominal pain
CPT/HCPCS: 80053; 83690; 85025

== ENCOUNTER → 2020-08-09 06:27 | Outpatient (CLI) | payer BC, SELFPAY ==
[2020-08-09 07:31] LABS: Absolute Lymphocyte Count 2.74 X10^3/uL (0.83-4.51); Absolute Neutrophil Count 3.5 X10^3/uL (2.0-7.7); Basophil# 0.05 X10^3/uL; Basophil% 0.7 % (0-1); Eosinophil# 0.19 X10^3/uL; Eosinophils% 2.7 % (0-5); Hematocrit 45.8 % (37-47); Hemoglobin 15.1 g/dL (12.0-15.0); Lymphocyte # 2.74 X10^3/ul (0.83-4.51); Lymphocyte % 39.4 % (19-41); Mean Corpuscular Hgb 28.2 pg (27.0-32.0); Mean Corpuscular Volume 85.4 fL (81-99); Mean Platelet Vol. 10.3 fl (6.2-12.0); Monocyte# 0.49 X10^3/uL; Monocyte% 7.1 % (0-10); NRBC Flagged by Analyzer 0 % (0-5); Neutrophil # 3.47 X10^3/uL (2.7-7.7); Platelet Count 270 K/mm3 (150-450); RBC Distribution Width CV 12.6 % (11.6-14.6); RBC Distribution Width SD 39.3 fl (35.1-43.9); Red Blood Count 5.36 M/mm3 (4.2-5.4)
[2020-08-09 07:58] LABS: ALB/GLOB Ratio 1.2 RATIO (0.9-2.4); AST(SGOT) 13 U/L (15-37); Alanine Aminotransfer ALT/SGPT 21 U/L (13-56); Albumin, Serum 3.7 g/dL (3.2-5.0); Alkaline Phosphatase 74 U/L (45-117); Anion Gap 8 (5-15); BUN 19 mg/dL (7-18); BUN/Creat Ratio 21.4 RATIO (10-20); Calcium,Total 9.1 mg/dL (8.5-10.1); Chloride 109 mmol/L (98-107); Creatinine, Serum 0.89 mg/dL (0.55-1.02); EST Glomerular Filtration Rate 68 mL/min (>60); Est Glom Filt Rate - Afr Amer 82 mL/min (>60); Globulin 3.2 g/dL (2.2-4.2); Glucose 90 mg/dL (74-106); Potassium 3.5 mmol/L (3.5-5.1); Protein, Total 6.9 g/dL (6.4-8.2); Sodium Level 143 mmol/L (136-145)
[2020-08-09 08:46] LABS: Hemoglobin A1c 5.9 % (3.8-5.6)
[2020-08-09 08:50] LABS: Vitamin D,25 Hydroxy 56.6 ng/mL
== END ==
PROVIDERS: PCP Internal Medicine; Referring Provider Internal Medicine; Visit Provider Internal Medicine
DX: E11.9 Type 2 diabetes mellitus without complications (principal); I10 Essential (primary) hypertension; E55.9 Vitamin D deficiency, unspecified
CPT/HCPCS: 36415; 80053; 82306; 83036; 85025

== ENCOUNTER 2020-09-26 08:30 | Outpatient (RCR) | payer BC, SELFPAY ==
--- NOTE | 2020-08-21 09:30 | HP.PTEVAL ---
Patient's Visit Information KVNG ROMERO is a 64 year old F referred to Physical Therapy by Dr. Candida Demarco DO with a diagnosis of PAIN RIGHT SCAPULAR ,LOW BACK PAIN. Date of Evaluation: 08/21/20 Physical Therapist: Ken Navarro, PT, Cert MDT, OCS - Visit Plan Frequency: 2x /Week Duration: 4 Weeks Plan: PT INTERVETIONS KEVYN EX'S,POSTURAL EX'S,DLS ABD/BACK,MANUAL THERAPY CERVICAL TRACTION ,AND MODALTIES TO INCLUDE ICTX NEEDED - Subjective This 64 y/o female presents to physical therapy with in right scapular and LBP. Patient has had right scapular pain since Mar 2020 and LBP about 1 month ago cleaning the barn . LBP located lateral hips and right scapular scapular .Seen DR Demarco recommended PT and had x-rays DDD in neck and back. Aggravated in right scapular symptoms not specific symptoms worse with nonspecific activity with radicular symptoms right. Alleviating factors rest . Denies PARKS ,dizziness, nausea. Pain affects sleeping. Low back pain aggravating factors bending ,lifting .walking, standing. Alleviating rest factors. C/O parathesia/tingling arm right. Coughing/sneezing -.bowel/bladder -.No abnormal night pain. Patient has had no prior treatment. Patient has had h/o trauma. No medication. Symptoms affects QOL and function. PMH: CTS RTC injury. VOCATION: retired - Pain Right Scapula Pain Intensity (Out of 10): 2 Pain Intensity Range: 10 Bilateral Back Pain Intensity (Out of 10): 2 Pain Intensity Range: 10 - Objective POSTURE: mild forward posture. NEURO: C/O parathesia/tingling right arm reflexes 2/3 C5-6-7. PALAPTION: right medial border of scapular. CERVICAL ROM: flexion min loss , lateral flexion, rotation mod loss pain in cervical spine right side, extension mod loss pain, right scapular ,. BUE: AROM WFL limited left due to h/o of RTC. LUMBAR ROM: flexion WFL ,extension min loss .side glides WFL. MMT: BUE 4/5 except left shoulder 4-/5. quads/hams 4/5,ankle 5/5,hip flexion 4-/5. FLEXABILITY: hams mild tight - Special Tests C/S Radiculapathy - Left Upper limb tension test: Negative C/S Radiculapathy - Right Upper limb tension test: Positive C/S Radiculapathy - Left Spurlings: Negative C/S Radiculapathy - Right Spurlings: Positive C/S Radiculapathy - Left Cervical distraction: Negative C/S Radiculapathy - Right Cervical distraction: Negative C/S Radiculapathy - Left Relief test: Negative Sharp Rehan: Negative Vertebral Artery Test: Negative Alar Ligament Test: Negative Cervical Sitting: Protrusion - Mechanical Response: No effect Cervical Sitting: Protrusion - Symptoms During Testing: Increases Cervical Sitting: Protrusion - Symptoms After Testing: No worse Cervical Sitting: Retraction - Mechanical Response: No effect Cervical Sitting: Retraction - Symptoms During Testing: Increases Cervical Sitting: Retraction - Symptoms After Testing: No worse Comments:: neck Cervical Sitting: Retraction-Extension - Mechanical Response: No effect Cerv Sitting: Retraction-Extension - Symptoms During Testing: Increases Cerv Sitting: Retraction-Extension - Symptoms After Testing: No worse Comments:: neck Cervical Sitting: Sidebend Right - Mechanical Response: No effect Cervical Sitting: Sidebend Right - Symptoms During Testing: Increases Cervical Sitting: Sidebend Right - Symptoms After Testing: Worse Cervical Sitting: Sidebend Left - Mechanical Response: No effect Cervical Sitting: Sidebend Left - Symptoms During Testing: No effect Cervical Sitting: Sidebend Left - Symptoms After Testing: No effect Cervical Sitting: Rotation Right - Mechanical Response: No effect Cervical Sitting: Rotation Right - Symptoms During Testing: Increases Cervical Sitting: Rotation Right - Symptoms After Testing: No worse Cervical Sitting: Rotation Left - Mechanical Response: No effect Cervical Sitting: Rotation Left - Symptoms During Testing: No effect Cervical Sitting: Rotation Left - Symptoms After Testing: No effect Cervical Sitting: Flexion - Mechanical Response: No effect Cervical Sitting: Flexion - Symptoms During Testing: No effect Cervical Sitting: Flexion - Symptoms After Testing: No effect L/S Slump test left side: Negative L/S Slump test right side: Negative L/S Left Straight Leg Raise: Negative L/S Right Straight Leg Raise: Negative Lumbar Standing: Flexion - Mechanical Response: No effect Lumbar Standing: Flexion - Symptoms During Testing: No effect Lumbar Standing: Flexion - Symptoms After Testing: No worse Lumbar Standing: Extension - Mechanical Response: No effect Lumbar Standing: Extension - Symptoms During Testing: Decreases Lumbar Standing: Extension - Symptoms After Testing: Better Lumbar Standing: Right Side Glides - Mechanical Response: No effect Lumbar Standing: Right Side [place] - Symptoms During Testing: No effect Lumbar Standing: Right Side [place] - Symptoms After Testing: No effect Lumbar Standing: Left Side [place] - Mechanical Response: No effect Lumbar Standing: Left Side [place] - Symptoms During Testing: No effect Lumbar Standing: Left Side [place] - Symptoms After Testing: No effect Lumbar Lying: Flexion - Mechanical Response: No effect Lumbar Lying: Flexion - Symptoms During Testing: Increases Lumbar Lying: Flexion - Symptoms After Testing: Worse Lumbar Lying: Extension - Mechanical Response: No effect Lumbar Lying: Extension - Symptoms During Testing: Abolishes Lumbar Lying: Extension - Symptoms After Testing: Worse - Goals Goal 1:: Patient to be I with HEP Goal Time Frame: 4-6 Weeks Goal 2:: Patient to decrease right scapular pain and radicular symptoms in right arm by 50% or> to imp[rove function. Goal Time Frame: 4-6 Weeks Goal 3:: Patient to improve lumbar and cervical ROM for function of recovery Goal Time Frame: 4-6 Weeks Goal 4:: Patient to improve ability with ADL's and housework tasks with min limitations Goal Time Frame: 4-6 Weeks Goal 5:: Patient to improve cervical owestry 5 ponts or > to improve QOL. Goal Time Frame: 4-6 Weeks - Rehabilitation Potential Physical Therapy Diagnosis: This patient has right scapular pain along with symptoms in right arm possible cervical disc and lumbar derangement with symptoms worse with flexion better with extension ,along with right cervical quadrant test right and worse with rotation and lateral flexion to right better with cervical traction manual thus benefit from skilled PT Rehabilitation Potential: Good - Anticipated Interventions Patient/Client Instruction: Educate patient on: Condition, Plan of Care For the Purpose of:: To decrease pain, To increase ROM, To improve muscle performance and motor function, To increase tolerance to activity/condition/position, To improve performance and independence with ADL's, To improve ability of physical actions for home/community/work/leisure, To improve health of tissue, To decrease soft tissue restriction, To increase flexibility/ROM, To reduce risk of recurrence, To improve ability to perform tasks related to life management Therapeutic Exercise to Include: Strength training, Body mechanics, Postural training, Flexibilty training, Passive ROM, Active ROM, Dynamic Lumbar Stabilization, Scapular Strength/Stabilization For the Purpose of:: To decrease pain, To increase ROM, To improve muscle performance and motor function, To improve ability to perform ADL's, To increase tolerance to activity/condition/position, To improve performance and independence with ADL's, To improve ability of physical actions for home/community/work/leisure, To improve health of tissue, To decrease soft tissue restriction, To increase flexibility/ROM, To assume or resume ADL's, To reduce risk of recurrence, To improve ability to perform tasks related to life management TENS: Yes IF ES: Yes Cryotherapy (ice pack, ice massage): Yes Thermo therapy (hot pack): Yes Ultrasound (thermal/non thermal): Yes Intermittent cervical traction: Yes For the Purpose of:: To decrease pain, To increase ROM, To improve nutrient delivery to tissue, To increase oxygenation perfusion, To improve gait and locomotor functions, To decrease soft tissue restriction Thank you for the opportunity to evaluate your patient. For Medicare and Medicare HMO plans, please review the plan of care and approve it. It will need to be FAXED BACK to us at [phone] for Medicare purposes. For Medicare only, by signing this I certify the plan of care. Please let me know if there are questions or concerns regarding this plan of care. Physician Signature: Date:
--- NOTE | 2020-09-26 08:58 | HP.PTDCSUM ---
It has been my pleasure to treat KVNG ROMERO referred by Dr. Candida Demarco DO, with the diagnosis of PAIN RIGHT SCAPULAR ,LOW BACK PAIN for a total of 9 visit(s). Discharge Date: 09/26/20 Please see the following information for a summary of their discharge status. Subjective: Doing well ready d/c Right Scapula Pain Intensity (Out of 10): 0 Bilateral Back Pain Intensity (Out of 10): 0 % Improvement: 100 Objective/Function: POSTURE: WFL. NEURO: INTACT DENIES PARATHESIA/TINGLING. CERVICAL ROM: MIN LOSS ALL PLANES OF MOTION. LUMBAR ROM: FELXION /MIN LOSS. BUE: GROSLSY 4/5 ,SHOULDERS 4-/5. MMT: QUADS/HAMS 4/5 ,HIP 4-/5 Goal 1:: Patient to be I with HEP Goal Progress: Goal Met Goal 2:: Patient to decrease right scapular pain and radicular symptoms in right arm by 50% or> to imp[rove function. Goal Progress: Goal Met Goal 3:: Patient to improve lumbar and cervical ROM for function of recovery Goal 4:: Patient to improve ability with ADL's and housework tasks with min limitations Goal Progress: Goal Met Goal 5:: Patient to improve cervical owestry 5 ponts or > to improve QOL. Plan: d/c to [facility] Discharge Comments: [facility] If there are questions or concerns regarding this patient's physical therapy, please feel free to call me at [phone]. Thank you for the referral of this patient. Sincerely, Ken Navarro, PT, Cert MDT, OCS
== END 2020-09-26 19:00 | disposition home or self-care (01) ==
LOC: PT 08:30
PROVIDERS: PCP Internal Medicine; Referring Provider Internal Medicine; Visit Provider Internal Medicine
DX: M25.511 Pain in right shoulder (principal); M54.5 Low back pain
CPT/HCPCS: 97014; 97110; 97162; G0283

== ENCOUNTER → 2020-10-17 08:08 | Outpatient (CLI) | payer BC, SELFPAY ==
--- NOTE | 2020-10-17 08:12 | RAD_ITS ---
STUDY: X-RAY - ESOPHAGUS (BARIUM SWALLOW) WITH FLUOROSCOPY REASON FOR EXAM: Female, 64 years old. DYSPHAGIA TECHNIQUE: 14 view(s) of the esophagus were obtained following swallowing of barium. FLUOROSCOPY TIME (if supplied): (27 seconds) minutes/seconds COMPARISON: None. FINDINGS: There is no demonstrated esophageal foreign body. There is no demonstrated stricture or mucosal abnormality. Normal gastroesophageal junction, without a demonstrated hiatal hernia. The patient ingested a 12 mm tablet of barium without any difficulty. Normal visualized aortic arch and descending thoracic aorta. Normal visualized pulmonary parenchyma. Normal visualized osseous structures of the thorax. RAD/Esophagus Dual Contrast IMPRESSION: Normal plain film x-ray examination (barium swallow) of the esophagus. Electronically Signed: Jacob Hagan MD at 14:45 EDT , Service support ,
== END ==
PROVIDERS: PCP Internal Medicine; Referring Provider Internal Medicine Gastroenterology; Visit Provider Internal Medicine Gastroenterology
DX: R13.10 Dysphagia, unspecified (principal)
CPT/HCPCS: 74221

== ENCOUNTER → 2020-11-27 07:57 | Outpatient (CLI) | payer BC, SELFPAY ==
--- NOTE | 2020-11-27 08:05 | BI_ITS ---
MAMMOGRAPHY - BILATERAL SCREENING REASON FOR EXAM: Female, 65 years old. Routine annual screening examination. PERTINENT HISTORY: Sister with breast cancer. TECHNIQUE: Digital bilateral breast esau (3D mammographic acquisition) in the CC and MLO projections. 2-D mediolateral oblique (MLO) and craniocaudad (CC) views of both breasts were obtained. CAD: Full Field Digital Mammography with Computer Added Detection was performed. COMPARISON: Comparison is made with prior study dated 11/08/2019 and 10/07/2018. FINDINGS: Breast Composition: The breasts are almost entirely fatty. There are no dominant masses or suspicious calcifications. No other significant abnormalities are identified. There has been no significant change since the prior study. BI/SCRN MAMM (CAD)W/ESAU BILAT IMPRESSION: Stable bilateral screening mammogram. Yearly follow-up mammogram recommended. (A) ASSESSMENT CATEGORY: BIRADS Category 1: Negative. A letter regarding these results will be sent to the patient by the facility within 30 days. Approximately 10% of breast cancers are not detected by mammography. A normal mammogram should not delay biopsy of a clinically suspicious abnormality. [id number] Electronically Signed: Jacob Hagan MD at 8:41 EDT , Service support ,
--- NOTE | 2020-11-27 08:05 | US_ITS ---
STUDY: THYROID ULTRASOUND REASON FOR EXAM: Female, 65 years old. NODULE TECHNIQUE: Ultrasound evaluation of the thyroid was performed with real-time and static arteaga-scale imaging. COMPARISON: Comparison is made with prior examination 11/08/2019 and 08/23/2018. FINDINGS: RIGHT LOBE: The right lobe of the thyroid gland measures 4.5 cm x 1.7 cm x 1.7 cm. There is a homogeneous echotexture. There is a 1 cm x 0.6 cm x 0.5 cm hypoechoic solid nodule in the midpole. This is essentially unchanged. LEFT LOBE: The left lobe of the thyroid gland measures 4 cm x 2 cm x 1.9 cm. There is a homogeneous echotexture. 0.8 cm x 0.6 cm x 0.4 cm cyst in the midpole. This is unchanged. Stable 6 mm x 7 mm x 4 mm complex nodule in the midpole. ISTHMUS: The isthmus measures 2 mm. The regional lymph nodes are normal. US/Thyroid IMPRESSION: Stable examination. Electronically Signed: Jacob Hagan MD at 14:42 EDT , Service support ,
== END ==
PROVIDERS: PCP Internal Medicine; Referring Provider Internal Medicine; Visit Provider Internal Medicine
DX: Z12.31 Encounter for screening mammogram for malignant neoplasm of breast (principal); E04.1 Nontoxic single thyroid nodule
CPT/HCPCS: 76536; 77063; 77067

== ENCOUNTER → 2020-11-30 06:55 | Outpatient (CLI) | payer BC, SELFPAY ==
--- NOTE | 2020-11-30 08:38 | NEURO_ITS ---
NCS and/or EMG Patient Report Ordering Doctor: Roberto Nunez DATE OF SERVICE: 11/30/20 Indication: Bilateral hand pain, numbness and tingling for ~6 years. Symptoms improve with steroid injections in the volar wrist. Evaluate for median neuropathy. Findings: Nerve conduction studies were performed in the right and left upper extremities. The right median motor study recording the abductor pollicis brevis showed a normal amplitude, prolonged distal latency and slowed conduction velocity. The right ulnar motor study recording the abductor digiti minimi showed a normal amplitude, normal distal latency and borderline conduction velocity. No conduction block or focal slowing was present across the elbow. Right median- ulnar lumbrical / interosseous motor latencies showed a prolonged median latency compared to the ulnar. The right median sensory response recording digit two showed a normal amplitude, prolonged latency and markedly slowed conduction velocity. The right ulnar sensory response recording digit five showed a normal amplitude, normal latency and borderline conduction velocity. The right radial sensory response recording over the extensor snuff box showed a normal amplitude, latency and conduction velocity. The left median motor study recording the abductor pollicis brevis showed a nor mal amplitude, prolonged distal latency and slowed conduction velocity. The left ulnar motor study recording the abductor digiti minimi showed a normal amplitude, normal distal latency and normal conduction velocity. No conduction block or focal slowing was present across the elbow. Left median-ulnar lumbrical / interosseous motor latencies showed a prolonged median latency compared to the ulnar. The left median sensory response recording digit two was absent. The left ulnar sensory response recording digit five showed a normal amplitude, normal latency and borderline conduction velocity. The left radial sensory response recording over the extensor snuff box showed a normal amplitude, latency and conduction velocity. Needle EMG of the right upper extremity and cervical paraspinal muscles was performed. Active denervation was seen in the abductor pollicis brevis muscle. Motor units in the abductor pollicis brevis were large amplitude, long duration and mildly polyphasic with reduced recruitment. Motor units in the triceps and flexor carpi radialis were borderline large amplitude and long duration. All other motor unit morphology, activation and recruitment patterns were normal. Needle EMG of the left abductor pollicis brevis muscle was performed. No active denervation was seen. Motor units were slightly large amplitude and long duration with normal recruitment and activation. Impression: This is an abnormal study. 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 The pathophysiology is primarily demyelination, though there is evidence of secondary axonal loss bilaterally. These findings are compatible with the clinical diagnosis of carpal tunnel syndrome. In addition, there is electrophys iologic evidence suggestive, but not diagnostic, of a superimposed, mild, chronic C7 radiculopathy in the right upper extremity. Corwin Gutierrez D.O.
== END ==
PROVIDERS: PCP Internal Medicine; Visit Provider Specialist
DX: R20.2 Paresthesia of skin (principal)
CPT/HCPCS: 95885; 95886; 95913

== ENCOUNTER 2021-01-31 16:15 | Emergency (ER) | payer BC, SELFPAY ==
[2021-01-31 16:15] VITALS: BP 178/91; PULSE 72; RESP 16; TEMP 36.4; O2SAT 98; BMI 44.1
--- NOTE | 2021-01-31 16:29 | RAD_ITS ---
STUDY: XR Shoulder Min 2 Views REASON FOR EXAM: Female, 65 years old. Trauma TECHNIQUE: XR Shoulder Min 2 Views COMPARISON: None. FINDINGS: Normal glenohumeral articulation. There is hypertrophic osteoarthrosis of the acromioclavicular joint with inferior osseous spur formation. Normal acromion. Normal humeral head and visualized proximal humerus. The soft tissue structures are unremarkable. Normal visualized pulmonary apex. RAD/Shoulder min 2 Views IMPRESSION: There are no acute findings of the shoulder. Electronically Signed: Huy Lew MD at 17:35 EST , Service support ,
--- NOTE | 2021-01-31 16:29 | CT_ITS ---
STUDY: CT BRAIN WITHOUT CONTRAST REASON FOR EXAM: Female, 65 years old. Technologist Notes Patient fell down 13 steps. Hx of HTN trauma TECHNIQUE: Transaxial CT imaging of the brain was performed without administration of intravenous contrast material. Individualized dose optimization techniques were used for this CT. COMPARISON: 02/22/2020 FINDINGS: Normal calvarium. There is no underlying fracture. Soft tissue swelling of the scalp- right forehead. Normal size ventricles and extra-axial spaces for the patient''s age. Normal white matter tracts of the cerebral hemispheres. Normal basal ganglia and thalami. Normal brainstem. Normal cerebellum. There is no intracranial hemorrhage. There are no findings of an acute ischemic infarction. Normal visualized paranasal sinuses. ASPECTS 10 CT/Brain/Head without Contrast IMPRESSION: There are no acute intracranial findings. There is no underlying fracture. Soft tissue swelling of the scalp- right forehead. Electronically Signed: Huy Lew MD at 17:01 EST , Service support ,
--- NOTE | 2021-01-31 16:29 | RAD_ITS ---
STUDY: XR Knee Complete 4 Views or More 01/31/2021 5:33 PM REASON FOR EXAM: Female, 65 years old. PAIN TECHNIQUE: XR Knee Complete 4 Views or More COMPARISON: None. FINDINGS: Normal visualized distal femur. Normal visualized proximal tibia and fibula. Normal proximal tibiofibular articulation. There is mild degenerative arthrosis of the medial femorotibial compartment. Normal lateral femorotibial compartment. Normal patellofemoral articulation. There is a soft tissue prominence in the suprapatellar region suggesting a small volume joint effusion. The soft tissue structures are unremarkable. RAD/Knee 4 or More Views IMPRESSION: There is a soft tissue prominence in the suprapatellar region suggesting a small volume joint effusion. There is mild degenerative arthrosis of the medial femorotibial compartment. Electronically Signed: Huy Lew MD at 17:34 EST , Service support ,
--- NOTE | 2021-01-31 16:29 | RAD_ITS ---
STUDY: X-RAY XR Forearm 2 Views REASON FOR EXAM: Female, 65 years old. Trauma TECHNIQUE: XR Forearm 2 Views COMPARISON: None. FINDINGS: There is no demonstrated soft tissue swelling. Normal visualized radius. Normal visualized ulna. RAD/Forearm 2 Views IMPRESSION: No acute findings Electronically Signed: Huy Lew MD at 17:34 EST , Service support ,
--- NOTE | 2021-01-31 16:29 | RAD_ITS ---
STUDY: XR Wrist Min 3 Views REASON FOR EXAM: Female, 65 years old. PAIN TECHNIQUE: XR Wrist Min 3 Views COMPARISON: None. FINDINGS: There are no acute findings of the visualized distal radius and ulna. There are no acute findings of the radiocarpal articulation. Normal distal radioulnar articulation. Normal carpal bones. Normal carpal articulations. There are no acute findings of the carpometacarpal articulation of the thumb. Normal second through fifth carpometacarpal articulations. There are no acute findings of the visualized metacarpal bones. There is non-specific soft tissue swelling. RAD/Wrist min 3 Views IMPRESSION: There is non-specific soft tissue swelling. Electronically Signed: Huy Lew MD at 17:34 EST , Service support ,
--- NOTE | 2021-01-31 16:32 | ED.VIS.FALL ---
HPI HPI - Fall History of Present Illness Chief Complaint: Fall Informant: patient Occured/Mechanism Occurred: Today Mechanism/Context: Yes slip Usually ambulates: Without assistance Pain/Injury Pain Location: head, face, upper extremity and lower extremity Quality of Pain: Sharp Current Severity: Moderate Maximum Severity: Moderate Associated Symptoms Associated Symptoms: Negative for Parasthesias, Weakness, Loss of function, Inability to ambulate, Loss of consciousness and Amnesia Narrative Narrative: 65-year-old female slipped walking the steps and went down about 13 steps. She said the bottom there is worried that she hit her right knee on a causing a laceration. She denies any LOC but said she struck her head and her nose primarily pretty hard. She is on aspirin but no other blood thinners. Denies any neck pain. Also complaining of right shoulder forearm and wrist pain. And also left knee pain. She denies any recent illness. Her tetanus is up-to-date within the last 2 years. Tetanus Immunization: <5 years Prior similar symptoms: Yes Recent Illness/Hospitalization: No PFSH PFSH Medical History (Updated 01/31/21 @ 19:[address] Dayton Clark MD) A-fib Acid reflux Arthritis Fatigue Hypertension Knee pain Numbness and tingling Sleep apnea Home Medications atenolol 25 mg PO DAILY 02/08/16 [History Last Taken 12/30/17] amlodipine 10 mg-olmesartan 40 mg tablet 1 tab PO DAILY tab 09/03/18 [History Last Taken Unknown] aspirin 81 mg tablet,delayed release 162 mg PO DAILY 09/03/18 [History Last Taken Unknown] rosuvastatin 5 mg tablet 10 mg PO DAILY tab 09/03/18 [History Last Taken Unknown] famotidine 20 mg PO DAILY 01/31/21 [History Last Taken Unknown] Allergy/AdvReac Type Severity Reaction Status Date / Time No Known Allergies Allergy Verified 01/31/21 16:19 Family History Sister Asthma Hypertension High cholesterol Bladder cancer CML (chronic myelocytic leukemia) Mother Colon cancer Diabetes Father Asthma Arthritis Brother Asthma Surgical History History of left knee replacement Hx of colonoscopy Hx of dilation and curettage Hx of hysterectomy Social History Smoking Status: Never smoker second hand exposure: No alcohol intake: never substance use type: does not use caffeine: No what type of physical activity do you participate in: none frequency: does not exercise ROS ROS ED ROS Narrative Denies recent illness. Review of Systems ROS Unobtainable: Denies due to encephalopathy Constitutional Constitutional ED: Denies fever(s) or subjective Eyes Eyes: Denies change in vision ENT ENT ED: Denies ear pain Cardiovascular Cardiovascular: Denies chest pain Respiratory/Chest Respiratory/Chest: Denies cough or dyspnea Gastrointestinal Gastrointestinal: Denies abdominal pain, diarrhea, nausea or vomiting Genitourinary Genitourinary ED: Denies dysuria Musculoskeletal Musculoskeletal: Denies myalgias Integumentary Denies rash Neurologic Neurologic: Denies headache(s) Psychiatric Psychiatric: Denies depression Endocrine Endocrinology: Denies polyuria Hematologic/Lymphatic Hematologic/Lymphatic: Denies easy bruising Allergic/Immunologic Allergic/Immunologic ED: Denies urticaria EXAM Physical Exam Narrative Exam Narrative: 65-year-old female upright in bed. Vital signs stable afebrile. Pulse ox 98% on room air no hypoxia. HEENT exam contusion to the bridge of her nose. No deformity mild swelling. No blood in either nares. Pupils round reactive light. No hematomas or lacerations to her scalp. C-spine nontender. Trachea midline. Lungs clear to auscultation bilaterally. Heart regular rhythm no murmur rate about 70. Chest wall nontender. Abdomen soft nontender normal bowel sounds no peritoneal signs. Pelvic girdle intact. Full flexion-extension of both hips, knees, ankle and feet. Dorsi plantarflexion intact. She can lift either leg. Extensor mechanism is intact. Right knee anteriorly there is about a 3 inch horizontal laceration which will need repaired. Back nontender spine nontender. Neurologically awake alert. No focal motor or sensory deficits. Patient knows day month and year. She knows president. Her GCS is 15. Const Vital Signs: 01/31/21 16:15 01/31/21 16:37 Temperature 97.5 F L Temperature Source Temporal Pulse Rate 72 Respiratory Rate 16 Respiratory Effort Normal Non-Labored Respiratory Depth Normal Respiratory Pattern Normal Blood Pressure 178/91 H Blood Pressure Mean 120 Pulse Ox 98 Oxygen Delivery Method Room Air Room Air Positive well nourished, well developed and obese; Negative for cachectic, contractures or unkempt General Appearance ED: well developed and NAD; Negative for unkempt, cachectic or contractures Nutritional Appearance: obese; Negative for cachectic HEENT Reports normocephalic HEENT Narrative: Contusion of the bridge of her nose. trauma and tenderness Eyes PERRL and EOMs intact bilaterally Neck full ROM, no lymphadenopathy and supple General: Negative for tenderness Chest Wall inspection of chest normal and palpation of chest normal Resp normal respiratory effort, no retractions and clear to auscultation bilaterally Auscultation: Negative for rales, rhonchi or wheezes Cardio regular rate, regular rhythm, S1 normal heart sound, S2 normal heart sound and no murmurs GI non-tender, non-distended and no masses Inspection: Negative for abdominal distention Auscultation: normoactive bowel sounds Palpation: soft; Negative for guarding or rebound tenderness present Back/Spine no CVA tenderness General Back: Negative for CVA tenderness Cervical Spine: Negative for cervical spine tenderness Thoracic Spine / Upper Back: Negative for thoracic spinal tenderness Lumbar Spine / Lower Back: Negative for lumbar spinal tenderness or paraspinal muscle tenderness Extremity full ROM, no clubbing, cyanosis or edema, no calf tenderness and no pedal edema Extremity Narrative: Tenderness right shoulder, right proximal forearm, right wrist. Tenderness left knee. Laceration right anterior knee. Psych mental status grossly normal and thought process normal Appearance: Negative for unkempt Attitude: No agitated Mood & Affect: Negative for depressed or tearful Skin Lesions: no lesions and No lesion noted Rashes: no rashes and No rashes noted Trauma: laceration; Negative for abrasion MDM MDM MDM Narrative Medical decision making narrative: 65-year-old female slipped and went down about 10-13 steps. No LOC. Needs a CAT scan of her head for the head injury and x-rays of her extremities. The right knee will need to be suture repaired. Repeat exam at 7:20 PM patient doing well. I went over all of her x-rays with her. She is comfortable being discharged home. Ice all sore areas. Tylenol and Motrin for pain. Follow-up if not improving for repeat exam. Repair of the right knee laceration patient did well. Reexamined after the knee laceration she is doing well at 7:50 PM. Radiography Diagnostic Testing: Clinical Impression(s) from Imaging Studies Brain CT 01/31/21 16:29 IMPRESSION: There are no acute intracranial findings. There is no underlying fracture. Soft tissue swelling of the scalp- right forehead. Electronically Signed: Huy Lew MD at 17:01 EST , Service support , Forearm X-Ray 01/31/21 16:29 IMPRESSION: No acute findings Electronically Signed: Huy Lew MD at 17:34 EST , Service support , Knee X-Ray 01/31/21 16:29 IMPRESSION: There is a soft tissue prominence in the suprapatellar region suggesting a small volume joint effusion. There is mild degenerative arthrosis of the medial femorotibial compartment. Electronically Signed: Huy Lew MD at 17:34 EST , Service support , Shoulder X-Ray 01/31/21 16:29 IMPRESSION: There are no acute findings of the shoulder. Electronically Signed: Huy Lew MD at 17:35 EST , Service support , Wrist X-Ray 01/31/21 16:29 IMPRESSION: There is non-specific soft tissue swelling. Electronically Signed: Huy Lew MD at 17:34 EST , Service support , Cervical Spine CT 01/31/21 16:38 IMPRESSION: Degenerative changes of the cervical spine. There is mild straightening of the normal cervical lordosis. This can suggest neck strain. Electronically Signed: Huy Lew MD at 17:03 EST , Service support , Hip/Pelvis X-Ray 01/31/21 16:51 IMPRESSION: No acute findings. Electronically Signed: Huy Lew MD at 17:36 EST , Service support , CT of the head and C-spine as read by the radiologist reviewed by me shows no acute abnormality. Right wrist x-ray 3 views interpreted by radiologist and myself shows no acute abnormality. Right shoulder x-ray 2 views shows no acute abnormality interpreted by the radiologist and myself. Right forearm x-ray no acute abnormality 2 views interpreted by myself and the radiologist. Left hip 2 views interpreted by myself and radiologist shows no acute abnormality. No fractures were noted on the x-rays. Procedures Lacerations Right knee laceration: Length: 3.5 in Depth: Sub Q Shape: Linear Prep: Sterile Conditions Laceration repair: Irrigated, Lidocaine, Local, Skin sutures and Wound explored Irrigated (ml): 100 Number of Sutures/Funmilayo: 8 Suture Information: Ethilon and 4-0 Comment: Right knee laceration between 3 and 4 inches in length. Involves skin and subcu tissue. Locally anesthetized with lidocaine. Cleaned with Shur-Clens washed with saline. Irrigated with saline about 100 cc. Explored. Closed using 8 simple interrupted 4-0 Ethilon sutures. Proper hemostasis and wound closure is obtained. Patient tolerated procedure well. She was instructed on wound care and suture removal in 10 to 14 days. Discharge Plan Triage Chief Complaint: Fall ED Provider: Dayton Clark Dx/Rx/DC Orders Clinical Impression: Fall down steps, Contusion, Laceration of knee, right Instructions: Bruises (Contusions) Prescriptions: No Action aspirin [Adult Low Dose Aspirin] 81 mg tablet,delayed release (DR/EC) 162 mg PO DAILY RF: 0 atenolol 25 MG tablet 25 mg PO DAILY RF: 0 amlodipine-olmesartan 10-40 mg tablet 1 tab PO DAILY RF: 0 rosuvastatin 5 mg tablet 10 mg PO DAILY RF: 0 famotidine 20 mg tablet 20 mg PO DAILY RF: 0 Primary Care Provider: Candida Demarco Referrals: Candida Demarco, DO [Primary Care Provider] - 1 Week if not improving Activity Restrictions/Additional Instructions: Ice to all sore areas. Motrin and Tylenol for pain. Follow-up with your primary care physician if not improving. All your x-rays tonight were negative If Not improving they may need to re-evaluated. Disposition Disposition: Home, Self Care
--- NOTE | 2021-01-31 16:38 | CT_ITS ---
EXAM: CT SPINE - CERVICAL WITHOUT IV REASON FOR EXAM: Female, 65 years old. NECK PAIN trauma Individualized dose optimization techniques were used for this CT. TECHNIQUE: Multiplanar images were obtained of the cervical spine. IV contrast was not utilized. COMPARISON: None. FINDINGS: The vertebral bodies do maintain their height. The odontoid process is intact. There is no anterolisthesis or fracture. No pre-vertebral soft tissue swelling is seen. The intravertebral disc height is lost. There are scattered lymph nodes in the neck. There are degenerative changes of the osseous structures. There is bilateral facet arthropathy. There are scattered levels of foraminal stenosis. There are vascular calcifications. CT/Spine Cervical without Contras IMPRESSION: Degenerative changes of the cervical spine. There is mild straightening of the normal cervical lordosis. This can suggest neck strain. Electronically Signed: Huy Lew MD at 17:03 EST , Service support ,
[2021-01-31] MEDS: Acetaminophen 500 MG Tablet 1000 MG PO (16:41)
--- NOTE | 2021-01-31 16:51 | RAD_ITS ---
STUDY: XR Hip Unilateral with Pelvis when performed; 2-3 Views 01/31/2021 4:50 PM REASON FOR EXAM: Female, 65 years old. PAIN TECHNIQUE: XR Hip Unilateral with Pelvis when performed; 2-3 Views COMPARISON: None. FINDINGS: There is a non-specific bowel gas pattern. Normal visualized soft tissue structures. Normal bilateral iliac wings, sacroiliac joints and visualized sacrum. Normal visualized bilateral superior and inferior pubic rami. Normal pubic symphysis. Normal ischial tuberosities. Normal visualized right femoral head. Normal right acetabulum. Normal right hip joint. Normal visualized left femoral head. Normal left acetabulum. Normal left hip joint. RAD/HIP, UNI W/ Pelvis 2-3 Views IMPRESSION: No acute findings. Electronically Signed: Huy Lew MD at 17:36 EST , Service support ,
[2021-01-31] MEDS: Lidocaine 1% (20 ml mdv) 20 ML Vial INFILT (20:02)
[2021-01-31 20:03] VITALS: RESP 16
== END 2021-01-31 20:04 | disposition home or self-care (01) ==
PROVIDERS: Emergency Provider Emergency Medicine; PCP Internal Medicine
DX: S81.011A Laceration without foreign body, right knee, initial encounter (principal); W10.9XXA Fall (on) (from) unspecified stairs and steps, initial encounter; M47.812 Spondylosis without myelopathy or radiculopathy, cervical region; G47.30 Sleep apnea, unspecified; I10 Essential (primary) hypertension; I48.91 Unspecified atrial fibrillation; K21.9 Gastro-esophageal reflux disease without esophagitis; Z79.82 Long term (current) use of aspirin; Z96.652 Presence of left artificial knee joint
CPT/HCPCS: 12002; 70450; 72125; 73030; 73090; 73110; 73502; 73564; 99285

== ENCOUNTER → 2021-02-08 08:44 | Outpatient (CLI) | payer BC, SELFPAY ==
[2021-02-08 12:34] LABS: Absolute Lymphocyte Count 2.38 X10^3/uL (0.83-4.51); Absolute Neutrophil Count 5.2 X10^3/uL (2.0-7.7); Basophil# 0.06 X10^3/uL; Basophil% 0.7 % (0-1); Eosinophil# 0.19 X10^3/uL; Eosinophils% 2.3 % (0-5); Hematocrit 42.6 % (37-47); Hemoglobin 14.1 g/dL (12.0-15.0); Lymphocyte # 2.38 X10^3/ul (0.83-4.51); Lymphocyte % 28.4 % (19-41); Mean Corp Hgb Conc 33.1 g/dL (32-36); Mean Corpuscular Hgb 27.8 pg (27.0-32.0); Mean Platelet Vol. 10.7 fl (6.2-12.0); Monocyte# 0.56 X10^3/uL; Monocyte% 6.7 % (0-10); NRBC Flagged by Analyzer 0 % (0-5); Neutrophil # 5.17 X10^3/uL (2.7-7.7); Neutrophil % 61.7 % (47-70); Platelet Count 252 K/mm3 (150-450); RBC Distribution Width CV 13.1 % (11.6-14.6); RBC Distribution Width SD 39.8 fl (35.1-43.9); Red Blood Count 5.07 M/mm3 (4.2-5.4); White Blood Count 8.4 K/mm3 (4.4-11.0)
[2021-02-08 12:53] LABS: Microalbumin:Creatinine Ratio 8.1 mg/g CRE (<30 mg/g CRE)
[2021-02-08 12:56] LABS: Vitamin D,25 Hydroxy 49.5 ng/mL
[2021-02-08 12:58] LABS: Hemoglobin A1c 5.6 % (3.8-5.6)
[2021-02-08 13:10] LABS: AST(SGOT) 14 U/L (15-37); Alanine Aminotransfer ALT/SGPT 24 U/L (13-56); Albumin, Serum 3.4 g/dL (3.2-5.0); Alkaline Phosphatase 73 U/L (45-117); Anion Gap 5 (5-15); BUN 25 mg/dL (7-18); BUN/Creat Ratio 34.4 RATIO (10-20); Calcium,Total 8.9 mg/dL (8.5-10.1); Chloride 110 mmol/L (98-107); Cholesterol 127 mg/dL (200); Creatinine, Serum 0.73 mg/dL (0.55-1.02); EST Glomerular Filtration Rate 86 mL/min (>60); Est Glom Filt Rate - Afr Amer 104 mL/min (>60); Globulin 3.5 g/dL (2.2-4.2); Glucose 101 mg/dL (74-106); High Density Lipoprotein 40 mg/dL; Potassium 4.3 mmol/L (3.5-5.1); Protein, Total 6.9 g/dL (6.4-8.2); Sodium Level 141 mmol/L (136-145); Triglycerides 99 mg/dL; Very Low Density Lipoprotein 20 mg/dL (5-40)
== END ==
PROVIDERS: PCP Internal Medicine; Referring Provider Internal Medicine; Visit Provider Internal Medicine
DX: E11.9 Type 2 diabetes mellitus without complications (principal); E55.9 Vitamin D deficiency, unspecified
CPT/HCPCS: 36415; 80053; 80061; 82043; 82306; 82570; 83036; 85025

== ENCOUNTER 2021-04-19 15:33 | Outpatient (CLI) | payer BC, SELFPAY ==
--- NOTE | 2021-04-19 15:37 | CT_ITS ---
STUDY: CT MAXILLOFACIAL SINUSES REASON FOR EXAM: Female, 65 years old. Sinusitis. RADIATION DOSAGE (If Supplied By Facility): CTDIvol = ( 33.06 ) mGy, DLP = ( 763.60 ) mGycm TECHNIQUE: The patient was scanned in a multi detector CT scanner. High resolution axial imaging was performed without the administration of intravenous contrast material. Sagittal and coronal images were reconstructed. Individualized dose optimization techniques were used for this CT. COMPARISON: None. FINDINGS: FRONTAL SINUSES: Normal aeration, without mucosal inflammatory disease. ETHMOIDAL SINUSES: Normal aeration, without mucosal inflammatory disease. MAXILLARY SINUSES: Normal aeration, without mucosal inflammatory disease. SPHENOIDAL SINUSES: Normal aeration, without mucosal inflammatory disease. There is patency of the bilateral maxillary infundibuli with normal uncinate processes, ethmoid bullae, and hiatus semilunaris. Normal bilateral middle turbinates. Normal bilateral inferior turbinates. There is a left sided nasal septal deviation, but without a nasal septal spur. There is patency of the bilateral nasal airways. The visualized osseous structures are normal. The visualized bilateral orbital contents are normal. CT/Sinus/Facial Bone IMPRESSION: 1. No evidence of sinus abnormality. 2. Mild left nasal septal deviation. Electronically Signed: Al Valdes DO at 16:56 EST ,
== END 2021-04-19 23:59 | disposition short-term general hospital (02) ==
LOC: CT 15:36
PROVIDERS: PCP Internal Medicine; Referring Provider Internal Medicine; Visit Provider Internal Medicine
DX: J32.9 Chronic sinusitis, unspecified (principal)
CPT/HCPCS: 70486

== ENCOUNTER → 2021-11-29 | Outpatient (CLI) | payer BC, SELFPAY ==
--- NOTE | 2021-11-29 08:09 | US_ITS ---
INDICATION: follow up on fatty liver EXAMINATION: US Abdomen RUQ (limited) TECHNIQUE: Moreno scale and color doppler imaging was performed of the right upper quadrant. COMPARISON: Right upper quadrant ultrasound from 05/21/2020. FINDINGS: LIVER: Mildly increased liver echotexture compatible with fatty infiltration, improved in the interval. Small 1.9 cm hyperechoic focus within right lobe adjacent to gallbladder fossa likely accentuated focal fat or benign hemangioma. Ovoid hypoechoic and avascular focus within the left lobe of liver measuring 1.4 x 0.8 x 1.1 cm, possibly representing focal fatty sparing. Stable ovoid hypoechoic and avascular lesion within anterior left lobe of liver measuring 2.2 x 1.3 x 2 cm. No significant intrahepatic biliary ductal dilatation. The right lobe of liver remains slightly enlarged and measures 18.5 cm in length. GALLBLADDER AND BILIARY TREE: No shadowing gallstones demonstrated. No significant gallbladder wall thickening or pericholecystic fluid demonstrated. The proximal common bile duct measures 4 mm, which is within normal limits for the patient''s age. Sonographic Cabrera''s sign: Negative. PANCREAS: The visualized pancreas remains hyperechoic. RIGHT KIDNEY: Right kidney measures 11.3 cm in length. No hydronephrosis. Anechoic cyst at lower pole of right kidney grossly stable in size, 1.8 cm diameter (margins are somewhat obscured secondary to shadowing). VESSELS: Unremarkable as visualized. US/Abdomen Limited IMPRESSION: 1. Mild hepatomegaly with slightly improving hepatic steatosis. There are few small liver lesions demonstrated, as described above. Possible combination of benign hemangioma, focal fatty sparing and focal fatty accentuation. Continued follow-up recommended. 2. Pancreatic steatosis. 3. Small right renal cyst. Electronically Signed: Maico Man MD at 5:30 EDT ,
--- NOTE | 2021-11-29 08:10 | US_ITS ---
INDICATION: F/U THYROID NODULE EXAMINATION: Ultrasound US Thyroid (eg thyroid, parathyroid, parotid) TECHNIQUE: Moreno scale and color doppler imaging was performed of the thyroid gland. COMPARISON: November 27, 2020, November 08, 2019, March 25, 2017. FINDINGS: RIGHT THYROID LOBE: 4.4 x 2.0 x 1.4 cm. Homogeneous echotexture with normal vascularity. [1. Mid thyroid 1.0 x 0.7 x 0.5 cm heterogeneous hypoechoic solid nodule with smooth margins, wider than tall and no calcifications, TIRADS - 4 LEFT THYROID LOBE: 4.3 x 1.9 x 1.5 cm. Homogeneous echotexture with normal vascularity. [1. Anterior upper to mid pole 0.3 x 0.3 x 0.2 cm hypoechoic cystic nodule with central coarse calcification, smoothly marginated, wider than tall, decreased cystic component compared with April 22, 2017 and prior exam; TIRADS 3 2. Anterior lower pole 0.5 x 0.3 x 0.2 cm solid mixed hypo and isoechoic nodule, wider than tall with smooth margins and no calcifications; TIRADS - 4 3. Anterior lateral mid thyroid 0.8 x 0.5 x 0.3 cm mixed hypo and isoechoic nodule, wider than tall with smooth margins and no calcifications; TIRADS - 4, not definitively seen on prior exams ISTHMUS: 0.2 cm. No thyroid nodules are present. No surrounding adenopathy is appreciated. US/Thyroid IMPRESSION: Right thyroid TIRAD 4 nodule (moderately suspicious), measuring up to 1 cm in the right thyroid without change from April 22, 2017. Follow-up ultrasound in 1 year to define >5 year stability per ACR TIRADS 2017 white paper. Multiple left thyroid nodules with 8mm TIRAD 4 and 3mm TIRAD 3 nodule remaining stable from April 22, 2017. Recommend attention to nodules on one year follow-up recommended above. Left thyroid 5 mm TIRAD 4 nodule not seen on prior exams. Recommend attention to nodule on one year follow-up recommended above. Electronically Signed: Edgar Strickland MD at 5:55 EDT ,
== END | disposition home or self-care (01) ==
PROVIDERS: PCP Internal Medicine; Referring Provider Internal Medicine; Visit Provider Internal Medicine
DX: E04.1 Nontoxic single thyroid nodule (principal); K76.0 Fatty (change of) liver, not elsewhere classified
CPT/HCPCS: 76536; 76705

== ENCOUNTER → 2021-12-10 | Outpatient (CLI) | payer BC, SELFPAY ==
--- NOTE | 2021-12-10 09:20 | BI_ITS ---
MAMMOGRAPHY - BILATERAL SCREENING 3-D TOMOSYNTHESIS REASON FOR EXAM: Female, 66 years old. SCREENING PERTINENT HISTORY: No significant family history. TECHNIQUE: 2-D mammograms and 3-D Tomosynthesis of the breast (s) were performed. CAD was performed. COMPARISON: 11/27/2020 FINDINGS: The breast composition is composed of scattered fibroglandular density. Scattered benign calcifications are seen. No dense spiculated masses or suspicious microcalcifications are identified. No architectural distortion is identified. There is no skin thickening or retraction. There has been no significant change since the prior study. BI/SCRN MAMM (CAD)W/ESAU BILAT IMPRESSION: No mammographic signs of malignancy. Routine yearly mammograms recommended. ASSESSMENT CATEGORY: BIRADS Category 1: Negative. A letter regarding these results will be sent to the patient by the facility within 30 days. FOLLOW UP RECOMMENDATION: Yearly follow up mammogram recommended. (A) Approximately 10% of breast cancers are not detected by mammography. A normal mammogram should not delay biopsy of a clinically suspicious abnormality. Electronically Signed: Collin Lawrence MD at 11:05 EDT ,
--- NOTE | 2021-12-10 09:32 | BD_ITS ---
STUDY: DUAL ENERGY X-RAY ABSORPTIOMETRY / DXA REASON FOR EXAM: Female, 66 years old. Z780 -- postmenopausal screening for osteoporosis TECHNIQUE: Bone Mineral Density (BMD) measurements of lumbar spine and bilateral hips were obtained. COMPARISON: Comparison is made with prior study dated 10/06/2017. FINDINGS: Lumbar Spine (L1-L4): g/cm2 (1.186) / T-score (1.4) / Z-score (3.1) Findings are suggestive of normal bone density with a low fracture risk. Left Femur Total: g/cm2 (1.057) / T-score (0.9) / Z-score (2.2) Left Femoral Neck: g/cm2 (0.831) / T-score (-0.2) / Z-score (1.3) Right Femur Total: g/cm2 (1.084) / T-score (1.2) / Z-score (2.4) Right Femoral Neck: g/cm2 (0.922) / T-score (0.7) / Z-score (2.2) The T-Scores on the most recent prior examination were: Lumbar Spine (L1-L4): There has been worsening of bone density since the previous examination. Left Femur Total: which represents a worsening of 6.2%. Right Femur Total: which represents a worsening of 6.2%. BD/Dexa Bone Density Study IMPRESSION: The patient is considered normal as outlined below according to World Richy Organization (WHO) criteria with a low fracture risk. There has been worsening of bone density since the previous examination. Reference Information: The T-score is the number of standard deviations above or below the standard which is normal for young adults at their peak bone mineral density. The World Health Organization (WHO) interprets the T-scores as follows: Above -1 Normal bone density Between -1 and -2.5 Osteopenia Equal to / or below -2.5 Osteoporosis As a practical clinical guideline, osteopenia may be graded as follows: Mild -1 through -1.5 Moderate -1.6 through -2.0 Severe -2.1 through -2.4 The Z-score is the number of standard deviations above or below age-matched controls. A Z-score of less than -1.5 would be considered abnormal. References: 1. NIH Osteoporosis and Related Bone Diseases www osteo.org 2. International Society for Clinical Densitometry www iscd.org 3. National Osteoporosis Foundation www nof.org Electronically Signed: Jacob Hagan MD at 12:44 EDT ,
== END | disposition home or self-care (01) ==
LOC: OPBD 09:19
PROVIDERS: PCP Internal Medicine; Visit Provider Internal Medicine
DX: Z12.31 Encounter for screening mammogram for malignant neoplasm of breast (principal); Z78.0 Asymptomatic menopausal state
CPT/HCPCS: 77063; 77067; 77080

== ENCOUNTER → 2022-02-17 | Outpatient (CLI) | payer BC, SELFPAY ==
[2022-02-17 07:19] LABS: Absolute Lymphocyte Count 2.86 X10^3/uL (0.83-4.51); Absolute Neutrophil Count 4.7 X10^3/uL (2.0-7.7); Basophil# 0.05 X10^3/uL; Basophil% 0.6 % (0-1); Eosinophil# 0.29 X10^3/uL; Eosinophils% 3.4 % (0-5); Hematocrit 45.4 % (37-47); Lymphocyte # 2.86 X10^3/ul (0.83-4.51); Lymphocyte % 33.9 % (19-41); Mean Corpuscular Hgb 27.8 pg (27.0-32.0); Mean Corpuscular Volume 84.2 fL (81-99); Mean Platelet Vol. 9.5 fl (6.2-12.0); Monocyte# 0.54 X10^3/uL; Monocyte% 6.4 % (0-10); NRBC Flagged by Analyzer 0 % (0-5); Neutrophil # 4.67 X10^3/uL (2.7-7.7); Neutrophil % 55.3 % (47-70); Platelet Count 256 K/mm3 (150-450); RBC Distribution Width CV 13.2 % (11.6-14.6); Red Blood Count 5.39 M/mm3 (4.2-5.4); White Blood Count 8.4 K/mm3 (4.4-11.0)
[2022-02-17 08:10] LABS: Hemoglobin A1c 6.2 % (3.8-5.6)
[2022-02-17 08:13] LABS: Vitamin B12 722 pg/mL (211-911)
[2022-02-17 08:49] LABS: ALB/GLOB Ratio 0.9 RATIO (0.9-2.4); AST(SGOT) 9 U/L (15-37); Alanine Aminotransfer ALT/SGPT 27 U/L (13-56); Albumin, Serum 3.4 g/dL (3.2-5.0); Alkaline Phosphatase 68 U/L (45-117); Anion Gap 8 (5-15); BUN 21 mg/dL (7-18); BUN/Creat Ratio 26.2 RATIO (10-20); Calcium,Total 9.2 mg/dL (8.5-10.1); Chloride 107 mmol/L (98-107); Cholesterol 167 mg/dL (200); EST Glomerular Filtration Rate 76 mL/min (>60); Est Glom Filt Rate - Afr Amer 93 mL/min (>60); Globulin 3.6 g/dL (2.2-4.2); Glucose 119 mg/dL (74-106); High Density Lipoprotein 45 mg/dL; Potassium 3.7 mmol/L (3.5-5.1); Sodium Level 139 mmol/L (136-145); Triglycerides 168 mg/dL; Very Low Density Lipoprotein 34 mg/dL (5-40)
[2022-02-18 15:20] LABS: AFP, Tumor Marker 2.9 ng/mL (0.0-9.2)
== END | disposition home or self-care (01) ==
PROVIDERS: PCP Internal Medicine; Referring Provider Internal Medicine; Visit Provider Internal Medicine
DX: E53.8 Deficiency of other specified B group vitamins (principal); E11.9 Type 2 diabetes mellitus without complications; E78.2 Mixed hyperlipidemia; K76.0 Fatty (change of) liver, not elsewhere classified
CPT/HCPCS: 36415; 80053; 80061; 82105; 82607; 83036; 85025

== ENCOUNTER 2022-02-21 07:00 | Outpatient (RCR) | payer BC, SELFPAY ==
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
--- NOTE | 2022-07-24 14:49 | HP.PTDCSUM ---
It has been my pleasure to treat KVNG ROMERO referred by Dr. Candida Demarco DO, with the diagnosis of LUMBAR RADICULOPATHY for a total of 7 visit(s). Discharge Date: Please see the following information for a summary of their discharge status. Subjective: Doing well Bilateral Back Pain Intensity (Out of 10): 0 Right Lower Extremity Pain Intensity (Out of 10): 0 % Improvement: 90 Objective/Function: POSTURE: WFL. GAIT: RECIPROCAL PATTERN. PALPATION: UNRECIPROCAL. MMT: 4/5 GROSSLY. LUMBAR ROM: FLEXION /EXTENSION/ WNL Goal 1:: I with HEP Goal Progress: Goal Met Goal 2:: Patient to improve posture/body mechanics 50% of the time Goal Progress: Goal Met Goal 3:: Patient to demonstrate 50 % improvement with improved function and less pain Goal Progress: Goal Met Goal 4:: Patient to improve lumbar ROM for function of recovery to put on shoes Goal 5:: Patient to improve back osestry score by 5 points or > to improve function Goal Progress: Goal Met Plan: D/C TO HEP If there are questions or concerns regarding this patient's physical therapy, please feel free to call me at [phone]. Thank you for the referral of this patient. Sincerely, Ken Navarro, PT, Cert MDT, OCS Balance/Gait/Functional tests - Balance/Special Test Scores Oswestry Low Back Score: 2
== END 2022-02-21 19:00 | disposition home or self-care (01) ==
LOC: PT 07:00
PROVIDERS: PCP Internal Medicine; Referring Provider Internal Medicine; Visit Provider Internal Medicine
DX: M54.16 Radiculopathy, lumbar region (principal)
CPT/HCPCS: 97110; 97162

== ENCOUNTER → 2022-10-04 | Outpatient (CLI) | payer BC, SELFPAY ==
[2022-10-04 10:10] LABS: Mucous, Urine 0 SEEN /hpf (<or=2+); Red Blood Cells-Urine 0 SEEN /hpf (0-5)
[2022-10-04 10:46] LABS: Absolute Lymphocyte Count 2.69 X10^3/uL (0.83-4.51); Absolute Neutrophil Count 4.8 X10^3/uL (2.0-7.7); Basophil# 0.06 X10^3/uL; Basophil% 0.7 % (0-1); Eosinophil# 0.32 X10^3/uL; Eosinophils% 3.8 % (0-5); Hematocrit 44.4 % (37-47); Hemoglobin 14.7 g/dL (12.0-15.0); Lymphocyte # 2.69 X10^3/ul (0.83-4.51); Lymphocyte % 31.6 % (19-41); Mean Corp Hgb Conc 33.1 g/dL (32-36); Mean Corpuscular Hgb 27.7 pg (27.0-32.0); Mean Corpuscular Volume 83.8 fL (81-99); Mean Platelet Vol. 9.7 fl (6.2-12.0); Monocyte# 0.62 X10^3/uL; Monocyte% 7.3 % (0-10); NRBC Flagged by Analyzer 0 % (0-5); Neutrophil % 56.2 % (47-70); Platelet Count 311 K/mm3 (150-450); RBC Distribution Width CV 13.1 % (11.6-14.6); White Blood Count 8.5 K/mm3 (4.4-11.0)
[2022-10-04 10:54] LABS: Glucose, Dipstick Normal (Normal); Ketone-Dipstick Negative (Negative); Leukocyte Esterase-Dipstick 100 /ul (Negative); Nitrite-Dipstick Negative (Negative); Occult Blood-Urine Negative /ul (Negative); Protein-Dipstick Negative (Negative); Specific Gravity, Urine 1.025 (1.002-1.030); Urine Bilirubin Dipstick Negative (Negative); Urine Urobilinogen Normal (Normal)
[2022-10-04 10:55] LABS: Color, Urine Yellow (Yellow); Urine Clarity Sl Cloudy (Clear)
[2022-10-04 11:06] LABS: Bacteria 1+ /hpf (None Seen); Squamous Epithelial Cells - UA 0-5 SEEN /hpf (5-10); White Blood Cells 5-10 SEEN /hpf (0-5)
[2022-10-04 11:10] LABS: AST(SGOT) 13 U/L (15-37); Alanine Aminotransfer ALT/SGPT 20 U/L (13-56); Albumin, Serum 3.4 g/dL (3.2-5.0); Alkaline Phosphatase 97 U/L (45-117); Anion Gap 6 (5-15); BUN 19 mg/dL (7-18); BUN/Creat Ratio 20.2 RATIO (10-20); Calcium,Total 8.7 mg/dL (8.5-10.1); Chloride 110 mmol/L (98-107); Cholesterol 126 mg/dL (200); Creatinine, Serum 0.94 mg/dL (0.55-1.02); EST Glomerular Filtration Rate 63 mL/min (>60); Est Glom Filt Rate - Afr Amer 77 mL/min (>60); Globulin 3.5 g/dL (2.2-4.2); Glucose 117 mg/dL (74-106); High Density Lipoprotein 36 mg/dL; Potassium 4.2 mmol/L (3.5-5.1); Protein, Total 6.9 g/dL (6.4-8.2); Sodium Level 141 mmol/L (136-145); Thyroid Stim Hormone (TSH) 1.65 uIU/mL (0.358-3.74); Triglycerides 161 mg/dL; Very Low Density Lipoprotein 32 mg/dL (5-40)
[2022-10-04 11:18] LABS: Hemoglobin A1c 6.3 % (3.8-5.6)
[2022-10-06 08:04] LABS: Vitamin D,25 Hydroxy 60.9 ng/mL
== END | disposition home or self-care (01) ==
LOC: LAB 10:01
PROVIDERS: PCP Internal Medicine; Visit Provider Internal Medicine
DX: E11.9 Type 2 diabetes mellitus without complications (principal); E78.2 Mixed hyperlipidemia; E55.9 Vitamin D deficiency, unspecified; E53.8 Deficiency of other specified B group vitamins; I10 Essential (primary) hypertension; E04.1 Nontoxic single thyroid nodule
CPT/HCPCS: 36415; 80053; 80061; 81001; 82306; 83036; 84443; 85025

== ENCOUNTER → 2022-11-29 | Outpatient (CLI) | payer BC, SELFPAY ==
--- NOTE | 2022-11-29 09:05 | US_ITS ---
EXAM: US SOFT TISSUES HEAD AND NECK, THYROID CLINICAL INDICATION: thyroid nodules, due in november -- thyroid nodules, due in november TECHNIQUE: Greyscale and color doppler imaging was performed of the thyroid gland. COMPARISON: Thyroid ultrasound, 11/27/2020 and 11/29/2021. FINDINGS: LEFT THYROID LOBE: The left thyroid lobe measures 4.2 x 1.8 x 1.5 cm. 0.9 cm mid left thyroid nodule. This nodule is solid or almost completely solid, hyperechoic or isoechoic, eflvw-achz-sdzw, ill-defined and contains no echogenic foci. TI-RADS points: 3. TI-RADS category: TR3. This nodule is mildly suspicious but no FNA or follow-up is necessary given the small size of this nodule. 0.3 cm left thyroid nodule. This nodule is solid or almost completely solid, hypoechoic, zrivk-uafo-mque, smoothly marginated and contains no echogenic foci. TI-RADS points: 4. TI-RADS category: TR4. This nodule is moderately suspicious but no FNA or follow-up is necessary given the small size of this nodule. RIGHT THYROID LOBE: The right thyroid lobe measures 4.4 x 1.8 x 1.4 cm. 0.9 cm mid right thyroid lobe nodule. This nodule is solid or almost completely solid, hypoechoic, qicgo-[id number], smoothly marginated and contains no echogenic foci. TI-RADS points: 4. TI-RADS category: TR4. This nodule is moderately suspicious but no FNA or follow-up is necessary given the small size of this nodule. ISTHMUS: The thyroid isthmus measures 0.3 cm. No thyroid nodules are present. US/Thyroid IMPRESSION: 1. 0.9 cm mid right thyroid lobe nodule. This nodule is solid or almost completely solid, hypoechoic, mmrmy-yldg-cije, smoothly marginated and contains no echogenic foci. TI-RADS points: 4. TI-RADS category: TR4. This nodule is moderately suspicious but no FNA or follow-up is necessary given the small size of this nodule. 2. 0.9 cm mid left thyroid nodule. This nodule is solid or almost completely solid, hyperechoic or isoechoic, piodz-bheo-xytx, ill-defined and contains no echogenic foci. TI-RADS points: 3. TI-RADS category: TR3. This nodule is mildly suspicious but no FNA or follow-up is necessary given the small size of this nodule. 3. 0.3 cm left thyroid nodule. This nodule is solid or almost completely solid, hypoechoic, qyfab-iuhr-shub, smoothly marginated and contains no echogenic foci. TI-RADS points: 4. TI-RADS category: TR4. This nodule is moderately suspicious but no FNA or follow-up is necessary given the small size of this nodule. Electronically Signed: Domenic Hoyt DO at 13:31 EDT ,
--- NOTE | 2022-11-29 09:05 | US_ITS ---
STUDY: ABDOMINAL ULTRASOUND - RIGHT UPPER QUADRANT; ELASTOGRAPHY REASON FOR VISIT: Female, 67 years old. Fatty infiltration of the liver. TECHNIQUE: Ultrasound evaluation of the right upper quadrant was performed with real-time and static arteaga-scale imaging. Point quantification shear wave elastography was performed ([employer]). TECHNICAL QUALITY: Adequate. COMPARISON: Comparison is made with prior study dated November 29, 2021. FINDINGS: Liver: The liver measures 18 cm. There is increased echogenicity consistent with fatty infiltration. The bile ducts are within normal limits. There is hepatic color flow. The direction of portal flow is hepatopetal. There is a 2 cm x 2.3 cm x 2 cm hypoechoic nodule in the left lobe of the liver. A similar appearing nodular density measuring 1.8 cm x 1.1 cm by 0.8 some is also seen in the left lobe. There is also evidence of a 3 cm x 1.6 cm x 1.3 cm echogenic nodule in the right lobe of the liver. This may represent a small hemangioma. These are unchanged. Median liver stiffness measured 7.4 kPa. Gallbladder: Normal distended gallbladder. The gallbladder wall measures 2.4 mm. There is a negative sonographic Cabrera''s sign. There is no pericholecystic fluid. There are no gallstones. Common Bile Duct (C.B.D.): The common bile duct measures 4.5 mm. Pancreas: There is normal echogenicity of the visualized pancreas. There is no demonstrated pancreatic mass or cyst. Right Kidney: Normal size of the right kidney. The right kidney measures 10.9 cm x 5.1 cm x 5 cm. Normal renal cortex. The right cortex measures 2.0 cm. There is a 2.9 cm right 2.1 cm x 2.1 cm right renal cyst. There is no right hydronephrosis. US/ABD Limited w/ Elastography IMPRESSION: 1. Liver stiffness measures 7.4 kPa compatible with F2-F3 (Mild to moderate liver fibrosis) Metavir score. 2. Stable appearance of the nodular densities in the liver as described. Electronically Signed: Jacob Hagan MD at 8:47 EDT ,
== END | disposition home or self-care (01) ==
LOC: US 09:02
PROVIDERS: PCP Internal Medicine; Referring Provider Internal Medicine; Visit Provider Internal Medicine
DX: E04.1 Nontoxic single thyroid nodule (principal); K76.0 Fatty (change of) liver, not elsewhere classified
CPT/HCPCS: 91200; 76536; 76705; 76981

== ENCOUNTER → 2022-12-15 | Outpatient (CLI) | payer BC, SELFPAY ==
--- NOTE | 2022-12-15 07:56 | BI_ITS ---
MAMMOGRAPHY - BILATERAL SCREENING REASON FOR EXAM: Female, 67 years old. Routine annual screening examination. PERTINENT HISTORY: Sister with breast cancer. TECHNIQUE: Digital bilateral breast esau (3D mammographic acquisition) in the CC and MLO projections. 2-D mediolateral oblique (MLO) and craniocaudad (CC) views of both breasts were obtained. CAD: Full Field Digital Mammography with Computer Added Detection was performed. COMPARISON: Comparison is made with prior study dated December 10, 2021 and November 27, 2020. FINDINGS: Breast Composition: There are scattered areas of fibroglandular density. There are no dominant masses or suspicious calcifications. Stable small benign appearing bilateral axillary lymph nodes. No other significant abnormalities are identified. There has been no significant change since the prior study. BI/SCRN MAMM (CAD)W/ESAU BILAT IMPRESSION: Stable bilateral screening mammogram. Yearly follow-up mammogram recommended. (A) ASSESSMENT CATEGORY: BIRADS Category 2: Benign. A letter regarding these results will be sent to the patient by the facility within 30 days. Approximately 10% of breast cancers are not detected by mammography. A normal mammogram should not delay biopsy of a clinically suspicious abnormality. [id number] Electronically Signed: Jacob Hagan MD at 13:40 EDT ,
== END | disposition home or self-care (01) ==
LOC: OPBI 07:55
PROVIDERS: PCP Internal Medicine; Referring Provider Internal Medicine; Visit Provider Internal Medicine
DX: Z12.31 Encounter for screening mammogram for malignant neoplasm of breast (principal); Z80.3 Family history of malignant neoplasm of breast
CPT/HCPCS: 77063; 77067

== ENCOUNTER → 2023-02-16 | Outpatient (CLI) | payer BC, SELFPAY | END | disposition home or self-care (01) | PROVIDERS: PCP Internal Medicine; Referring Provider Internal Medicine; Visit Provider Internal Medicine | DX: I49.9 Cardiac arrhythmia, unspecified (principal) | CPT/HCPCS: 93225; 93226 ==

== ENCOUNTER 2023-03-24 08:12 | Emergency (ER) | payer BC, SELFPAY ==
[2023-03-24 08:12] VITALS: BP 182/112; PULSE 63; RESP 15; TEMP 36.4; O2SAT 94; BMI 42.5
--- NOTE | 2023-03-24 08:44 | EX.ED.DYSGE1 ---
HPI History of Present Illness Chief Complaint: Palpitations Informant: patient Narrative Narrative: Patient presents with a clicking feeling in her chest intermittently. It sounds like she has had some palpitations or flip-flops going on for many months. She has been having clicking and occasional palpitations that are not necessarily together for the last month and a half. She did see her primary physician. She had a 48-hour Holter monitor. It showed some increased heart rates but evidently no other abnormality. She was told to extra atenolol if it is doing a lot. She is not seeing cardiology now. She does not get symptoms such as lightheadedness chest pain dyspnea nausea vomiting or diaphoresis with these. She just feels the clicking. She was feeling it while I was in the room and listening to her heart. Her heart sounded very regular at the time. No muffled tones. Patient states that she has had her heart going fast. But on her chart I see that there is a diagnosis of atrial fibrillation. But that is not something that she mentions or knows. She is not on any blood thinners other than aspirin. She is not in A-fib now. [facility] Medical History A-fib Acid reflux Arthritis Fatigue Hypertension Knee pain Laceration of right knee Numbness and tingling Sleep apnea Home Medications atenolol 25 mg tablet 25 mg PO DAILY bp 02/08/16 [History Last Taken 12/30/17] amlodipine 10 mg-olmesartan 40 mg tablet 1 tab PO DAILY bp 09/03/18 [History Last Taken Unknown] aspirin 81 mg tablet,delayed release (Adult Low Dose Aspirin) 162 mg PO DAILY 09/03/18 [History Last Taken Unknown] rosuvastatin 5 mg tablet 10 mg PO DAILY cholesterol 09/03/18 [History Last Taken Unknown] famotidine 20 mg tablet 20 mg PO DAILY 01/31/21 [History Last Taken Unknown] Allergy/AdvReac Type Severity Reaction Status Date / Time No Known Allergies Allergy Verified 02/15/21 13:57 Family History Sister Asthma Hypertension High cholesterol Bladder cancer CML (chronic myelocytic leukemia) Mother Colon cancer Diabetes Father Asthma Arthritis Brother Asthma Surgical History History of left knee replacement Hx of colonoscopy Hx of dilation and curettage Hx of hysterectomy Social History Smoking Status: Never smoker second hand exposure: No alcohol intake: never substance use type: does not use caffeine: No what type of physical activity do you participate in: none frequency: does not exercise ROS ROS ED ROS Narrative A complete review of systems was performed and is negative except as documented in the history of present illness. Some specific details below. Constitutional: No recent fevers or chills. No malaise. She does not feel ill when this happens. EYE: No visual changes. ENT: No difficulty swallowing. No swelling. No pain. No reflux symptoms. CV: See history of present illness. Patient does report that her heart is enlarged. Respiratory: No dyspnea. GI: No abdominal pain. No nausea vomiting diarrhea. No blood in stool. : No frequency dysuria or hematuria. Musculoskeletal: No recent trauma. No pains. No swelling. Skin: No rash. Nondiaphoretic. Neuro: No weakness or numbness. Endocrine: No polyuria or polydipsia. EXAM Physical Exam Narrative Exam Narrative: CONSTITUTIONAL: Patient is nontoxic in appearance. The patient looks comfortable. Work of breathing looks normal. HEENT: No notable trauma. Mucous membranes moist. No sinus tenderness. No indication of pain with swallowing. EYES: No conjunctival injection. No proptosis. NECK:No JVD. No stridor. CARDIOVASCULAR: Regular rate. Regular rhythm. No notable murmur. No JVD. She has the clicking while I listen to her but her heart rhythm sounds quite regular. I do not hear a murmur. Overall exam is normal. Peripheral pulses are also normal. RESPIRATORY: No respiratory distress. Breathing is unlabored. No wheezes. No rhonchi. No rales. No pain with a deep breath. No chest wall tenderness. GASTROINTESTINAL: Not distended. Bowel sounds are normal. No tenderness. GENITOURINARY: No CVA tenderness. MUSCULOSKELETAL: Atraumatic. No peripheral edema. No cord. No tenderness along the deep venous system. No asymmetry. No distended veins. NEUROLOGICAL: Patient is alert and appropriate. No focal deficit noted. SKIN: No noted rashes. No diaphoresis. PSYCHIATRIC: Patient is calm. Mood is appropriate. Const Vital Signs: 03/24/23 08:12 03/24/23 08:57 03/24/23 10:15 Temperature 97.5 F L Temperature Source Temporal Pulse Rate 63 59 L 53 L Respiratory Rate 15 17 21 H Blood Pressure 182/112 H 162/70 H 134/78 H Blood Pressure Mean 135 100 96 Pulse Ox 94 96 98 Oxygen Delivery Method Room Air Room Air Room Air 03/24/23 10:15 Temperature Temperature Source Pulse Rate 53 L Respiratory Rate 21 H Blood Pressure 134/78 H Blood Pressure Mean 96 Pulse Ox 98 Oxygen Delivery Method MDM MDM MDM Narrative Medical decision making narrative: Able to access the patient's outpatient Holter from 02/16/2023 that showed no marked abnormalities. I also accessed a prior Holter from 2017 that showed no marked abnormalities. I also accessed a echocardiogram from 2015 that showed no marked abnormalities. Patient's BC is normal. Sign of anemia. Electrolytes show no marked abnormalities. Glucose is just a tiny bit up and this can be followed. Slight BUN to creatinine ratio increase but this with by creased fluids. My independent interpretation of the patient's single view chest x-ray showed no acute process. Final reading does show some stable mild cardiomegaly. She had stated she had this. But there is no sign of acute or active disease. Patient states she notices the clicking mostly when she lays down. If she is busy she does not notice it. Activity makes it better. I think she is safe for discharge. She has never had chest pain dyspnea nausea vomiting or diaphoresis. I do not think troponin is needed. She will follow-up with her primary physician. Her symptoms could be related to things such as mitral valve prolapse or calcification of valves. She may benefit from a repeat echo. But this can be done as an outpatient. Lab Data Attestation: I reviewed the patient's lab results. Labs: Laboratory Results - last 24 hr 03/24/23 03/24/23 03/24/23 08:55 08:55 09:20 WBC Cancelled 7.1 Corrected WBC Cancelled RBC Cancelled 5.44 H Hgb Cancelled 15.0 Hct Cancelled 45.7 MCV Cancelled 84.0 MCH Cancelled 27.6 MCHC Cancelled 32.8 RDW Std Deviation Cancelled 39.8 RDW Coeff of Onel Cancelled 13.1 Plt Count Cancelled 248 MPV Cancelled 9.5 Immature Gran % (Auto) Cancelled 0.400 Neut % (Auto) Cancelled 57.2 Lymph % (Auto) Cancelled 33.5 [place] % (Auto) Cancelled 5.9 Eos % (Auto) Cancelled 2.4 Baso % (Auto) Cancelled 0.6 Absolute Neuts (auto) Cancelled 4.1 Absolute Lymphs (auto) Cancelled 2.37 Total Counted Cancelled Neutrophils % (Manual) Cancelled Band Neutrophils % Cancelled Lymphocytes % (Manual) Cancelled Monocytes % (Manual) Cancelled Eosinophils % (Manual) Cancelled Basophils % (Manual) Cancelled Metamyelocytes % Cancelled Myelocytes % Cancelled Promyelocytes % Cancelled Blast Cells % Cancelled Plasma Cell % (Manual) Cancelled Other Cells % Cancelled Nucleated RBC % Cancelled 0 Nucleated RBCs/100 WBC Cancelled Differential Comment Cancelled Diff Path Review Cancelled Hypersegmented Neuts Cancelled Atypical Lymphocytes Cancelled Reactive Lymphocytes Cancelled Smudge Cells Cancelled Toxic Granulation Cancelled Toxic Vacuolation Cancelled Dohle Bodies Cancelled Brian Rods Cancelled Platelet Estimate Cancelled Plt Morphology Comment Cancelled RBC Morphology Cancelled Cancelled Polychromasia Cancelled Hypochromasia Cancelled Poikilocytosis Cancelled Basophilic Stippling Cancelled Anisocytosis Cancelled Microcytosis Cancelled Macrocytosis Cancelled Spherocytes Cancelled Sickle Cells Cancelled Target Cells Cancelled Tear Drop Cells Cancelled Ovalocytes Cancelled Stomatocytes Cancelled Gallegos-Gowen Bodies Cancelled Jenni Cells Cancelled Bite Cells Cancelled Crenated Cell Cancelled Acanthocytes (Spur) Cancelled Rouleaux Cancelled Schistocytes Cancelled Sodium 139 Potassium 4.7 Chloride 110 H Carbon Dioxide 25.0 Anion Gap 4 L BUN 17 Creatinine 0.83 Estim Creat Clear Calc 55.15 Est GFR (MDRD) Af Amer 89 Est GFR (MDRD) Non-Af 73 BUN/Creatinine Ratio 20.5 H Glucose 124 H Calcium 9.2 Radiography Diagnostic Testing: Clinical Impression(s) from Imaging Studies Chest X-Ray 03/24/23 09:00 IMPRESSION: Stable chest with no acute or active cardiopulmonary disease. Electronically Signed: Bony Lam MD at 9:23 EST , EKG Initial EKG: Comments: My independent interpretation of the patient's EKG shows normal sinus rhythm with overall rate of 60. No ventricular ectopy. No acute ST elevation or depression. NE interval was borderline at 200 ms. QRS duration and QTc are normal. Discharge Plan Triage Chief Complaint: Palpitations ED Provider: Hair Olguin Dx/Rx/DC Orders Clinical Impression: Abnormal cardiac sounds, History of palpitations Instructions: ED Palpitations Prescriptions: No Action aspirin [Adult Low Dose Aspirin] 81 mg tablet,delayed release (DR/EC) 162 mg PO DAILY atenolol 25 MG tablet 25 mg PO DAILY Patient Comments: BP amlodipine-olmesartan 10-40 mg tablet 1 tab PO DAILY rosuvastatin 5 mg tablet 10 mg PO DAILY famotidine 20 mg tablet 20 mg PO DAILY Primary Care Provider: Candida Demarco Referrals: Candida Demarco, [Primary Care Provider] - 3-5 Days Disposition Disposition: Home, Self Care
[2023-03-24 08:57] VITALS: BP 162/70; PULSE 59; RESP 17; O2SAT 96
--- NOTE | 2023-03-24 09:00 | RAD_ITS ---
STUDY: X-RAY CHEST REASON FOR EXAM: Female, 67 years old. Palpitations. TECHNIQUE: Single frontal view of the chest. COMPARISON: August 10, 2020. FINDINGS: The lungs are clear and expanded. There is no demonstrated pleural abnormality. Stable mild cardiomegaly. Normal mediastinum and jennifer. Normal visualized pulmonary arteries. Aortic tortuosity with calcification unchanged. Normal visualized thoracic spine. Normal visualized ribs, clavicles, and shoulders. No abnormality of the visualized soft tissue structures of the upper abdomen. RAD/Chest 1 View (Portable) IMPRESSION: Stable chest with no acute or active cardiopulmonary disease. Electronically Signed: Bony Lam MD at 9:23 EST ,
--- NOTE | 2023-03-24 09:09 | NURSING ---
PURPLE TOP NEEDS REDRAWN
[2023-03-24 09:20] LABS: Anion Gap 4 (5-15); BUN 17 mg/dL (7-18); BUN/Creat Ratio 20.5 RATIO (10-20); Calcium,Total 9.2 mg/dL (8.5-10.1); Chloride 110 mmol/L (98-107); Creatinine, Serum 0.83 mg/dL (0.55-1.02); EST Glomerular Filtration Rate 73 mL/min (>60); Est Glom Filt Rate - Afr Amer 89 mL/min (>60); Estimated Creatinine Clearance 55.15 ml/min; Glucose 124 mg/dL (74-106); Potassium 4.7 mmol/L (3.5-5.1); Sodium Level 139 mmol/L (136-145)
[2023-03-24 09:27] LABS: Absolute Lymphocyte Count 2.37 X10^3/uL (0.83-4.51); Absolute Neutrophil Count 4.1 X10^3/uL (2.0-7.7); Basophil# 0.04 X10^3/uL; Basophil% 0.6 % (0-1); Eosinophil# 0.17 X10^3/uL; Eosinophils% 2.4 % (0-5); Hematocrit 45.7 % (37-47); Lymphocyte # 2.37 X10^3/ul (0.83-4.51); Lymphocyte % 33.5 % (19-41); Mean Corp Hgb Conc 32.8 g/dL (32-36); Mean Corpuscular Hgb 27.6 pg (27.0-32.0); Mean Platelet Vol. 9.5 fl (6.2-12.0); Monocyte# 0.42 X10^3/uL; Monocyte% 5.9 % (0-10); NRBC Flagged by Analyzer 0 % (0-5); Neutrophil # 4.05 X10^3/uL (2.7-7.7); Neutrophil % 57.2 % (47-70); Platelet Count 248 K/mm3 (150-450); RBC Distribution Width CV 13.1 % (11.6-14.6); RBC Distribution Width SD 39.8 fl (35.1-43.9); Red Blood Count 5.44 M/mm3 (4.2-5.4); White Blood Count 7.1 K/mm3 (4.4-11.0)
[2023-03-24 10:15] VITALS: BP 134/78; PULSE 53; RESP 21; O2SAT 98
== END 2023-03-24 10:53 | disposition home or self-care (01) ==
PROVIDERS: Emergency Provider Emergency Medicine; PCP Internal Medicine; Visit Provider Emergency Medicine
DX: R00.2 Palpitations (principal); I10 Essential (primary) hypertension; Z79.82 Long term (current) use of aspirin; Z79.899 Other long term (current) drug therapy; K21.9 Gastro-esophageal reflux disease without esophagitis; Z90.710 Acquired absence of both cervix and uterus; Z96.652 Presence of left artificial knee joint
CPT/HCPCS: 71045; 80048; 85025; 93005; 99285; A4216

== ENCOUNTER → 2023-04-15 | Outpatient (CLI) | payer BC, SELFPAY ==
--- NOTE | 2023-04-15 09:51 | ECHOD_ITS ---
Reason For Study: SICK SINUS SYNDROME Procedure This was a 2D Doppler, Color Flow transthoracic echocardiogram. Exam performed in department. Left Ventricle Normal LV size. Left ventricular systolic function is normal. The estimated ejection fraction is 60 %. Stage 1 diastolic dysfunction. No regional wall motion abnormalities noted. Right Ventricle Normal RV size. Normal systolic function. Atria The left atrium is mildly enlarged. Normal right atrium. Mitral Valve Normal mitral valve. Tricuspid Valve Normal tricuspid valve. Mild tricuspid valve insufficiency. Pulmonary artery systolic pressure is 26 mmHg. Aortic Valve Normal aortic valve. Pulmonic Valve Normal pulmonic valve. Great Vessels Normal aortic root. The pulmonary artery is normal size. Normal inferior vena cava. Pericardium/Pleural No pericardial effusion. MMode/2D Measurements & Calculations LVIDd: 4.7 cm IVSd: 0.90 cm Ao root diam: 3.8 cm LVIDs: 3.1 cm LVPWd: 0.94 cm RVDd: 2.1 cm FS: 34.3 % LAV(MOD-bp): 72.7 ml LVAd ap4: 30.1 cm2 LVAd ap2: 26.1 cm2 LAV(MOD-bp) Indexed: 34.5 ml/m2 LVLd ap4: 8.0 cm LVLd ap2: 7.8 cm LAV(MOD-sp2): 69.3 ml EDV(MOD-sp4): 92.2 ml EDV(MOD-sp2): 74.5 ml LAV(MOD-sp4): 69.1 ml EDV(sp4-el): 95.6 ml EDV(sp2-el): 74.1 ml LVAs ap4: 18.0 cm2 LVAs ap2: 14.6 cm2 LVLs ap4: 6.8 cm LVLs ap2: 6.3 cm ESV(MOD-sp4): 39.9 ml ESV(MOD-sp2): 30.2 ml ESV(sp4-el): 40.8 ml ESV(sp2-el): 28.8 ml EF(MOD-sp4): 56.7 % EF(MOD-sp2): 59.5 % EF(sp4-el): 57.3 % SV(MOD-sp4): 52.3 ml SV(MOD-sp2): 44.3 ml SV(sp4-el): 54.8 ml LA dimension(2D): 4.4 cm LA A4 area: 21.3 cm2 RA A4 area: 12.7 cm2 TAPSE: 2.6 cm Time Measurements MV dec time: 0.25 sec Doppler Measurements & Calculations MV E max heri: 92.8 cm/sec Lat Peak E' Heri: 9.3 cm/sec Med Peak E' Heri: 8.2 cm/sec MV A max heri: 124.7 cm/sec E/E' lat: 10.0 E/E' med: 11.3 MV E/A: 0.74 MV V2 max: 133.7 cm/sec MV P1/2t max heri: 107.1 cm/sec Ao V2 max: 173.8 cm/sec MV max P.1 mmHg MV P1/2t: 60.6 msec Ao max P.1 mmHg MV V2 mean: 79.7 cm/sec MV dec slope: 517.9 cm/sec2 Ao V2 mean: 120.5 cm/sec MV mean P.9 mmHg Ao mean P.6 mmHg MV V2 VTI: 32.7 cm MVA(P1/2t): 3.6 cm2 Ao V2 VTI: 38.6 cm AV (velocity ratio): 0.68 LV V1 max: 119.0 cm/sec PA V2 max: 103.2 cm/sec TR max heri: 233.2 cm/sec LV V1 max P.7 mmHg PA V2 mean: 69.2 cm/sec TR max P.0 mmHg LV V1 mean P.0 mmHg LV V1 mean: 81.6 cm/sec LV V1 VTI: 26.3 cm ECHO/Echo Complete Interpretation Summary Normal LV size. Left ventricular systolic function is normal. The estimated ejection fraction is 60 %. Stage 1 diastolic dysfunction. Structurally normal valves. Ordering Physician: Candida Demarco Referring Physician: Candida Demarco Performed By: Anuja Potter, RDCS, RVT
== END | disposition home or self-care (01) ==
LOC: CVS 09:50
PROVIDERS: PCP Internal Medicine; Referring Provider Internal Medicine; Visit Provider Internal Medicine
DX: I49.5 Sick sinus syndrome (principal)
CPT/HCPCS: 93306

== ENCOUNTER → 2023-07-14 | Outpatient (CLI) | payer BC, SELFPAY ==
--- NOTE | 2023-07-16 11:43 | STRESSREP_ITS ---
Stress Test Report Date: 07/14/2023 Procedure: Exercise tolerance test/imaging study Indications: Coronary artery disease Consent: Per the patient Procedure: The patient exercised on a Jimmie protocol for 4 minutes achieving a peak heart rate of 153 bpm (99% predicted maximal heart rate) with a peak blood pressure 164/98 mmHg and a peak MET capacity of 7.0 METs. The baseline ECG demonstrated sinus rhythm. The peak exercise ECG demonstrated no ischemic changes. Occasional PVCs noted during exercise. The functional capacity was considered suboptimal. There was no complaint of chest discomfort during exercise or recovery. The examination was discontinued secondary to target heart rate being achieved and dyspnea. The patient was injected with 14.9 mCi of technetium 99m Cardiolite and subsequently rest SPECT Cardiolite nuclear imaging was obtained in the horizontal long, vertical long, and short axis views. Post-exercise, the patient was injected with 44.8 mCi of technetium 99m Cardiolite and subsequently stress SPECT Cardiolite nuclear imaging was obtained in the horizontal long, vertical long, and short axis views. A gated Cardiolite study at peak stress was obtained. Rest and stress SPECT Cardiolite nuclear imaging status post realignment, normalization, and attenuation correction, demonstrates the appearance of relat fay uniform tracer uptake and myocardial perfusion appearing within normal limits. There is end systolic thickening and brightening. The gated Cardiolite study demonstrates myocardial thickening and inward wall motion. The reported LVEF is 74%. Impression: 1. Technically adequate (percent predicted maximal heart rate greater than 85%) exercise tolerance test 2. Peak exercise ECG with no ischemic changes 3. Occasional PVCs noted with exercise 4. Rest and stress SPECT Cardiolite nuclear imaging demonstrate relative uniform tracer uptake and myocardial perfusion appearing within normal limits. 5. The gated Cardiolite study reports an LVEF of 74%. This note was generated with [employer] software. It may contain incorrect words, spelling, and punctuation that were not noted in checking the note before signing.
== END | disposition home or self-care (01) ==
LOC: CVS 06:17
PROVIDERS: PCP Internal Medicine; Referring Provider Internal Medicine Cardiovascular Disease; Visit Provider Internal Medicine Cardiovascular Disease
DX: R93.1 Abnormal findings on diagnostic imaging of heart and coronary circulation (principal); I51.89 Other ill-defined heart diseases; R79.82 Elevated C-reactive protein (CRP); R53.83 Other fatigue
CPT/HCPCS: 78452; 93017; A9500; J2785

== ENCOUNTER → 2024-04-18 | Outpatient (CLI) | payer BC, SELFPAY ==
--- NOTE | 2024-04-18 12:22 | BI_ITS ---
MAMMOGRAPHY - BILATERAL SCREENING REASON FOR EXAM: Female, 68 years old. Routine annual screening examination. PERTINENT HISTORY: Sisters with breast cancer. TECHNIQUE: Digital bilateral breast esau (3D mammographic acquisition) in the CC and MLO projections. 2-D mediolateral oblique (MLO) and craniocaudad (CC) views of both breasts were obtained. CAD: Full Field Digital Mammography with Computer Added Detection was performed. COMPARISON: Comparison is made with prior study December 15, 2022 and December 10, 2021. FINDINGS: Breast Composition: There are scattered areas of fibroglandular density. There are no dominant masses or suspicious calcifications. No other significant abnormalities are identified. There has been no significant change since the prior study. BI/SCRN MAMM (CAD)W/ESAU BILAT IMPRESSION: Stable bilateral screening mammogram. Yearly follow-up mammogram recommended. (A) ASSESSMENT CATEGORY: BIRADS Category 1: Negative. A letter regarding these results will be sent to the patient by the facility within 30 days. Approximately 10% of breast cancers are not detected by mammography. A normal mammogram should not delay biopsy of a clinically suspicious abnormality. [id number] Electronically Signed: Jacob Hagan MD at 13:26 EST ,
== END | disposition home or self-care (01) ==
LOC: OPBI 12:20
PROVIDERS: PCP Internal Medicine; Referring Provider Internal Medicine; Visit Provider Internal Medicine
DX: Z12.31 Encounter for screening mammogram for malignant neoplasm of breast (principal); Z80.3 Family history of malignant neoplasm of breast
CPT/HCPCS: 77063; 77067

== ENCOUNTER → 2024-05-16 | Outpatient (CLI) | payer MEDICARE, BC, SELFPAY ==
--- NOTE | 2024-05-16 08:18 | US_ITS ---
PROCEDURE: Thyroid ultrasound. REASON FOR EXAM: Thyroid nodule COMPARISON: 11/29/2022 PROCEDURE: Ultrasound grayscale images of the thyroid were obtained. FINDINGS: The right thyroid lobe is 4.3 x 1.9 x 1.4 cm. The left thyroid lobe is 4.0 x 2.0 x 1.5 cm. The isthmus is 3 mm in the AP dimension. The included cervical soft tissues are grossly unremarkable. A gently lobulated well-marginated 9 mm maximum dimension hypoechoic nodule, with internal debris/echogenicity anterior mid right thyroid lobe is demonstrated. This appears to contain some internal blood flow on Doppler evaluation. No discrete microcalcifications. The nodule is stable in size compared to 11/29/2022. There are 2 hypoechoic nodules in the left thyroid lobe, ranging in size from 6- 9 mm. The 9 mm heterogeneous hypoechoic nodule anterior mid left thyroid lobe is not significantly changed in size compared to 11/29/2022. Minimal internal blood flow on Doppler evaluation. No internal calcifications are demonstrated. A 6 mm fairly well-marginated hypoechoic nodule inferior left thyroid lobe is also not significantly changed in size. No definite new thyroid nodule is demonstrated. US/Thyroid IMPRESSION: The bilateral hypoechoic thyroid nodules, measuring up to 9 mm in both thyroid lobes, not significantly changed compared to the 11/29/2022 study. No dominant thyroid lesion or mass. Suggest follow-up thyroid ultrasound in 1 year to document stability. Reading [facility]
--- NOTE | 2024-05-16 08:18 | US_ITS ---
PROCEDURE: ABDOMEN LIMITED REASON FOR EXAM: Fatty infiltration of the liver. COMPARISON: Comparison is made with prior study dated November 29, 2022. FINDINGS: Liver: Diffusely echogenic suggesting fatty infiltration. The liver measures 17 cm. Stable 1.5 cm x 1.5 cm 1.3 cm echogenic nodule in the right lobe suggestive of a hemangioma. Stable 2 adjacent hypoechoic nodules in the left lobe of the liver. Gallbladder: No stones, sludge, wall thickening or tenderness. Common bile duct: Normal measuring . Pancreas: Visualized portions are sonographically unremarkable. Visualized portions of the right kidney are unremarkable. Stable 2.9 cm x 2.1 cm x 2.1 cm right renal cyst. No right upper quadrant ascites. US/Abdomen Limited IMPRESSION: Fatty infiltration of the liver. Stable hypoechoic nodules in the left lobe as well as echogenic nodule in the r ight lobe. Reading Location: [id number]
== END | disposition home or self-care (01) ==
PROVIDERS: PCP Internal Medicine; Referring Provider Internal Medicine; Visit Provider Internal Medicine
DX: K76.0 Fatty (change of) liver, not elsewhere classified (principal); E04.1 Nontoxic single thyroid nodule
CPT/HCPCS: 76536; 76705

== ENCOUNTER → 2024-07-05 | Outpatient (CLI) | payer MEDICARE, BC, SELFPAY ==
--- NOTE | 2024-07-05 07:22 | US_ITS ---
PROCEDURE: [facility] 07/05/2024 REASON FOR EXAM: FATTY LIVER COMPARISON: 05/16/2024 TECHNIQUE: [employer] S-shear wave elastography was performed for non-invasive assessment of liver tissue stiffness. FINDINGS: Number of measurements: 15 measurements across 3 regions, 5 measurements per region. US probe: CA1-7A. EQI median: 4.6-4.7 kPa EQI median velocity: 1.23-1.24 m/s IQR/Med: 8.7-18.5% (kPa) and 4.5-9.7% (m/s). If the IQR/Med is IQR/median >30% (for kPa) or >15% in m/s, the variance in the measurements is a large and the accuracy of the measurement may be in question. US/Elastography Parenchyma/Organ IMPRESSION: 1. Liver stiffness is 4.7 kPa. Per the below 2020 SRU criteria, this indicates a high probability of being normal. 2. Additional description as above. Assessment is per the Update to the SRU Liver Elastography Consensus Statement (2020) Note that the above assessment of liver fibrosis is vendor-neutral and intended for use in fibrosis related to viral etiologies and non-alcoholic fatty-liver disease (NAFLD); in causes other than viral hepat itis and NAFLD, the cutoff values are currently not well established. In some patients with NAFLD, the cutoff values for cACLD may be lower (7-9 kPa). Note also that in the setting of elevated LFTs, nonfasting or vascular congestion, the stage of lifer fibrosis may be overestimated. Previous SRU reference values: <1.37 m/s (5.7kPa): No to mild fibrosis 1.37 m/s - 2.2 m/s: Moderate to severe fibrosis >2.2 m/s (15kPa): Significant fibrosis / cirrhosis Reading Location: [id number]
== END | disposition home or self-care (01) ==
LOC: US 07:22
PROVIDERS: PCP Internal Medicine; Referring Provider Internal Medicine; Visit Provider Internal Medicine
DX: K76.0 Fatty (change of) liver, not elsewhere classified (principal)
CPT/HCPCS: 91200; 76981

== ENCOUNTER 2024-07-23 14:51 | Emergency (ER) | payer MEDICARE, BC, SELFPAY ==
[2024-07-23] VITALS (8 sets, daily range): BP systolic 118–154; BP diastolic 52–107; PULSE 57–67; RESP 11–16; TEMP 36.4; O2SAT 96–100; BMI 41.1
--- NOTE | 2024-07-23 15:18 | EKG12_ITS ---
Test Reason : CP Blood Pressure : */* mmHG Vent. Rate : 58 BPM Atrial Rate : 58 BPM P-R Int : 188 ms QRS Dur : 78 ms QT Int : 434 ms P-R-T Axes : 53 4 20 degrees QTcB Int : 426 ms Sinus bradycardia Otherwise normal ECG Confirmed by Viraj Fernando ([id number]), assistant production editor KARTIK LUCAS ([id number]) on 07/29/2024 12:58:05 PM Referred By: Candida Demarco Confirmed By: Viraj Fernando
--- NOTE | 2024-07-23 15:23 | ED.VIS.CHEST ---
HPI <CLARENCE Escalante - Last Filed: 07/23/24 20:08> History of Present Illness Chief Complaint: Chest Pain Narrative Narrative: Patient presenting today due to an episode of midsternal chest pressure that radiated to her back that started about 30 minutes prior to arrival. She was saying goodbye to her grandchildren when the pain started. She was not exerting herself. She reports that the pain lasted about 10 minutes and then subsided. She is currently asymptomatic. She had a echocardiogram and stress test last year. She has followed with cardiology in the past due to intermittent palpitations, she had a Holter monitor that showed occasional PACs and PVCs. She reports a history of, A-fib but has never actually been diagnosed with this. Otherwise she has a PMH of HTN, HLD, and ESTEPHANIA. PE Risk Factors: Negative for Recent Travel/Surgery, Recent Immobilization, Prior DVT or PE or Cancer PFSH <CLARENCE Escalante - Last Filed: 07/23/24 20:08> [facility] Medical History Palpitations DM type 2 (diabetes mellitus, type 2) GERD (gastroesophageal reflux disease) Fatty liver Neuropathy Thyroid nodule Bilateral carpal tunnel syndrome Elevated high sensitivity C-reactive protein ESTEPHANIA (obstructive sleep apnea) Anxiety Hyperlipidemia Overactive bladder Vitamin B12 deficiency Laceration of right knee Urinary tract infection Knee pain Fatigue Sleep apnea Numbness and tingling Arthritis Hypertension A-fib Home Medications ?Medication ?Instructions ?Recorded ?Last Taken ?Type atenolol 25 mg tablet 25 mg PO DAILY bp 02/08/16 07/23/24 History famotidine 20 mg tablet 20 mg PO DAILY 01/31/21 07/23/24 History amlodipine 10 mg tablet 10 mg PO DAILY 04/21/23 07/23/24 History cholecalciferol (vitamin D3) 125 125 mcg PO DAILY 04/21/23 07/22/24 History mcg (5,000 unit) capsule rosuvastatin 10 mg tablet 10 mg PO DAILY 04/21/23 07/22/24 History aspirin 81 mg tablet,delayed 81 mg PO DAILY 04/22/23 07/23/24 History release (Adult Low Dose Aspirin) fluorometholone 0.1 % eye 1 drp ophthalmic (eye) BID 07/23/24 Unknown History drops,suspension Allergy/AdvReac Type Severity Reaction Status Date / Time YANNI Inhibitors Allergy Severe tongue Verified 07/23/24 14:53 swelling omeprazole AdvReac Intermediate Diarrhea Verified 07/23/24 14:53 Penicillins AdvReac Intermediate Rash Verified 07/23/24 14:53 Family History Sister Asthma Hypertension High cholesterol Bladder cancer CML (chronic myelocytic leukemia) CAD (coronary artery disease) stent Mother Colon cancer Diabetes Father Asthma Arthritis Brother Asthma Grandfather Myocardial infarction Other Cancer Surgical History History of carpal tunnel release Hx of colonoscopy Hx of dilation and curettage History of left knee replacement Hx of hysterectomy Social History Smoking Status: Never smoker second hand exposure: No alcohol intake: never substance use type: does not use caffeine: Yes Type: coffee Number of servings: 1 what type of physical activity do you participate in: none frequency: does not exercise ROS <CLARENCE Escalante - Last Filed: 07/23/24 20:08> ROS ED Constitutional Constitutional ED: Denies chills or fever(s) Cardiovascular Cardiovascular: Reports chest pain; Denies palpitations Respiratory/Chest Respiratory/Chest: Denies cough or dyspnea Gastrointestinal Gastrointestinal: Denies abdominal pain, nausea or vomiting Musculoskeletal Musculoskeletal: Denies arthralgias or myalgias Integumentary Denies rash Neurologic Neurologic: Denies weakness EXAM <CLARENCE Escalante - Last Filed: 07/23/24 20:08> Physical Exam Const Vital Signs: 07/23/24 14:51 07/23/24 15:03 07/23/24 15:20 Temperature 97.5 F L Temperature Source Oral Pulse Rate 66 61 Respiratory Rate 16 16 Respiratory Effort Normal Non-Labored Blood Pressure 145/107 H Blood Pressure Mean 119 Pulse Ox 96 100 Oxygen Delivery Method Room Air 07/23/24 15:30 07/23/24 15:37 07/23/24 15:45 Temperature Temperature Source Pulse Rate Respiratory Rate Respiratory Effort Blood Pressure 118/76 145/97 H Blood Pressure Mean 87 112 Pulse Ox 98 98 Oxygen Delivery Method 07/23/24 16:00 07/23/24 17:00 07/23/24 17:52 Temperature 97.5 F L Temperature Source Pulse Rate 63 57 L 67 Respiratory Rate 16 11 L Respiratory Effort Blood Pressure 154/94 H 137/52 H 137/52 H Blood Pressure Mean 114 80 80 Pulse Ox 99 96 98 Oxygen Delivery Method Room Air Room Air Positive well nourished, well developed and no apparent distress General Appearance ED: well developed HEENT Reports normocephalic and head/scalp atraumatic Mouth ED: Yes moist mucous membranes normal Eyes PERRL and EOMs intact bilaterally Neck full ROM and supple Chest Wall inspection of chest normal Resp normal respiratory effort and clear to auscultation bilaterally Cardio regular rate and regular rhythm Peripheral Pulses: radial pulses present bilateral 2+ GI soft to palpation, non-tender, non-distended and no masses Back/Spine normal ROM and normal to inspection Extremity normal to inspection and full ROM Neuro oriented x3, CN's II-XII intact bilaterally, moves all extremities, no focal motor deficits and no sensory deficits noted Sensorium / Orientation: awake and alert Psych mental status grossly normal and thought process normal Skin no rashes or lesions noted and no wounds <Dr. Janes Quigley DO - Last Filed: 07/23/24 19:29> Physical Exam Const Vital Signs: 07/23/24 14:51 07/23/24 15:03 07/23/24 15:20 Temperature 97.5 F L Temperature Source Oral Pulse Rate 66 61 Respiratory Rate 16 16 Respiratory Effort Normal Non-Labored Blood Pressure 145/107 H Blood Pressure Mean 119 Pulse Ox 96 100 Oxygen Delivery Method Room Air 07/23/24 15:30 07/23/24 15:37 07/23/24 15:45 Temperature Temperature Source Pulse Rate Respiratory Rate Respiratory Effort Blood Pressure 118/76 145/97 H Blood Pressure Mean 87 112 Pulse Ox 98 98 Oxygen Delivery Method 07/23/24 16:00 07/23/24 17:00 07/23/24 17:52 Temperature 97.5 F L Temperature Source Pulse Rate 63 57 L 67 Respiratory Rate 16 11 L Respiratory Effort Blood Pressure 154/94 H 137/52 H 137/52 H Blood Pressure Mean 114 80 80 Pulse Ox 99 96 98 Oxygen Delivery Method Room Air Room Air MDM <CLARENCE Escalante - Last Filed: 07/23/24 20:08> [facility] MDM Narrative Medical decision making narrative: Patient presenting today due to an episode of midsternal chest pressure that radiated to the back that started about 30 minutes prior to arrival. Her symptoms lasted 10 minutes and then went away. She is currently asymptomatic. Cardiac workup will be obtained. She has a low modified Raritan score and low Wells score, low suspicion for PE. Her CBC and BMP are unremarkable, initial troponin minimally elevated at 16, this will be repeated. Chest x-ray negative for cardiopulmonary abnormality. Examination not consistent with aortic dissection. Delta troponin unremarkable. On repeat exam she is doing well, she has not had any chest pain while here. She did have a stress test last June that was negative. Recommended to follow-up with PCP and patient will be discharged home in stable condition. Return instructions discussed. Lab Data Attestation: I reviewed the patient's lab results. Labs: Laboratory Results - last 24 hr 07/23/24 07/23/24 15:09 17:09 WBC 8.5 RBC 5.34 Hgb 15.2 H Hct 44.9 MCV 84.1 MCH 28.5 MCHC 33.9 RDW Std Deviation 42.9 RDW Coeff of Onel 14.1 Plt Count 316 MPV 10.2 Immature Gran % (Auto) 0.400 Neut % (Auto) 61.0 Lymph % (Auto) 29.5 [place] % (Auto) 5.8 Eos % (Auto) 2.6 Baso % (Auto) 0.7 Absolute Neuts (auto) 5.2 Absolute Lymphs (auto) 2.51 Nucleated RBC % 0 Sodium 139 Potassium 4.4 Chloride 107 Carbon Dioxide 21.0 Anion Gap 12 BUN 18 Creatinine 0.93 Estim Creat Clear Calc 68.19 Est GFR (MDRD) Non-Af 68 BUN/Creatinine Ratio 19.8 Glucose 130 H Calcium 9.4 Troponin T High Sens 16 H Troponin T Hi Sens 2 Hr 14 Radiography X-Ray: Read by ED Physician Diagnostic Testing: Clinical Impression(s) from Imaging Studies Chest X-Ray 07/23/24 15:26 IMPRESSION: NO ACUTE FINDINGS. Reading Location: [facility] EKG Initial EKG: Comments: 50 bpm, sinus pericardia, no ST elevation, termed by attending ED physician <Dr. Janes Quigley, DO - Last Filed: 07/23/24 19:29> MDM History & Record Review Discussion w/independent historian: Patient and Significant other Additional record(s) reviewed:: Prior outpatient record, Prior ED visit and Prior labs Lab Data Labs: Laboratory Results - last 24 hr 07/23/24 07/23/24 15:09 17:09 WBC 8.5 RBC 5.34 Hgb 15.2 H Hct 44.9 MCV 84.1 MCH 28.5 MCHC 33.9 RDW Std Deviation 42.9 RDW Coeff of Onel 14.1 Plt Count 316 MPV 10.2 Immature Gran % (Auto) 0.400 Neut % (Auto) 61.0 Lymph % (Auto) 29.5 [place] % (Auto) 5.8 Eos % (Auto) 2.6 Baso % (Auto) 0.7 Absolute Neuts (auto) 5.2 Absolute Lymphs (auto) 2.51 Nucleated RBC % 0 Sodium 139 Potassium 4.4 Chloride 107 Carbon Dioxide 21.0 Anion Gap 12 BUN 18 Creatinine 0.93 Estim Creat Clear Calc 68.19 Est GFR (MDRD) Non-Af 68 BUN/Creatinine Ratio 19.8 Glucose 130 H Calcium 9.4 Troponin T High Sens 16 H Troponin T Hi Sens 2 Hr 14 Radiography Diagnostic Testing: Clinical Impression(s) from Imaging Studies Chest X-Ray 07/23/24 15:26 IMPRESSION: NO ACUTE FINDINGS. Reading Location: [id number] Treatment and Re-Evaluation :: I have personally performed a face to face assessment of the patient and have reviewed the NORMAN Note. I performed a substantive portion of the visit including all aspects of the following. My esparza findings include: History is 68-year-old female history of palpitations and hypertension (no documented history of A-fib). Patient was saying about her grandchildren when she experienced about 10-minute episode of pressure in her chest. It radiated to her back. states that she went a back rub it was not helping and he convinced her to come to emergency. She states now she has not symptoms. Exam is afebrile vital signs are stable slightly hypertensive. No acute distress heart regular without murmur lung sounds clear and equal equal pulses upper and lower extremity Medical Decison Making EKG is nonischemic. 2 sets of cardiac enzymes were obtained and are 16 and 14. My independent interpretation of the chest x-ray is no acute process. Patient's had no events on the monitor she has remained asymptomatic. Patient has had negative stress testing in the past. I did recommend following up with cardiology or primary care. Return if worsening Discharge Plan Triage Chief Complaint: Chest Pain ED Midlevel Provider: Adri Arroyo ED Provider: Janes Quigley Dx/Rx/DC Orders Clinical Impression: Chest pain of unknown etiology Instructions: ED Chest Pain, Uncertain Cause Prescriptions: No Action aspirin [Adult Low Dose Aspirin] 81 mg tablet,delayed release (DR/EC) 81 mg PO DAILY rosuvastatin 10 mg tablet 10 mg PO DAILY Patient Comments: PT TAKES AT BEDTIME amlodipine 10 mg tablet 10 mg PO DAILY cholecalciferol (vitamin D3) 125 mcg (5,000 unit) capsule 125 mcg PO DAILY atenolol 25 MG tablet 25 mg PO DAILY Patient Comments: BP famotidine 20 mg tablet 20 mg PO DAILY fluorometholone 0.1 % drops,suspension 1 drp ophthalmic (eye) BID Patient Comments: PT USES NEEDED Primary Care Provider: Candida Demarco Referrals: Candida Demarco DO [Primary Care Provider] - 5-7 Days Activity Restrictions/Additional Instructions: Follow-up with your PCP and return for any other concerns. Print Language: Burmese Disposition Disposition: Home, Self Care Discharge Date/Time: 07/23/24 17:54
--- NOTE | 2024-07-23 15:26 | RAD_ITS ---
PROCEDURE: CHEST PA AND LATERAL 07/23/2024 REASON FOR EXAM: CHEST PAIN TECHNIQUE: Frontal and lateral views of the chest. FINDINGS: Hardware: None Heart: The heart size is normal. Mediastinum: The mediastinal contour is unremarkable. Lungs: The lungs are clear. Bones: The bones are unremarkable. RAD/Chest PA and Lateral IMPRESSION: NO ACUTE FINDINGS. Reading Location: [id number]
[2024-07-23 15:28] LABS: Absolute Lymphocyte Count 2.51 X10^3/uL (0.83-4.51); Absolute Neutrophil Count 5.2 X10^3/uL (2.0-7.7); Basophil# 0.06 X10^3/uL; Basophil% 0.7 % (0-1); Eosinophil# 0.22 X10^3/uL; Eosinophils% 2.6 % (0-5); Hematocrit 44.9 % (37-47); Hemoglobin 15.2 g/dL (12.0-15.0); Lymphocyte # 2.51 X10^3/ul (0.83-4.51); Lymphocyte % 29.5 % (19-41); Mean Corp Hgb Conc 33.9 g/dL (32-36); Mean Corpuscular Hgb 28.5 pg (27.0-32.0); Mean Corpuscular Volume 84.1 fL (81-99); Mean Platelet Vol. 10.2 fl (6.2-12.0); Monocyte# 0.49 X10^3/uL; Monocyte% 5.8 % (0-10); NRBC Flagged by Analyzer 0 % (0-5); Neutrophil # 5.21 X10^3/uL (2.7-7.7); Platelet Count 316 K/mm3 (150-450); RBC Distribution Width CV 14.1 % (11.6-14.6); RBC Distribution Width SD 42.9 fl (35.1-43.9); Red Blood Count 5.34 M/mm3 (4.2-5.4); White Blood Count 8.5 K/mm3 (4.4-11.0)
[2024-07-23 15:58] LABS: Anion Gap 12 (5-15); BUN 18 mg/dL (4-19); BUN/Creat Ratio 19.8 RATIO (10-20); Calcium,Total 9.4 mg/dL (7.6-11.0); Chloride 107 mmol/L (98-108); Creatinine, Serum 0.93 mg/dL (0.70-1.20); EST Glomerular Filtration Rate 68 (>60); Estimated Creatinine Clearance 68.19 ml/min (50-250); Glucose 130 mg/dL (70-99); Potassium 4.4 mmol/L (3.3-5.1); Sodium Level 139 mmol/L (133-145); Troponin T High Sensitivity 16 ng/L (<=14)
[2024-07-23 17:45] LABS: Troponin T High Sens 2 HR 14 ng/L (<=14)
== END 2024-07-23 17:54 | disposition home or self-care (01) ==
PROVIDERS: Physician Assistant; Emergency Provider Emergency Medicine; PCP Internal Medicine; Visit Provider Emergency Medicine
DX: R07.9 Chest pain, unspecified (principal); E11.40 Type 2 diabetes mellitus with diabetic neuropathy, unspecified; I10 Essential (primary) hypertension; E78.5 Hyperlipidemia, unspecified; I49.3 Ventricular premature depolarization; Z79.899 Other long term (current) drug therapy; Z79.82 Long term (current) use of aspirin
CPT/HCPCS: 71046; 80048; 84484; 85025; 93005; 99284; A4216

== ENCOUNTER → 2024-11-22 | Outpatient (CLI) | payer MEDICARE, BC, SELFPAY ==
--- NOTE | 2024-11-22 16:11 | STRESSREP ---
Stress Test Report Date: 11/22/2024 Procedure: Exercise tolerance test/imaging study Indications: Chest pain Consent: Per the patient Procedure: The patient exercised on a Jimmie protocol for 4 minutes and 31 seconds achieving a peak heart rate of 151 bpm (99% predicted maximal heart rate) with a peak blood pressure 190/74 mmHg and a peak MET capacity of 7.0 METs. The baseline ECG demonstrated sinus rhythm. The peak exercise ECG showed sinus tachycardia with no ischemic changes. Occasional PVCs noted during exercise. The functional capacity was considered suboptimal. There was no complaint of chest discomfort during exercise or recovery. The examination was discontinued secondary to target heart rate being achieved and dyspnea. The patient was injected with 13.3 mCi of technetium 99m Cardiolite and subsequently rest SPECT Cardiolite nuclear imaging was obtained in the horizontal long, vertical long, and short axis views. Post-exercise, the patient was injected with 45.0 mCi of technetium 99m Cardiolite and subsequently stress SPECT Cardiolite nuclear imaging was obtained in the horizontal long, vertical long, and short axis views. A gated Cardiolite study at peak stress was obtained. Rest and stress SPECT Cardiolite nuclear imaging status post realignment, normalization, and attenuation correction, demonstrates the appearance of relative uniform tracer uptake and myocardial perfusion appearing within normal limits. There is end systolic thickening and brightening. The gated Cardiolite study demonstrates myocardial thickening and inward wall motion. The reported LVEF is 76%. Impression: 1. Technically adequate (percent predicted maximal heart rate greater than 85%) exercise tolerance test 2. Peak exercise ECG with no ischemic changes 3. No significant cardiac dysrhythmias noted 4. Rest and stress SPECT Cardiolite nuclear imaging demonstrate relative uniform tracer uptake and myocardial perfusion appearing within normal limits. 5. The gated Cardiolite study reports an LVEF of 76%. This note was generated with [employer] software. It may contain incorrect words, spelling, and punctuation that were not noted in checking the note before signing.
== END | disposition home or self-care (01) ==
LOC: CVS 06:55
PROVIDERS: PCP Internal Medicine; Referring Provider Internal Medicine; Visit Provider Internal Medicine
DX: R07.9 Chest pain, unspecified (principal)
CPT/HCPCS: 78452; 93017; A9500; A4216

== ENCOUNTER → 2024-12-31 | Outpatient (CLI) | payer MEDICARE, BC, SELFPAY ==
[2024-12-31 10:46] LABS: Hematocrit 42.8 % (37-47); Hemoglobin 14.4 g/dL (12.0-15.0); Immature Granulocytes Count 0.020 X10^3/uL (0.0-0.0); Mean Corp Hgb Conc 33.6 g/dL (32-36); Mean Corpuscular Volume 82.5 fL (81-99); Mean Platelet Vol. 10.0 fl (6.2-12.0); NRBC Flagged by Analyzer 0 % (0-5); Platelet Count 256 K/mm3 (150-450); RBC Distribution Width CV 12.6 % (11.6-14.6); RBC Distribution Width SD 38.4 fl (35.1-43.9); Red Blood Count 5.19 M/mm3 (4.2-5.4); White Blood Count 7.5 K/mm3 (4.4-11.0)
[2024-12-31 12:12] LABS: AST(SGOT) 15 U/L (<=31); Alanine Aminotransfer ALT/SGPT 13 U/L (<=34); Albumin, Serum 3.9 g/dL (3.4-4.8); Alkaline Phosphatase 65 U/L (35-104); Anion Gap 11 (5-15); BUN 11 mg/dL (4-19); BUN/Creat Ratio 15.7 RATIO (10-20); Calcium,Total 9.3 mg/dL (7.6-11.0); Carbon Dioxide 24.2 mmol/L (21.0-32.0); Chloride 106 mmol/L (98-108); Cholesterol 141 mg/dL (<=200); Globulin 2.6 g/dL (2.2-4.2); Glucose 113 mg/dL (70-99); Low Density Lipoprotein Calc. 78 mg/dL; Potassium 3.9 mmol/L (3.3-5.1); Triglycerides 103 mg/dL; Very Low Density Lipoprotein 21 mg/dL (5-40); Vitamin D,25 Hydroxy 46.4 ng/mL (30-100); cholesterol:hdl ratio screen 3.35
== END | disposition home or self-care (01) ==
LOC: LAB 09:28
PROVIDERS: PCP Internal Medicine; Referring Provider Internal Medicine; Visit Provider Internal Medicine
DX: E11.9 Type 2 diabetes mellitus without complications (principal); I10 Essential (primary) hypertension; E78.2 Mixed hyperlipidemia; K76.0 Fatty (change of) liver, not elsewhere classified; E55.9 Vitamin D deficiency, unspecified
CPT/HCPCS: 36415; 80053; 80061; 82105; 82306; 83036; 85025

== ENCOUNTER → 2025-01-17 | Outpatient (CLI) | payer MEDICARE, BC, SELFPAY ==
--- NOTE | 2025-01-17 06:17 | CT_ITS ---
PROCEDURE: CT/CTA Chest W/WO Contrast
== END | disposition home or self-care (01) ==
LOC: CT 06:17
PROVIDERS: PCP Internal Medicine; Referring Provider Internal Medicine; Visit Provider Internal Medicine
DX: I77.810 Thoracic aortic ectasia (principal)
CPT/HCPCS: 71275; Q9967

== ENCOUNTER → 2025-02-21 | Outpatient (CLI) | payer MEDICARE, BC, SELFPAY ==
[2025-02-21 09:44] LABS: Red Blood Cells-Urine 0 SEEN /hpf (0-5)
[2025-02-21 12:23] LABS: Hematocrit 41.8 % (37-47); Hemoglobin 14.2 g/dL (12.0-15.0); Immature Granulocytes Count 0.050 X10^3/uL (0.0-0.0); Mean Corp Hgb Conc 34.0 g/dL (32-36); Mean Corpuscular Volume 83.4 fL (81-99); Mean Platelet Vol. 10.1 fl (6.2-12.0); NRBC Flagged by Analyzer 0 % (0-5); Platelet Count 248 K/mm3 (150-450); RBC Distribution Width CV 12.5 % (11.6-14.6); RBC Distribution Width SD 38.0 fl (35.1-43.9); Red Blood Count 5.01 M/mm3 (4.2-5.4); White Blood Count 9.4 K/mm3 (4.4-11.0)
[2025-02-21 12:26] LABS: Color, Urine Yellow (Yellow); Glucose, Dipstick Normal (Normal); Ketone-Dipstick Negative (Negative); Leukocyte Esterase-Dipstick 500 /ul (Negative); Nitrite-Dipstick Negative (Negative); Occult Blood-Urine Negative /ul (Negative); Protein-Dipstick 30 mg/dl (Negative); Specific Gravity, Urine 1.020 (1.002-1.030); Urine Bilirubin Dipstick Negative (Negative)
[2025-02-21 12:40] LABS: Mucous, Urine 2+ /hpf (<or=2+); Squamous Epithelial Cells - UA 10-25 SEEN /hpf (5-10)
[2025-02-21 13:01] LABS: Creatinine, Urine (random) 196.00 mg/dL (28.00-217.00); Microalbumin,Random Urine < 12.0 mg/L (<20 mg/L)
[2025-02-21 13:23] LABS: AST(SGOT) 10 U/L (<=31); Alanine Aminotransfer ALT/SGPT 16 U/L (<=34); Albumin, Serum 4.1 g/dL (3.4-4.8); Alkaline Phosphatase 62 U/L (35-104); Anion Gap 10 (5-15); BUN 16 mg/dL (4-19); BUN/Creat Ratio 22.6 RATIO (10-20); Calcium,Total 9.2 mg/dL (7.6-11.0); Carbon Dioxide 25.4 mmol/L (21.0-32.0); Chloride 107 mmol/L (98-108); Globulin 2.1 g/dL (2.2-4.2); Glucose 99 mg/dL (70-99); Potassium 3.8 mmol/L (3.3-5.1); Vitamin B12 1005 pg/mL (180-914)
[2025-02-21 13:25] LABS: FOLATES,SERUM (FOLIC ACID) 11.50 ng/mL (4.60-34.80)
== END | disposition home or self-care (01) ==
LOC: LABSPEC 09:43
PROVIDERS: PCP Internal Medicine; Referring Provider Internal Medicine; Visit Provider Internal Medicine
DX: E53.8 Deficiency of other specified B group vitamins (principal); E11.9 Type 2 diabetes mellitus without complications
CPT/HCPCS: 80053; 81001; 82043; 82570; 82607; 82746; 85025

== ENCOUNTER → 2025-03-07 | Outpatient (CLI) | payer MEDICARE, BC, SELFPAY | END | disposition home or self-care (01) | LOC: LABSPEC 10:17 | PROVIDERS: PCP Internal Medicine; Referring Provider Internal Medicine; Visit Provider Internal Medicine | DX: R82.90 Unspecified abnormal findings in urine (principal) | CPT/HCPCS: 87086; 87088 ==